=== PATIENT | male | born 1970 | race Caucasian/White ===

== ENCOUNTER 2022-08-05 09:52 | Emergency (ER) | payer OTHER, SELFPAY ==
[2022-08-05 09:58] VITALS: PULSE 104; RESP 18; TEMP 36.8; O2SAT 98; BMI 33.5
[2022-08-05 10:19] VITALS: BP 173/123; BMI 33.5
--- NOTE | 2022-08-05 10:20 | PC.NURSE ---
pt bp was 178/123 pt states he takes something for bp and he didnt this morning and states he is having 10/10 pain
--- NOTE | 2022-08-05 10:24 | PC.NURSE ---
Blood pressure rechecked and is 180/110 manually. Pt states he did not take his meds yet today
--- NOTE | 2022-08-05 10:24 | ED.UPPEXIN1 ---
HPI - Extremity Injury (Upper) General Stated Complaint: UPPER EXTRMITY INJURY Time Seen by Provider: 08/05/22 10:19 Source: patient Mode of arrival: walk-in Limitations: no limitations History of Present Illness HPI narrative: this patient's here complaining of pain in his left bicep area. He was lifting some heavy equipment a couple days ago and felt a pop and tear. He is right-hand dominant. He's never had any injuries to his upper extremity. He does have insurance. He does not have a loss of feeling. Now is Some ecchymosis in the dependent portion of his left bicep. Did not have any pain in the shoulder. He did not fall. Related Data Home Medications Medication Instructions Recorded Confirmed albuterol sulfate 90 mcg/actuation 2 inh inhalation Q6H PRN shortness 08/05/22 08/05/22 aerosol inhaler (ProAir HFA) of breath or wheezing atorvastatin 20 mg tablet 20 mg PO QPM 08/05/22 08/05/22 chlorthalidone 25 mg tablet 25 mg PO DAILY 08/05/22 08/05/22 glipizide 10 mg tablet 10 mg PO DAILY 08/05/22 08/05/22 hydroxyzine pamoate 25 mg capsule 25 mg PO .qhs PRN anxiety 08/05/22 08/05/22 insulin detemir U-100 100 unit/mL 25 unit subcut QPM 08/05/22 08/05/22 subcutaneous solution (Levemir U-100 Insulin) lisinopril 20 mg tablet 20 mg PO DAILY 08/05/22 08/05/22 omeprazole 20 mg capsule,delayed 20 mg PO DAILY 08/05/22 08/05/22 release potassium chloride 10 mEq 10 meq PO DAILY 08/05/22 08/05/22 tablet,extended release (K-Tab) sildenafil 50 mg tablet 50 mg PO DAILY PRN sexual activity 08/05/22 08/05/22 venlafaxine 37.5 mg tablet 37.5 mg PO DAILY 08/05/22 08/05/22 Allergies Allergy/AdvReac Type Severity Reaction Status Date / Time metformin AdvReac Intermediate Uncoded 08/05/22 09:57 [facility] Medical History (Updated 08/05/22 @ 10:27 by Demetrius Abarca MD) Exam Narrative Exam Narrative: very pleasant gentleman vital signs show mild elevation of his blood pressure. We will recheck that. Overall examination awake alert oriented ?3 in no real discomfort. Problem focused examination Extremities shows ecchymosis over the dependent portion of the left biceps. He has exquisite tenderness to palpation with palpable defect in the left shoulder area at the area of the biceps tendon insertion. I cannot discriminate if it is short of the long head. His neurovascular examination is normal. We will try to contact orthopedic coverage today for follow-up and further evaluation and treatment Constitutional Vital Signs - 24 hr 08/05/22 09:58 08/05/22 10:19 Temperature 98.3 F Pulse Rate [Monitor] 104 H Respiratory Rate 18 Blood Pressure [Left Arm] 173/123 H Pulse Oximetry 98 Oxygen Delivery Method Room Air Course Vital Signs Vital signs: Vital Signs Temperature 98.3 F 08/05/22 09:58 Pulse Rate 104 H 08/05/22 09:58 Respiratory Rate 18 08/05/22 09:58 Pulse Oximetry 98 08/05/22 09:58 Oxygen Delivery Method Room Air 08/05/22 09:58 Temperature 98.3 F 08/05/22 09:58 Pulse Rate 104 H 08/05/22 09:58 Respiratory Rate 18 08/05/22 09:58 Blood Pressure 173/123 H 08/05/22 10:19 Pulse Oximetry 98 08/05/22 09:58 Oxygen Delivery Method Room Air 08/05/22 09:58 MDM - Extremity Injury (Upper) MDM Narrative Medical decision making narrative: patient was a semi-acute left biceps muscle tendon tear. We'll arrange follow-up. Must not use this arm until this is further evaluated. Discharge Plan Discharge Clinical Impression: Injury of tendon of biceps Patient Disposition: Home, Self-Care Time of Disposition Decision: 10:27 Prescriptions / Home Meds: No Action hydroxyzine pamoate 25 mg capsule 25 mg PO .qhs PRN (Reason: anxiety) potassium chloride [K-Tab] 10 mEq tablet extended release 10 meq PO DAILY atorvastatin 20 mg tablet 20 mg PO QPM lisinopril 20 mg tablet 20 mg PO DAILY glipizide 10 mg tablet 10 mg PO DAILY venlafaxine 37.5 mg tablet 37.5 mg PO DAILY chlorthalidone 25 mg tablet 25 mg PO DAILY omeprazole 20 mg capsule,delayed release(DR/EC) 20 mg PO DAILY sildenafil 50 mg tablet 50 mg PO DAILY PRN (Reason: sexual activity) Rx Instructions: administer 30 minutes to 4 hours before activity Levemir U-100 Insulin 100 unit/mL solution 25 unit subcut QPM albuterol sulfate [ProAir HFA] 90 mcg/actuation HFA aerosol inhaler 2 inh inhalation Q6H PRN (Reason: shortness of breath or wheezing) Additional Instructions: follow-up with orthopedics/no lifting left arm Stand Alone Forms: Portal Instructions Referrals: Physician,Non-Staff, MD [Primary Care Provider] - 1 week
--- NOTE | 2022-08-05 10:43 | ED_ITS ---
HPI - Extremity Injury (Upper) General Stated Complaint: UPPER EXTRMITY INJURY Time Seen by Provider: 08/05/22 10:19 Source: patient Mode of arrival: walk-in Limitations: no limitations History of Present Illness HPI narrative: patient's here complaining of pain in his left upper shoulder area. 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 He is right-handed dominant. He does not have a loss of feeling. Now he developed a little bit of ecchymosis as well in the distal biceps area. The rest of forearm wrist hand are normal. Related Data Home Medications Medication Instructions Recorded Confirmed albuterol sulfate 90 mcg/actuation 2 inh inhalation Q6H PRN shortness 08/05/22 08/05/22 aerosol inhaler (ProAir HFA) of breath or wheezing atorvastatin 20 mg tablet 20 mg PO QPM 08/05/22 08/05/22 chlorthalidone 25 mg tablet 25 mg PO DAILY 08/05/22 08/05/22 glipizide 10 mg tablet 10 mg PO DAILY 08/05/22 08/05/22 hydroxyzine pamoate 25 mg capsule 25 mg PO .qhs PRN anxiety 08/05/22 08/05/22 insulin detemir U-100 100 unit/mL 25 unit subcut QPM 08/05/22 08/05/22 subcutaneous solution (Levemir U-100 Insulin) lisinopril 20 mg tablet 20 mg PO DAILY 08/05/22 08/05/22 omeprazole 20 mg capsule,delayed 20 mg PO DAILY 08/05/22 08/05/22 release potassium chloride 10 mEq 10 meq PO DAILY 08/05/22 08/05/22 tablet,extended release (K-Tab) sildenafil 50 mg tablet 50 mg PO DAILY PRN sexual activity 08/05/22 08/05/22 venlafaxine 37.5 mg tablet 37.5 mg PO DAILY 08/05/22 08/05/22 Allergies Allergy/AdvReac Type Severity Reaction Status Date / Time metformin AdvReac Intermediate Uncoded 08/05/22 09:57 [facility] Medical History (Updated 08/05/22 @ 10:27 by Demetrius Abarca MD) Exam Narrative Exam Narrative: awake alert pleasant. His mild discomfort. Problem focused examination shows ecchymosis over the distal area of the left biceps. He has point tenderness at the area the biceps insertion into the shoulder. There is no pain in the shoulder and clavicle or the before meals joint. His elbow forearm and hand are otherwise normal. Constitutional Vital Signs - 24 hr 08/05/22 09:58 08/05/22 10:19 Temperature 98.3 F Pulse Rate [Monitor] 104 H Respiratory Rate 18 Blood Pressure [Left Arm] 173/123 H Pulse Oximetry 98 Oxygen Delivery Method Room Air Course Vital Signs Vital signs: Vital Signs Temperature 98.3 F 08/05/22 09:58 Pulse Rate 104 H 08/05/22 09:58 Respiratory Rate 18 08/05/22 09:58 Pulse Oximetry 98 08/05/22 09:58 Oxygen Delivery Method Room Air 08/05/22 09:58 Temperature 98.3 F 08/05/22 09:58 Pulse Rate 104 H 08/05/22 09:58 Respiratory Rate 18 08/05/22 09:58 Blood Pressure 173/123 H 08/05/22 10:19 Pulse Oximetry 98 08/05/22 09:58 Oxygen Delivery Method Room Air 08/05/22 09:58 MDM - Extremity Injury (Upper) MDM Narrative Medical decision making narrative: history of physical are consistent with a biceps tendon tear. I contacted on- call orthopedics and they'll see him this week. They placed him in a sling. Discharge Plan Discharge Clinical Impression: Injury of tendon of biceps Patient Disposition: Home, Self-Care Time of Disposition Decision: 10:27 Prescriptions / Home Meds: No Action hydroxyzine pamoate 25 mg capsule 25 mg PO .qhs PRN (Reason: anxiety) potassium chloride [K-Tab] 10 mEq tablet extended release 10 meq PO DAILY atorvastatin 20 mg tablet 20 mg PO QPM lisinopril 20 mg tablet 20 mg PO DAILY glipizide 10 mg tablet 10 mg PO DAILY venlafaxine 37.5 mg tablet 37.5 mg PO DAILY chlorthalidone 25 mg tablet 25 mg PO DAILY omeprazole 20 mg capsule,delayed release(DR/EC) 20 mg PO DAILY sildenafil 50 mg tablet 50 mg PO DAILY PRN (Reason: sexual activity) Rx Instructions: administer 30 minutes to 4 hours before activity Levemir U-100 Insulin 100 unit/mL solution 25 unit subcut QPM albuterol sulfate [ProAir HFA] 90 mcg/actuation HFA aerosol inhaler 2 inh inhalation Q6H PRN (Reason: shortness of breath or wheezing) Additional Instructions: follow-up with orthopedics/no lifting left arm Stand Alone Forms: Portal Instructions Referrals: Physician,Non-Staff, MD [Primary Care Provider] - 1 week
== END 2022-08-05 11:05 | disposition home or self-care (01) ==
PROVIDERS: Emergency Provider Emergency Medicine Emergency Medical Services
DX: S46.212A Strain of muscle, fascia and tendon of other parts of biceps, left arm, initial encounter (principal); X50.0XXA Overexertion from strenuous movement or load, initial encounter; Z79.899 Other long term (current) drug therapy; Z79.4 Long term (current) use of insulin
CPT/HCPCS: 99282

== ENCOUNTER 2023-03-22 10:15 | Outpatient (OUT) | payer OTHER, SELFPAY ==
[2023-03-22 10:58] LABS: Basophils Absolute Auto 0.1 10^3/uL (0.0-0.1); Eosinophils Absolute Auto 0.1 10^3/uL (0.0-0.7); Eosinophils Percent Auto 1.1 % (0.9-7.0); Hematocrit 44.2 % (42.0-54.0); Hemoglobin 15.7 g/dL (14.0-18.0); Immature Granulocytes Abs Auto 0.03 10^3/uL (0.00-0.03); Immature Granulocytes Pct Auto 0.3 % (0.0-0.5); Lymphocytes Absolute Auto 2.1 10^3/uL (1.2-3.8); Lymphocytes Percent Auto 23.5 % (20.5-60.0); Mean Corpuscular HGB Conc 35.5 g/dL (29.9-35.2); Mean Corpuscular Hemoglobin 30.4 pg (25.9-34.0); Mean Corpuscular Volume 85.7 fL (80.0-94.0); Mean Platelet Volume 10.6 fL (9.5-13.5); Monocytes Absolute Auto 0.8 10^3/uL (0.3-0.8); Neutrophils Absolute Auto 5.8 10^3/uL (1.4-6.5); Neutrophils Percent Auto 65.1 % (43.0-75.0); Platelet Count 268 10^3/uL (150-450); Red Blood Count 5.16 10^6/uL (4.70-6.10); Red Cell Distribution Width 12.7 % (11.0-15.0); White Blood Count 8.9 10^3/uL (4.0-11.0)
[2023-03-22 11:30] LABS: Alanine Aminotransferase 31 U/L (16-63); Albumin Globulin Ratio 0.9; Albumin Level 3.5 g/dL (3.4-5.0); Alkaline Phosphatase 68 U/L (46-116); Anion Gap 9.9; Aspartate Amino Transferase 15 U/L (15-37); BUN Creatinine Ratio 17.8; Bilirubin Total 0.8 mg/dL (0.2-1.0); Carbon Dioxide 32.6 mmol/L (21.0-32.0); Chloride 101 mmol/L (98-107); Chol HDL Ratio 3.4; Cholesterol 147 mg/dL (<=200); Estimated GFR (African America >60 (>=60); Estimated GFR (Non-African Ame >60 (>=60); Glucose 228 mg/dL (74-106); HDL Cholesterol 43 mg/dL (40-60); Potassium 3.5 mmol/L (3.5-5.1); Sodium 140 mmol/L (136-145); Total Protein 7.5 g/dL (6.4-8.2); Triglycerides 152 mg/dL (<=150); VLDL CHOLESTEROL 30.4 mg/dL
[2023-03-22 11:41] LABS: Prostate Specific Antigen Scrn 0.81 ng/mL (<=4.00)
[2023-04-01 12:13] LABS: Free Testosterone(Direct) 5.8 pg/mL (7.2-24.0); Testosterone 198 ng/dL (264-916)
== END 2023-03-22 10:16 | disposition home or self-care (01) ==
LOC: LAB 10:18
PROVIDERS: PCP Nurse Practitioner Family; Visit Provider Nurse Practitioner Family
DX: N52.9 Male erectile dysfunction, unspecified (principal); E11.9 Type 2 diabetes mellitus without complications; I10 Essential (primary) hypertension; Z12.5 Encounter for screening for malignant neoplasm of prostate
CPT/HCPCS: 36415; 80053; 80061; 84402; 84403; 85025; G0103

== ENCOUNTER 2025-01-05 09:24 | Outpatient (OUT) | payer OTHER, SELFPAY ==
--- OUTSIDE RECORDS SUMMARY | 2025-01-05 09:27 | XMS_ITS | Patient Health Record ---
Author Organization [facility] Address [address] [place] [address] Care Team Providers Care Group Sales Coordinator Name Role Phone Mitch SHAVER, Cj Primary Care Provider Unavailab Sloan Roldan Unavailable [phone] Reason For Referral No Information Medications Medication SIG (Take, Route, Frequency, Duration) Notes Start Date End Date Status lisinopril 10 mg take 1 tablet by ora l route every day ORAL LISINOPRIL Active Trileptal 300 mg take 1 tablet by ora l route 2 times every day ORAL TRILEPTAL Active indomethacin 50 mg take 1 capsule by or al route 3 times every day with food ORAL INDOMETHACIN Active Ultram 50 mg take 1 - 2 by Oral r oute every 6 - 8 hours Max of 3 per day. ORAL ULTRAM Active Plan Of Treatment No Information
--- OUTSIDE RECORDS SUMMARY | 2025-01-05 09:27 | XMS_ITS | Clinical Summary ---
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 Primary Care Provider Allergies Active AllergyReactionsCriticalityNoted DateCommentsMetforminDiarrhea,GI jjgpmzlefmv00/28/2023 Medications MedicationSigDispense QuantityRefillsLast FilledStart DateEnd DateStatus hydrOXYzine HCl (Atarax) 25 MG tablet 03/04/2022ctive atorvastatin (Lipitor) 20 MG tablet 03/04/2022ctive lisinopril 20 MG tablet 09/12/2021ctive glipiZIDE (Glucotrol) 10 MG tablet 02/26/2022ctive venlafaxine (Effexor) 37.5 MG tablet 03/04/2022ctive chlorthalidone (Hygroton) 25 MG tablet 03/04/2022ctive omeprazole (PriLOSEC) [address] capsule 03/04/2022ctive Levemir FlexTouch 100 UNIT/ML pen 03/11/2022ctive ProAir HFA 108 (90 Base) MCG/ACT inhaler 09/12/2021ctive potassium chloride ER (Micro-K) 10 MEQ ER capsule Take 10 mEq by mouth in the morning and 10 mEq before bedtime. Do not crush or chew. .Active sildenafil (Viagra) 50 MG tablet Take 50 mg by mouth Daily as needed for erectile dysfunction.Active Active Problems ProblemNoted DateDiagnosed DateAcute postoperative pain of left shoulder 12/15/2023S/P arthroscopy of left ggujyayu61/04/2024cute pain of left shoulder 09/29/2023Traumatic complete tear of left rotator cuff09/29/2023 Family History Medical HistoryRelationNameCommentsSkin cancerFatherStrokeMotherRelationName StatusCommentsFatherAliveMotherAlive Social History Tobacco UseTypesPacks/DayYears UsedDateSmoking Tobacco: NeverSmokeless Tobacco: CurrentChew Tobacco Cessation:Ready to Q uit: Not Asked; Counseling Given: Not Answered Alcohol UseStandard Drinks/WeekCommentsYes0 (1 standard drink = 0.6 oz pure alcohol)Sex and Gender InformationValueDate RecordedSex Assigned at BirthNot on fileLegal AjtHqpo7708/05/2022 11:20 AM EDTGender IdentityNot on fileSexual OrientationNot on file Last Filed Vital Signs Vital SignReadingTime TakenCommentsBlood Pressure--Pulse--Temperature-- Respiratory Rate--Oxygen Saturation--Inhaled Oxygen Concentration--Kehjho938 kg (283 lb)10/23/2023 8:31 AM ZFWZfqynf856.9 cm (6')10/23/2023 8:31 AM EDTBody Mass Index38.3809 8:31 AM EDT Plan of Treatment Not on file Insurance [address] [place] [address] Care Teams Team MemberRelationshipSpecialtyStart DateEnd Date Korina Crews NP [address] [place] [address] [place] [address] [facility]03/24/23
--- NOTE | 2025-01-05 09:28 | US_ITS ---
The [address] [address] Patient Name: RICHARD DUMONT MRN: [id number] date: 1970 Sex: M Assigned Patient Location: US Current Patient Location: US Accession/Order Number: [id number] Exam Date: 01/05/2025 09:30 Report Date: 01/05/2025 10:18 At the request of: OLU ENCARNACION Procedure: US abdomen limited LIMITED ULTRASOUND - left lower quadrant wall: CLINICAL HISTORY: Painful left lower quadrant lump/swelling for the past 2 weeks COMPARISON: None Real-time ultrasound evaluation of the area of patient's lump was performed. The right side was also scanned for comparison. The subcutaneous soft tissues appear edematous. There is also an irregular complex appearing fluid collection at the site of concern measuring at least 5.8 x 2.2 x 5.5 cm in size. There is some reverberation artifact which could indicate the presence of air. Soft tissue abscess is the leading differential consideration. Correlation and follow-up will be needed. US/US abdomen limited IMPRESSION: EDEMA WITH COMPLEX SUBCUTANEOUS FLUID COLLECTION AT THE LEFT LOWER QUADRANT. ABSCESS IS POSSIBLE IN THE CORRECT CLINICAL SETTING. CLINICAL CORRELATION IS RECOMMENDED. CT FOLLOW-UP COULD BE CONSIDERED IF ADDITIONAL IMAGING EVALUATION IS WARRANTED. Impression dictated by: Susy Greene M.D. 01/05/2025 10:18 AM Dictation Location: [place] [address] Electronically authenticated by: [id number] Y Date: 01/05/2025 10:18
--- OUTSIDE RECORDS SUMMARY | 2025-01-05 09:29 | XMS_ITS | CCD ---
Author Organization [facility] Care Team Providers Care Manual Arts Therapist Name Role Phone PHYLLIS CRUZ Attending Unavailable FANI KLEIN Primary Care Unavailable FANI KLEIN Consulting Unavailable Fani Klein Primary Care Provider [phone] Pete Jc Primary Care Provider Pete Jc DDS Primary Care Provider Darren ARTEAGA - Noreen DAILEY Primary Care Provider NOREEN CHAMPION Primary Care Unavailable NOREEN CHAMPION Referring Unavailable FANI KLEIN Primary Care Unavailable Noreen Champion CNP Primary Care Provider NO, PHYSICIAN Primary Care Unavailable QASIM DICKEY Attending Unavailab Korina Mcneil Unavailable Korina Crews NP Primary Care Provider Umesh Fitzgerald Unavailable JENNI Crews Primary Care Provider MD Umesh Fitzgerald Attending Provider YO CORRALES Attending Unavailable YO CORRALES Attending Unavailable YO CORRALES Referring Unavailable JR. GONG GEORGE C Attending Unavaila ALAN Owens Attending Unavailable JR. URSULA, KILLIAN Orr Attending Unavaila YO Holloway Attending Unavailable YO CORRALES Attending Unavailable BRITTNEY, ALINA Attending Unavailable YO CORRALES Referring Unavailable BRITTNEY, ALINA Attending Unavailable YO CORRALES Referring Unavailable BRITTNEY, ALINA Attending Unavailable YO CORRALES Referring Unavailable KARINE CARTER Attending Unavailable YO CORRALES Referring Unavailable YO CORRALES Attending Unavailable KARINE CARTER Attending Unavailable CORRALES, YO J Referring Unavailable MORRIS REDDING Attending Unavailable CORRALES, YO J Referring Unavailable BRITTNEY, ALINA Attending Unavailable CORRALES, YO J Referring Unavailable BRITTNEY, ALINA Attending Unavailable CORRALES, YO J Referring Unavailable CORRALES, YO J Attending Unavailable BRITTNEY, ALINA Attending Unavailable CORRALES, YO J Referring Unavailable WEREBEKA GRANGER Attending Unavailable SANDRA SCHREIBER Attending Unavailable CORRALES, YO García Referring Unavailable MARQUIS JIMENEZ Attending Unavailable CORRALES, YO J Referring Unavailable CORRALES, YO J Attending Unavailable SANDRA SCHREIBER Attending Unavailable Korina Crews Primary Care Unavailable Asaad, Imad Attending Unavailable Asaad, Imad Admitting Unavailable KORINA CREWS Primary Care Physician SALVADOR COREA Attending Unavailab SALVADOR Herr Admitting Unavailab KORINA Herr E Attending Unavailable KORINA COREA E Attending Unavailable KORINA HERNANDEZ E Attending Unavailable KORINA HERNANDEZ E Admitting Unavailable KORINA HERNANDEZ E Attending Unavailable Odessa Em Referring Unavailable KORINA Attending Unavailable KORINA HERNANDEZ E Attending Unavailable KORINA HERNANDEZ E Admitting Unavailable KORINA E Attending Unavailable Trinity Estes Attending Unavailable Allergies Allergy ClassificationReported Allergen(s)Allergy TypeDate of OnsetReaction(s) Facility (1 source)No Known Medication Allergies; Translations: [No Known Medication Allergies]Propensity to adverse reactions to drug (disorder)[facility] (11 sources)-No Environmental AllergiesAllergy to substanceHealth [facility] Work Phone: (20 sources)metFORMIN; Translations: [metformin]Drug Badqwed89-64-9118Ffvxydhk, GI intolerance, Stomach ache (finding)[facility] (1 source)metFORMINDrug Ongolwt80-50[facility]9060[facility] Medications Current Medications MedicationDrug Class(es)DatesSig (Normalized)Sig (Original)acetaminophen 325 mg / HYDROcodone bitartrate 5 mg oral tablet (14 sources)Opioid AgonistStart: 07-68-2664whrm 1 tablet by mouth every six hoursHYDROcodone-acetaminophen ([place]) 5-325 MG tablet Take 1 tablet by mouth every 6 (six) hours. 0 08/05/2022 ActiveStart: 03-23-2015 End: 78-64-8158EHHKXgqfweq-Acetaminophen 10-325 MG OR TABS 03/23/2015 - 01/10/2020 Provider:acetaminophen 325 mg / oxyCODONE hydrochloride 5 mg oral tablet (9 sources)Opioid AgonistStart: 12-29-2023 End: 61-73-7672xxnd 1 tablet by mouth every eight hours for painoxyCODONE- acetaminophen (Percocet) 5-325 MG tablet Indications: S/P arthroscopy of left shoulder Take 1 tablet by mouth every 8 (eight) hours if needed for severe pain for up to 5 days 15 tablet 12/29/2023 01/03/2024 ActiveStart: 12-09-2023 End: 90-25-4014zrfu 1 tablet by mouth every six hours for painoxyCODONE- acetaminophen (Percocet) 5-325 MG tablet Indications: Post-op pain Take 1 tablet by mouthevery 6 (six) hours if needed for moderate pain for up to 5 days 20 tablet 12/09/2023 12/14/2023 ActiveStart: 11-21-2023 End: 27-93-9604ejoj 1 tablet by mouth every six hours for painoxyCODONE- acetaminophen (Percocet) 5-325 MG tablet Indications: Post-op pain Take 1 tablet by mouthevery 6 (six) hours if needed for moderate pain for up to 5 days 20 tablet 11/21/2023 11/26/2023 [id number] 200 actuat albuterol 0.09 mg/actuat metered dose inhaler (20 sources)beta2-Adrenergic AgonistStart: 81-32-3830ewgu 1 puff(s) by inhalation every four hoursAlbuterol Sulfate Active 2 PUFF INHALATION Every 4 hours April 21, 2023 12:00amStart: 49-24-2073PitQfu HFA 108 (90 Base) MCG/ACT inhaler 09/12/2021 ActiveStart: 32-07-5527LdtFhi HFA 108 (90 Base) MCG/ACT Inhalation Aerosol Solution 05/22/2020 Provider: Noreen Champion CNPStart: 76-85-5459BmfBti HFA 108 (90 Base) MCG/ACT Inhalation Aerosol Solution 05/22/2020 Provider: Noreen Champion CNPtake 2 puff(s) by inhalation every four hours as neededAlbuterol Sulfate HFA 108 (90 Base) MCG/ACT 2 puffs as needed Inhalation every 4 hrs Activetake 2 puff(s) by inhalation every six hours as needed for wheezingalbuterol sulfate HFA 108 (90 BASE) MCG/ACT inhaler Inhale 2 puffs into the lungs every 6 hours as needed for Wheezing 0 Activetake 2 puff(s) by inhalation every six hours as needed for wheezingalbuterol sulfate HFA 108 (90 BASE) MCG/ACT inhaler Inhale 2 puffs into the lungs every 6 hours as needed for Wheezing 0 ActiveAlcohol Prep 70% Pad (2 sources)Start: 63-66-2718Fprigrg Prep 70% Pad 05/22/2020 Provider: Noreen Champion CNPAlcohol Prep 70% Pad (9 sources)Start: 86-29-1776Mbwzsmt Prep 70% Pad 05/22/2020 Provider: Noreen Champion CNPatorvastatin 20 mg oral tablet (20 sources)HMG-CoA Reductase InhibitorStart: 31-81-7846xdqkxcdsvsmp (Lipitor) 20 MG tablet 03/04/2022 ActiveStart: 05-22-2020 End: 22-78-1709Vhlfhgcoruhi Calcium 20 MG Oral Tablet 12/20/2020 Provider: Noreen Champion CNPchlorthalidone 15 mg oral tablet (20 sources)Thiazide-like DiureticStart: 35-46-6879lsvw 15 mg by mouth once dailychlorthalidone 15 mg, Oral, Daily, Refills(s) 0 Start Date: 04/12/24 Status: Ordered Repeat number: 1Start: 42-45-2822gcjcqcbkqnpppi (Hygroton) 25 MG tablet 03/04/2022 ActiveStart: 07-20-2020 End: 69-69-1795Ipxdwxyieiybev 25 MG Oral Tablet 11/08/2020 - 12/20/2020 Provider: Noreen Champion CNPStart: 08-26-2016 End: 86-85-7029Aqsewfpdzvbbxz 25 MG OR TABS 04/25/2017 - 01/10/2020 Provider:0.5 ML dulaglutide 6 MG/ML Auto-Injector [Trulicity] (20 sources)GLP-1 Receptor AgonistStart: 87-60-0893Qlvcvbult Pen 3 mg/0.5 mL subcutaneous solution 3 mg, Refills(s) 0 Start Date: 04/12/24 Status: Ordered Repeat number: 1Start: 14-81-1631Ndfyizcqa Pen 3 mg/0.5 mL subcutaneous solution 3 mg, Refills(s) 0 Start Date: 04/12/24 Status: OrderedStart: 08-25-2020 End: 95-74-6115Rykvoqeoz 0.75 MG/0.5ML Subcutaneous Solution Pen-injector 08/25/2020 - 08/25/2020 Provider: Tavia FELTONStart: 05-22-2020 End: 59-79-5381Ywutwnudp 0.75 MG/0.5ML Subcutaneous Solution Pen-injector 05/22/2020 - 07/20/2020 Provider: Tavia FELTONglipiZIDE 10 mg oral tablet (20 sources)SulfonylureaStart: 33-41-8271vmxloPGFE 10 mg, Oral, Refills(s) 0 Start Date: 04/12/24 Status: Ordered Repeat number: 1Start: 50-19-0475iesz 5 mg by mouth once dailyGlipizide Active 5 MG PO Daily April 21, 2023 12:00amStart: 33-59-8555zjpjlFSLJ (Glucotrol) 10 MG tablet 02/26/2022 Activetake 1 tablet by mouth every twenty-four hoursglipiZIDE XL 10 MG 1 tablet with food Orally Once a day for 90 days ActiveglipiZIDE XL 5 MG Oral Tablet Extended Release 24 Hour (7 sources)Start: 83-93-9205yvft 1 tablet by mouth every twenty-four hours glipiZIDE XL 5 MG Oral Tablet Extended Release 24 Hour 12/20/2020 Provider: Noreen Champion CNPStart: 08-25-2020 End: 41-67-1862mena 1 tablet by mouth every twenty-four hoursglipiZIDE XL 5 MG Oral Tablet Extended Release 24 Hour 08/25/2020 - 12/20/2020 Provider: Noreen Champion CNPStart: 07-40-2741kpyv 1 tablet by mouth every twenty-four hours glipiZIDE XL 5 MG Oral Tablet Extended Release 24 Hour 08/25/2020 Provider: Noreen Champion CNPhydrOXYzine hydrochloride 25 mg oral tablet (20 sources)AntihistamineStart: 26-65-6213fotgADIhsaj HCl (Atarax) 25 MG tablet 03/04/2022 ActiveStart: 05-22-2020 End: 64-27-3529rsmpACAyvti HCl 25 MG Oral Tablet 12/06/2020 - 02/04/2021 Provider: Noreen Champion CNPinsulin detemir (20 sources)Insulin AnalogStart: 48-00-6968ievmyj 10 [IU] by subcutaneous injection once daily at bedtimeInsulin Detemir U-100 Active 10 UNIT SUBCUT Daily at bedtime April 21, 2023 12:00amStart: 50-96-9197Nwtfxqc FlexTouch 100 UNIT/ML pen 03/11/2022 ActiveStart: 08-25-2020 End: 55-27-7665Sjojxnv 100 UNIT/ML Subcutaneous Solution 12/20/2020 Provider: Noreen Champion CNPStart: 07-21-2020 End: 99-27-3196Uboggzq 100 UNIT/ML Subcutaneous Solution 08/01/2020 - 08/01/2020 Provider: Tiffanie Lopez CNPinject 10 [IU] by subcutaneous injection at bedtimeLevemir FlexPen 100 UNIT/ML 10 units Subcutaneous at bedtime for 30 days ActiveLevemir FlexPen 100 UNIT/ML 25 units Subcutaneous at bedtime Active lisinopril 30 mg oral tablet (20 sources)Angiotensin Converting Enzyme InhibitorStart: 68-47-1129udljgnhxgk 30 mg Tab 30 mg = 1 tab(s), Refills(s) 0 Start Date: 04/12/24 Status: Ordered Repeat number: 1Start: 28-08-7898rgxvtlzglj 20 MG tablet 09/12/2021 ActiveStart: 12-05-2020 End: 98-85-4525Wbpppmltos 20 MG Oral Tablet 12/20/2020 Provider: Noreen Champion CNPStart: 05-22-2020 End: 18-99-0279Sdojjtvfml 10 MG Oral Tablet 07/20/2020 - 12/05/2020 Provider: Noreen Champion CNPStart: 03-07-2018 End: 11-72-7283LBZVFJOAHA MISC 03/07/2018 - 01/10/2020 Provider:Start: 03-07-2018 End: 39-53-5913DUVHQEJIYA MISC 03/07/2018 - 03/07/2018 Provider:Start: 04-17-2016 End: 39-53-5559Ndmafcycjz 40 MG OR TABS 04/25/2017 - 01/10/2020 Provider:Start: 12-25-2015 End: 44-16-1773Uhjemdihmb 30 MG OR TABS 12/25/2015 - 01/10/2020 Provider: loratadine 10 mg oral tablet (5 sources)Start: 19-37-4381Axfyugotzt 10 MG Oral Tablet 11/13/2020 Provider: Tiffanie Lopez CNPomeprazole 20 mg delayed release oral capsule (20 sources)Proton Pump InhibitorStart: 77-51-4636eipkbuwryj (PriLOSEC) [address] capsule 03/04/2022 ActiveStart: 07-20-2020 End: 61-15-0125Viohlkrngk 20 MG Oral Capsule Delayed Release 11/08/2020 - 12/08/2020 Provider: Noreen Champion CNPtake 1 tablet by mouth before mealtime omeprazole OTC (PriLOSEC OTC) 20 MG EC tablet Take 20 mg by mouth in the morning. Take before meals. Do not crush, chew, or split.. 0 Activepotassium chloride 10 meq extended release oral tablet (20 sources)Start: 52-96-0685exlp 10 mEq by mouth twice dailyPotassium Chloride Active 10 MEQ PO Twice daily April 21, 2023 12:00amStart: 07-20-2020 End: 69-44-2000Tgmhjmioc Chloride ER 10 MEQ Oral Tablet Extended Release 11/08/2020 - 12/08/2020 Provider: Noreen Champion CNPtake 1 capsule by mouth in the morningpotassium chloride ER (Micro-K) 10 MEQ ER capsule Take 10 mEq by mouth in the morning and 10 mEq before bedtime. Do not crush or chew. . Active sildenafil 50 mg oral tablet (20 sources)Phosphodiesterase 5 InhibitorStart: 83-58-3146wwsoafakzr 50 mg Tab 50 mg = 1 tab(s), Refills(s) 0 Start Date: 04/12/24 Status: Ordered Repeat number: 1Start: 87-74-6693lrxq 50 mg by mouth once dailySildenafil Active 50 MG PO Daily April 21, 2023 12:00amStart: 07-20-2020 End: 19-78-2653Ugzfox 25 MG Oral Tablet 10/20/2020 - 12/05/2020 Provider: Brandyn Handley MD60 actuat testosterone 20.25 mg/actuat topical gel (3 sources)AndrogenStart: 06-22-2024 End: 11-55-6427MjwrzOzq Pump 20.25 mg/1.25 g (1.62%) transdermal gel 60.75 mg = 3 pump, Topical, qAM, apply to clean, dry, intact skin. to shoulders and/or upper arms. wash hands thoroughly after application., X 30day(s), # 150 gm, Refills(s) 2, Pharmacy: [id number], 180, cm, 05/31/24 8:41:00 EDT, Height/Length Dosing, 121, kg, 05/31/24 8:41:00 EDT, Weight Dosing Start Date: 06/22/24 Stop Date: 09/20/24 Status: Ordered Quantity: 150.0 Unit: g Repeat number: 3True Metrix Meter Device (2 sources)Start: 25-29-9902Rvyk Metrix Meter Device 05/22/2020 Provider: Noreen Champion CNPTrue Metrix Meter Device (9 sources)Start: 87-70-3260Egnx Metrix Meter Device 05/22/2020 Provider: Noreen Champion CNPvenlafaxine 37.5 mg oral tablet (20 sources)Serotonin and Norepinephrine Reuptake InhibitorStart: 03-04-2022 venlafaxine (Effexor) 37.5 MG tablet 03/04/2022 ActiveStart: 12-05-2020 End: 10-44-8056bibb 1 tablet by mouth every twenty-four hoursVenlafaxine HCl ER 37.5 MG Oral Tablet Extended Release 24 Hour 12/20/2020 Provider: Noreen Champion CNP Completed/Discontinued Medications MedicationDrug Class(es)DatesSig (Normalized)Sig (Original)ALCOHOL PREP PADS MISC (4 sources)Start: 02-20-2016 End: 56-93-1013DLGMTHE PREP PADS MISC 02/20/2016 - 02/20/2016 Provider:ALCOHOL PREP PADS MISC (18 sources)Start: 02-20-2016 End: 38-84-5870TCQQHGR PREP PADS MISC 02/20/2016 - 01/10/2020 Provider:Start: 02-20-2016 End: 28-52-1424MKANKPH PREP PADS MISC 02/20/2016 - 02/20/2016 Provider: ALPRAZolam 1 mg oral tablet (11 sources)BenzodiazepineStart: 07-12-2016 End: 20-23-9699URMGKOqmxy 1 MG OR TABS 07/12/2016 - 01/10/2020 Provider: amLODIPine (20 sources)Dihydropyridine Calcium Channel BlockerStart: 04-25-2017 End: 03-74-9412AOOUIBCALB 10 mg MISC 04/25/2017 - 01/10/2020 Provider:Start: 04-25-2017 End: 17-82-6334YVWSROWGDE 10 mg MISC 04/25/2017 - 04/25/2017 Provider:Start: 04-17-2016 End: 95-04-7134IGWZGIYDHN 10 mg MISC 04/17/2016 - 01/10/2020 Provider:Start: 04-17-2016 End: 72-52-6279ZOPMWPNVTE 10 mg MISC 04/17/2016 - 04/17/2016 Provider:Start: 05-29-2015 End: 70-54-4948HZASLYFZOB 10 mg MISC 05/29/2015 - 01/10/2020 Provider:Start: 05-29-2015 End: 83-64-0005WDFUKPKCKN 10 mg MISC 05/29/2015 - 05/29/2015 Provider:Start: 02-27-2015 End: 44-54-2880BCFMBDRHKM 5 MG MISC 02/27/2015 - 01/10/2020 Provider:Start: 02-27-2015 End: 80-22-2704CLJUDCFJQI 5 MG MISC 02/27/2015 - 02/27/2015 Provider:Start: 11-28-2014 End: 05-33-4907SMXPBBGLAR 5 MG MISC 11/28/2014 - 01/10/2020 Provider:Start: 11-28-2014 End: 37-51-7310EQXCQDZKTZ 5 MG MISC 11/28/2014 - 11/28/2014 Provider:amoxicillin 500 mg oral tablet (11 sources)Penicillin-class AntibacterialStart: 02-29-2020 End: 21-92-8021Dlxwmqxjqze 500 MG Oral Tablet 02/29/2020 - 03/07/2020 Provider: Pete Jc DDSamoxicillin 500 mg / clavulanate 125 mg oral tablet (20 sources)Penicillin-class AntibacterialStart: 01-10-2017 End: 69-05-9806Iswyxhngk 500-125 MG OR TABS 04/25/2017 - 01/10/2020 Provider: Start: 11-28-2014 End: 34-88-8172Flekteuxtjn-Pot Clavulanate 875-125 MG OR TABS 04/29/2016 - 01/10/2020 Provider:azithromycin 250 mg oral tablet (12 sources)Macrolide AntimicrobialStart: 04-21-2023 End: 70-68-5780Qpdqhztmlwbv Discontinued 250 MG PO daily 6 5 April 21, 2023 12:00am April 30, 2023 6:56am Take2 today and then 1 for the next 4 daysStart: 05-22-2020 End: 15-99-4610Rjxxguoeugof 250 MG Oral Tablet 05/22/2020 - 07/20/2020 Provider: Noreen Champion CNP5 ml bupivacaine hydrochloride 5 mg/ml injection (8 sources)Amide Local AnestheticStart: 03-25-2023 End: 43-17-1154fqtjqyrtsnn PF (Marcaine) 0.5 % injection 0.5 mLStart: 03-25-2023 End: 52-25-8217tpwqtottjpe PF (Marcaine) 0.5 % injection 1 mLbusPIRone (20 sources)Start: 04-25-2017 End: 84-02-4493MUQKFSRDN 15 MG MISC 04/25/2017 - 01/10/2020 Provider:Start: 04-25-2017 End: 78-94-1857XTYKGREFH 15 MG MISC 04/25/2017 - 04/25/2017 Provider:Start: 09-25-2016 End: 62-55-0323KMGPFOBSF 15 MG MISC 09/25/2016 - 01/10/2020 Provider:Start: 09-25-2016 End: 02-97-1819KTGPHJVJI 15 MG MISC 09/25/2016 - 09/25/2016 Provider:Start: 04-17-2016 End: 82-14-6984GBCXLYVTB 15 MG MISC 04/17/2016 - 01/10/2020 Provider:Start: 04-17-2016 End: 82-69-1341JGFQHZKCV 15 MG MISC 04/17/2016 - 04/17/2016 Provider:Start: 02-16-2016 End: 45-97-6664JOYGRMKLQ 15 MG MIS 02/16/2016 - 01/10/2020 Provider:Start: 02-16-2016 End: 99-29-8453GKMQYDPUW 15 MG MISC 02/16/2016 - 02/16/2016 Provider:Start: 10-17-2015 End: 06-14-1531UFJRYTDII 10 MG [facility] 10/17/2015 - 01/10/2020 Provider:Start: 10-17-2015 End: 51-86-1858RGBSRNWZP 10 MG MIS 10/17/2015 - 10/17/2015 Provider: ciprofloxacin 750 mg oral tablet (11 sources)Quinolone AntimicrobialStart: 03-23-2015 End: 15-47-7740Hscaedckrufom HCl 750 MG OR TABS 03/23/2015 - 01/10/2020 Provider:Codeine / guaiFENesin (11 sources)Opioid AgonistStart: 01-10-2017 End: 23-20-5220TKWFBBVHQCN AC 10-100 MG/5 ML MISC 01/10/2017 - 01/10/2020 Provider:Start: 01-10-2017 End: 34-76-4405BYEWTYUWAGZ AC 10-100 MG/5 ML [facility] 01/10/2017 - 01/10/2017 Provider:dexamethasone 4 mg oral tablet (20 sources)CorticosteroidStart: 11-28-2014 End: 45-13-9938Mvelhmyiuxvuu 4 MG OR TABS 08/23/2015 - 01/10/2020 Provider: etodolac 500 mg oral tablet (13 sources)Nonsteroidal Anti-inflammatory DrugStart: 03-08-2015 End: 97-44-3349Vmzpprzt 500 MG OR TABS 03/08/2015 - 01/10/2020 Provider: FLUoxetine (20 sources)Serotonin Reuptake InhibitorStart: 04-25-2017 End: 29-85-8259RYMLIJOIHW 60 MG MISC 04/25/2017 - 01/10/2020 Provider:Start: 04-25-2017 End: 75-17-8234ABXAFIEUIJ 60 MG MISC 04/25/2017 - 04/25/2017 Provider:Start: 07-22-2016 End: 32-23-7784IVVYPHMADD 60 MG MISC 07/22/2016 - 01/10/2020 Provider:Start: 07-22-2016 End: 06-48-5174LUPCYKFPCI 60 MG MISC 07/22/2016 - 07/22/2016 Provider:Start: 04-17-2016 End: 60-58-9123MTGFJQZMID 40 MG MISC 04/17/2016 - 01/10/2020 Provider:Start: 04-17-2016 End: 45-08-4932UJLIBUUOLT 40 MG MISC 04/17/2016 - 04/17/2016 Provider:Start: 11-23-2015 End: 94-22-0856KKIWOZYADG 40 MG MISC 11/23/2015 - 01/10/2020 Provider:Start: 11-23-2015 End: 83-83-3032KHTUSFMDMC 40 MG MISC 11/23/2015 - 11/23/2015 Provider:Start: 10-17-2015 End: 04-28-3161ZCQJSQWDVD 20 MG MISC 10/17/2015 - 01/10/2020 Provider:Start: 10-17-2015 End: 38-41-4001EYNXIZQZGS 20 MG MISC 10/17/2015 - 10/17/2015 Provider: hydroCHLOROthiazide 12.5 mg / lisinopril 20 mg oral tablet (20 sources)Thiazide Diuretic, Angiotensin Converting Enzyme InhibitorStart: 11-28-2014 End: 12-35-5805Oibilhpwum-hydroCHLOROthiazide 20-12.5 MG TABS 02/27/2015 - 01/10/2020 Provider:HYDROCODONE-HOMATROPINE 5-1.5 MG/5 ML MISC (2 sources)Start: 04-29-2016 End: 03-32-7058JKZWNTFQRIN-HOMATROPINE 5-1.5 MG/5 ML MISC 04/29/2016 - 04/29/2016 Provider:HYDROCODONE-HOMATROPINE 5-1.5 MG/5 ML MISC (9 sources)Start: 04-29-2016 End: 31-88-7477YRPQOMNXQIZ-HOMATROPINE 5-1.5 MG/5 ML [facility] 04/29/2016 - 01/10/2020 Provider:Start: 04-29-2016 End: 40-23-0231VQIUXCQSNWN-HOMATROPINE 5-1.5 MG/5 ML [facility] 04/29/2016 - 04/29/2016 Provider:Hydrocortisone (11 sources)CorticosteroidStart: 11-08-2016 End: 05-04-2550PHTDRWPDPE-HC 2.5% [facility] 11/08/2016 - 01/10/2020 Provider:Start: 11-08-2016 End: 72-55-1729GLBUYAMJME-HC 2.5% [facility] [place] 11/08/2016 - 11/08/2016 Provider:insulin glargine 100 unt/ml injectable solution (8 sources)Insulin AnalogStart: 07-20-2020 End: 67-97-5558Riqtax 100 UNIT/ML Subcutaneous Solution 07/20/2020 - 08/01/2020 Provider: Noreen Champion CNPLEVEMIR FLEXTOUCH 100 unit/mL (3 ML) [facility] (4 sources)Start: 11-08-2016 End: 20-09-7102FJSYNFC FLEXTOUCH 100 unit/mL (3 ML) [facility] [place] [place] 11/08/2016 - 11/08/2016 Provider:Start: 12-25-2015 End: 32-85-3724TASNFWN FLEXTOUCH 100 unit/mL (3 ML) [facility] [place] [place] 12/25/2015 - 12/25/2015 Provider:LEVEMIR FLEXTOUCH 100 unit/mL (3 ML) [facility] (18 sources)Start: 11-08-2016 End: 80-53-3024OLAGMHG FLEXTOUCH 100 unit/mL (3 ML) [facility] [place] [place] 11/08/2016 - 01/10/2020 Provider:Start: 11-08-2016 End: 35-19-5812AVEDSNE FLEXTOUCH 100 unit/mL (3 ML) [facility] [place] [place] 11/08/2016 - 11/08/2016 Provider:Start: 12-25-2015 End: 60-69-4711QJDYDCN FLEXTOUCH 100 unit/mL (3 ML) [facility] 12/25/2015 - 01/10/2020 Provider:Start: 12-25-2015 End: 49-10-8778AUCPDUR FLEXTOUCH 100 unit/mL (3 ML) MISC 12/25/2015 - 12/25/2015 Provider:LEVEMIR FLEXTOUCH U-100 INSUL 100 unit/mL (3 ML) MISC (2 sources)Start: 04-25-2017 End: 80-02-2437GJCCVIH FLEXTOUCH U-100 INSUL 100 unit/mL (3 ML) MISC 04/25/2017 - 04/25/2017 Provider:LEVEMIR FLEXTOUCH U-100 INSUL 100 unit/mL (3 ML) MISC (9 sources)Start: 04-25-2017 End: 98-88-9346UFXGJKN FLEXTOUCH U-100 INSUL 100 unit/mL (3 ML) MISC 04/25/2017 - 01/10/2020 Provider:Start: 04-25-2017 End: 01-10-9386UJZPPOI FLEXTOUCH U-100 INSUL 100 unit/mL (3 ML) MISC 04/25/2017 - 04/25/2017 Provider:meloxicam 15 mg oral tablet (20 sources)Nonsteroidal Anti-inflammatory DrugStart: 02-27-2015 End: 92-08-5055Hkppo 15 MG OR TABS 02/27/2015 - 01/10/2020 Provider:metFORMIN (20 sources)BiguanideStart: 04-17-2016 End: 13-24-9609WLNXBACLI 1,000 MG MISC 04/17/2016 - 01/10/2020 Provider:Start: 04-17-2016 End: 82-07-8497AKDZRCSLP 1,000 MG MISC 04/17/2016 - 04/17/2016 Provider:Start: 06-28-2015 End: 63-19-2318RDRICKKXK 1,000 MG MISC 06/28/2015 - 01/10/2020 Provider:Start: 06-28-2015 End: 58-47-5828WENUMQLBU 1,000 MG MISC 06/28/2015 - 06/28/2015 Provider:Start: 02-27-2015 End: 41-91-2667TRGMAAYJS 1,000 MG MISC 02/27/2015 - 01/10/2020 Provider:Start: 02-27-2015 End: 18-32-2618JUBNFNDKQ 1,000 MG MISC 02/27/2015 - 02/27/2015 Provider:Start: 11-28-2014 End: 64-82-9828QYZJRSBYN 1,000 MG MISC 11/28/2014 - 01/10/2020 Provider:Start: 11-28-2014 End: 74-22-2813JXAQWNQZF 1,000 MG MISC 11/28/2014 - 11/28/2014 Provider: metFORMIN (GLUCOPHAGE) 1000 MG tablet Take 500 mg by mouth 2 times daily (with meals) 0 Activemethocarbamol 500 mg oral tablet (20 sources)Muscle RelaxantStart: 03-21-2015 End: 82-33-2339Gjurlpo 500 MG OR TABS 05/29/2015 - 01/10/2020 Provider:1 ml methylPREDNISolone acetate 40 mg/ml injection (13 sources)CorticosteroidStart: 03-25-2023 End: 30-67-0097rzdvxjYARVTYVyufny acetate (DEPO-Medrol) injection 40 mgStart: 11-13-2020 End: 48-90-2806Eqkyej 4 MG Oral Tablet Therapy Pack 11/13/2020 - 12/05/2020 Provider: Tiffanie Lopez CNPDWDMENWYMPQ-HBSMPUALHK-NKEY-HC 3.5-400-10,000 MG-UNIT/G- MISC (2 sources)Start: 11-28-2014 End: 26-64-4588CGMPISQM-CBZXJNBMYP-BDEC-KS 3.5-400-10,000 MG-UNIT/G- MISC 11/28/2014 - 11/28/2014 Provider:LLMLKGJF-NQAFPZAYIA-HQCA-HC 3.5-400-10,000 MG-UNIT/G- MISC (9 sources)Start: 11-28-2014 End: 10-11-4761EVXOKAOC-CRFCNZKHXQ-CEQX-YW 3.5-400-10,000 MG-UNIT/G- MISC 11/28/2014 - 01/10/2020 Provider:Start: 11-28-2014 End: 10-09-0664JDNVOHQE-FWORNKEAXJ-ZWRE-AS 3.5-400-10,000 MG-UNIT/G- MISC 11/28/2014 - 11/28/2014 Provider:ONETOUCH ULTRA TEST MISC (4 sources)Start: 03-07-2017 End: 50-74-6747ZTSHLGUI ULTRA TEST MISC 03/07/2017 - 03/07/2017 Provider: ONETOUCH ULTRA TEST MISC (18 sources)Start: 03-07-2017 End: 95-61-5559ESCFUNPD ULTRA TEST MISC 03/07/2017 - 01/10/2020 Provider:Start: 03-07-2017 End: 71-13-0117TESGQAGJ ULTRA TEST MISC 03/07/2017 - 03/07/2017 Provider: OXcarbazepine 300 mg oral tablet (20 sources)Anti-epileptic AgentStart: 01-09-2015 End: 63-65-3512Vzwgduatc 300 MG OR TABS 02/27/2015 - 01/10/2020 Provider: oxyCODONE (20 sources)Opioid AgonistStart: 03-27-2015 End: 09-31-9240POWSCMAZN 10 MG MISC 03/27/2015 - 01/10/2020 Provider:Start: 03-27-2015 End: 62-03-6685MYVZWMTNO 10 MG MISC 03/27/2015 - 03/27/2015 Provider:Start: 03-23-2015 End: 10-98-5142SCXBHRYYN 10 MG MISC 03/23/2015 - 01/10/2020 Provider:Start: 03-23-2015 End: 97-65-8791XWFLYTPVU 10 MG MISC 03/23/2015 - 03/23/2015 Provider:PROAIR HFA 90 MCG/ACTUAT MISC (2 sources)Start: 11-28-2014 End: 22-84-0233GSIQIG HFA 90 MCG/ACTUAT MISC 11/28/2014 - 11/28/2014 Provider: PROAIR HFA 90 MCG/ACTUAT MISC (9 sources)Start: 11-28-2014 End: 89-17-4229JNEICR HFA 90 MCG/ACTUAT MISC 11/28/2014 - 01/10/2020 Provider: Start: 11-28-2014 End: 24-27-5110GSEDGV HFA 90 MCG/ACTUAT MISC 11/28/2014 - 11/28/2014 Provider: Propranolol (20 sources)beta-Adrenergic BlockerStart: 07-04-2016 End: 95-71-2801ELTYPVYNSGR 40 MG MISC 07/04/2016 - 01/10/2020 Provider:Start: 07-04-2016 End: 04-20-2810RWAGCQBSFCS 40 MG MISC 07/04/2016 - 07/04/2016 Provider:Start: 11-23-2015 End: 75-39-9727KFNIBHTWXHL 40 MG MISC 11/23/2015 - 01/10/2020 Provider:Start: 11-23-2015 End: 11-65-2203DKDVYLBQAYX 40 MG MISC 11/23/2015 - 11/23/2015 Provider: QUEtiapine (11 sources)Atypical AntipsychoticStart: 07-22-2016 End: 18-82-7487ABWAZFHXQW 50 MG MISC 07/22/2016 - 01/10/2020 Provider:Start: 07-22-2016 End: 38-74-0391GZATVMECZM 50 MG MISC 07/22/2016 - 07/22/2016 Provider: simvastatin 10 mg oral tablet (20 sources)HMG-CoA Reductase InhibitorStart: 02-27-2015 End: 44-98-5007Kznvq 10 MG OR TABS 06/28/2015 - 01/10/2020 Provider:SITagliptin 100 mg oral tablet (14 sources)Dipeptidyl Peptidase 4 InhibitorStart: 05-26-2020 End: 55-09-3160Uvqrpcf 100 MG Oral Tablet 11/08/2020 - 12/08/2020 Provider: Noreen Champion CNPtriamcinolone acetonide 1 mg/ml topical cream (11 sources)CorticosteroidStart: 04-25-2017 End: 83-42-6157Mnjzjzyxsmdfy Acetonide 0.1% EX CREA 04/25/2017 - 01/10/2020 Provider:TRUE METRIX GLUCOSE METER MISC (8 sources)Start: 04-25-2017 End: 76-18-9088UBIA METRIX GLUCOSE METER MISC 04/25/2017 - 04/25/2017 Provider: Start: 02-20-2016 End: 38-02-6316NWDU METRIX GLUCOSE METER MISC 02/20/2016 - 02/20/2016 Provider: TRUE METRIX GLUCOSE METER MISC (20 sources)Start: 04-25-2017 End: 20-48-7468YIXE METRIX GLUCOSE METER MISC 04/25/2017 - 01/10/2020 Provider: Start: 04-25-2017 End: 56-83-4349KZVI METRIX GLUCOSE METER MISC 04/25/2017 - 04/25/2017 Provider: Start: 02-20-2016 End: 47-57-4870CNQN METRIX GLUCOSE METER MISC 02/20/2016 - 01/10/2020 Provider: Start: 02-20-2016 End: 62-07-8289QPHK METRIX GLUCOSE METER MISC 02/20/2016 - 02/20/2016 Provider: TRUE METRIX GLUCOSE TEST STRI MISC (8 sources)Start: 04-25-2017 End: 07-89-8142DIGU METRIX GLUCOSE TEST STRI MISC 04/25/2017 - 04/25/2017 Provider:Start: 02-20-2016 End: 54-01-4660VOKZ METRIX GLUCOSE TEST STRI MISC 02/20/2016 - 02/20/2016 Provider:TRUE METRIX GLUCOSE TEST STRI MISC (20 sources)Start: 04-25-2017 End: 88-21-0379XTXO METRIX GLUCOSE TEST STRI MISC 04/25/2017 - 01/10/2020 Provider:Start: 04-25-2017 End: 62-13-4271XKBW METRIX GLUCOSE TEST STRI MISC 04/25/2017 - 04/25/2017 Provider:Start: 02-20-2016 End: 71-13-8132DTTK METRIX GLUCOSE TEST STRI MISC 02/20/2016 - 01/10/2020 Provider:Start: 02-20-2016 End: 63-79-5571UAFK METRIX GLUCOSE TEST STRI MISC 02/20/2016 - 02/20/2016 Provider:VENTOLIN HFA 90 MCG/ACTUAT MISC (8 sources)Start: 04-25-2017 End: 13-33-4442PSHRZSWD HFA 90 MCG/ACTUAT MISC 04/25/2017 - 04/25/2017 Provider: Start: 02-20-2016 End: 12-29-3557LPBHIJFH HFA 90 MCG/ACTUAT MISC 02/20/2016 - 02/20/2016 Provider: Start: 06-28-2015 End: 55-23-9949GSGAJUJA HFA 90 MCG/ACTUAT MISC 06/28/2015 - 06/28/2015 Provider: Start: 12-22-2014 End: 33-19-9475AUNQSKQA HFA 90 MCG/ACTUAT MISC 12/22/2014 - 12/22/2014 Provider: VENTOLIN HFA 90 MCG/ACTUAT MISC (20 sources)Start: 04-25-2017 End: 24-34-4516LVNVWCOZ HFA 90 MCG/ACTUAT MISC 04/25/2017 - 01/10/2020 Provider: Start: 04-25-2017 End: 93-18-5418FQZCQLKR HFA 90 MCG/ACTUAT MISC 04/25/2017 - 04/25/2017 Provider: Start: 02-20-2016 End: 48-42-8930FWORUDFU HFA 90 MCG/ACTUAT MISC 02/20/2016 - 01/10/2020 Provider: Start: 02-20-2016 End: 88-61-2652VMZCASDV HFA 90 MCG/ACTUAT MISC 02/20/2016 - 02/20/2016 Provider: Start: 06-28-2015 End: 71-10-1854QDZFQYHB HFA 90 MCG/ACTUAT MISC 06/28/2015 - 01/10/2020 Provider: Start: 06-28-2015 End: 52-24-8073GSXUYRME HFA 90 MCG/ACTUAT MISC 06/28/2015 - 06/28/2015 Provider: Start: 12-22-2014 End: 83-54-0753XSCBTPXV HFA 90 MCG/ACTUAT MISC 12/22/2014 - 01/10/2020 Provider: Start: 12-22-2014 End: 11-89-9200JNOHGMNC HFA 90 MCG/ACTUAT MISC 12/22/2014 - 12/22/2014 Provider: Problems Active Problems Problem ClassificationProblemDateDocumented DateEpisodic/ChronicAdjustment disorders (19 sources)Adjustment disorder with mixed anxiety and depressed mood; Translations: [Adjustment disorder with mixed anxiety and depressed mood]Onset: 27-95-2686FjopmniQeblamo-related disorders (5 sources)Alcohol abuse; Translations: [Alcohol abuse, unspecified]Onset: 80-93-6391SujwyzrVsemwwb disorders (11 sources)Anxiety disorder; Translations: [Anxiety state, unspecified]Onset: 26-95-6950MxftxopAsbzky (6 sources)Asthma; Translations: [Disease condition determination, well controlled]Onset: 04-45-9996AejcsyvDzfrbzx obstructive pulmonary disease and bronchiectasis (2 sources)Bronchitis; Translations: [Bronchitis, not specified as acute or chronic]12-70-0218WagybzoeOqnldemvclapo and procreative management (1 source)Encounter for other general counseling and advice on contraception EpisodicDiabetes mellitus with complications (20 sources)Type 2 diabetes mellitus without complication; Translations: [Diabetes mellitus without mention of complication, type II or unspecified type, uncontrolled]Onset: 57-36-6759GaoinxsJlxxptys mellitus without complication (2 sources)Type 2 diabetes mellitus without complicationsChronicDisorders of lipid metabolism (1 source)Hyperlipidemia; Translations: [Hyperlipidemia, unspecified]04-21-2023 ChronicEsophageal disorders (5 sources)Gastro-esophageal reflux disease with esophagitis; Translations: [Gastroesophageal reflux disease with esophagitis without hemorrhage]04-21-2023 ChronicEssential hypertension (20 sources)Essential hypertension; Translations: [Unspecified essential hypertension]Onset: 94-33-8111KokeirkGtdpnleffft of prostate (8 sources)Benign prostatic hypertrophy without outflow obstruction; Translations: [Benign prostatic hyperplasia without lower urinary tract symptoms]Onset: 700139-44-5080QuycurmSqhg disorders (13 sources)Bipolar disorder; Translations: [Bipolar disorder, unspecified] Onset: 28-11-8577TyxwxtvDzqbhbvdflmjyk (8 sources)Bilateral arthritis of knees; Translations: [Bilateral primary osteoarthritis of knee]ChronicOther aftercare (5 sources)Long-term current use of insulin; Translations: [residential (current) use of insulin]20-73-3688PjwvtdvhIptvx aftercare (1 source)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) use of insulinEpisodicOther connective tissue disease (2 sources)Impingement syndrome of left shoulder region; Translations: [Impingement syndrome of left shoulder]00-95-0918HehlkmqnOwfng male genital disorders (20 sources)Male erectile dysfunction, unspecified; Translations: [Erectile dysfunction (disorder)]Onset: 21-78-2314TbudoivKwmmr nervous system disorders (3 sources)Chronic pain; Translations: [Other chronic pain]ChronicOther nervous system disorders (1 source)Other chronic painChronicOther nervous system disorders (2 sources)Postoperative pain ; Translations: [Other acute postprocedural pain] 28-68-4096SqtnmnybLcwyf nervous system disorders (20 sources)Shoulder pain; Translations: [Other acute postprocedural pain]Onset: 665047-21-0092VivglrmbTwuqi non-traumatic joint disorders (3 sources)Derangement of left shoulder joint; Translations: [Other specific joint derangements of left shoulder, not elsewhere classified]79-89-3983Usimwnv Other nutritional; endocrine; and metabolic disorders (17 sources)Simple obesity ; Translations: [Obesity, unspecified]Onset: 07-77-1688LdavfflOaubr nutritional; endocrine; and metabolic disorders (17 sources)Finding of body mass index; Translations: [Body mass index (observable entity)]Onset: 39-34-2175FhokrvyOizjv screening for suspected conditions (not mental disorders or infectious disease) (20 sources)Encounter for screening for diabetes mellitus; Translations: [Diabetes Risk Test Score]Onset: 04-93-5409OhmyhlfoLjoqg upper respiratory disease (5 sources)Allergic rhinitis; Translations: [Allergic rhinitis, cause unspecified]Onset: 55-96-3879XpkvfqmIbrrkbed codes; unclassified (6 sources)Sleep apnea; Translations: [Sleep apnea, unspecified]Onset: 07-32-3497WgrzcfbQvtiwhdf codes; unclassified (20 sources)History of arthroscopic procedure on shoulder; Translations: [Other specified postprocedural states]Onset: 933141-65-9703LuoqkiskSrbzlwwn codes; unclassified (6 sources)Tobacco user; Translations: [Tobacco use]Onset: 41-45-4194Bgzmhpit Screening and history of mental health and substance abuse codes (4 sources)Tobacco use and exposure - oyibouu71-94-1709UcwmutdRvuqmogqrjov (1 source)Contusion of left hand; Translations: [Contusion of left hand, initial encounter]Unclassified (6 sources)Prescription of drug; Translations: [Substance with 6-ubzkjgo-1-methylglutaryl-coenzyme A reductaseinhibitor mechanism of action (substance)]Onset: 08-01-2020 Past or Other Problems Problem ClassificationProblemDateDocumented DateEpisodic/ChronicEsophageal disorders (1 source)Esophageal disordersOther gastrointestinal disorders (2 sources)H/O: hematemesis; Translations: [Personal history of other diseases of the digestive system]Onset: 020586-12-0998HwnatnbuOsdoq non-traumatic joint disorders (20 sources)Pain in left shoulder; Translations: [Pain in joint, shoulder region]Onset: 77-33-0608TklmhekbMubbavpc codes; unclassified (6 sources)Tobacco dependence syndrome; Translations: [Tobacco use]Onset: 87-67-7240DcwstfhdZkbfcoj and strains (20 sources)Rupture of tendon of biceps; Translations: [Strain of muscle, fascia and tendon of other parts of biceps, left arm, subsequent encounter]Onset: 218499-03-3071VccqjvjhWvyfoijihfmu (5 sources)Finding of body mass index; Translations: [Body mass index (observable entity)]Onset: 87-42-4850Wgrvmilixvgo (5 sources)Exposure to Severe acute respiratory syndrome coronavirus 2 (event); Translations: [Exposure To Covid-19]Onset: 11-13-2020 Results Test NameValueInterpretationReference RangeFacilityProvider Letteron 08-26-2024 Provider LetterProvider Letter August 26, 2024 RICHARD DUMONT [address] [facility] [address] [place] [id number] : 1970 Dear Richard, We have been trying to reach you with no success. You have an appointment with Korina Corea on 09/13/24 which will need to be rescheduled since she will be out of the office that day. Please contact the office at the number listed below to get this appointment rescheduled at your earliest convenience. Thank you for your prompt attention to this matter. Sincerely, [facility] [facility] [place] [address] VafwjnUbslkyMiami Valley HospitalProvider Letteron 08-24-2024 Provider LetterProvider Letter August 24, [address] [place] [address] : 1970 Dear Mr. Dumont, We have been trying to reach you with no success. You have an appointment with [facility], FELICITY Barnett, on September 13 which will need to be rescheduled since she will be out of the office. Please contact the office at the number listed below to get this appointment rescheduled at yourearliest convenience. We will be making your next appointment now with Dr Gomez. Thank you for your prompt attention to this matter. Please call [phone]. Sincerely, [facility] HospitalAmbulatory Visit Summaryon 66-54-8684Mlaplgbimk Visit SummaryAmbulatory Visit Summary RICHARD DUMONT :1970 Visit Date:08/02/2024 Ambulatory Visit Instructions Your Diagnosis Low testosterone Erectile dysfunction BPH without urinary obstruction Tobacco use Your Care Team Attending Physician - KORINA COREA PA-C Primary Care Physician - KORINA CREWS CNP This Is Your Medications List chlorthalidone dulaglutide (Trulicity Pen 3 mg/0.5 mL subcutaneous solution) glipiZIDE lisinopril (lisinopril 30 mg Tab) sildenafil (sildenafil 50 mg Tab) testosterone (AndroGel Pump 20.25 mg/1.25 g (1.62%) transdermal gel) Procedures Performed Cholecystectomy, History of repair of rotator cuff. Discharge Vitals Heart Rate (Peripheral) 96 Respiratory Rate 18 Blood Pressure 138/88 Height 180 cm Height 71 in Weight 126 kg Weight 277.782 lb BMI 38.89 What to do next Scheduled Follow-Up Appointments Friday 8:40 AM EDT With: KORINA COREA PA-C Where: [facility] [address] [place] [id number]- You Need to Complete the Following Testosterone Level Total, Blood, Routine collect, *Est. 09/13/24 +/- 7 day(s), Order for future visit, Lab Collect, Low testosterone, Print Label By Order Location Medications What How Much When Instructions Unchanged chlorthalidone 15 Milligram By Mouth Every day Unchanged dulaglutide (Trulicity Pen 3 mg/ 0.5 mL subcutaneous solution) 3 Milligram Unchanged glipiZIDE 10 Milligram By Mouth Unchanged lisinopril (lisinopril 30 mg Tab) 1 Tablets Unchanged sildenafil (sildenafil 50 mg Tab) 1 Tablets Unchanged testosterone (AndroGel Pump 20.25 mg/ 1.25 g (1.62%) transdermal gel) 3 Pump Topical Oncea day (in the morning) Duration: 30 Days apply to clean, dry, intact skin. to shoulders and/ or upper arms. wash hands thoroughly after application. Allergies metFORMIN (Stomach pain) Problems Ongoing - Any problem that you are currently receiving treatment for. BPH without urinary obstruction Erectile dysfunction Low testosterone Patient Survey You may receive a survey via text or e-mail asking about your office visit. Please share your experience with us by completing your survey. We appreciate your feedback and thank you for choosing us for your care. Education [employer] Health Risks of Smoking Smoking tobacco is very bad for your health. Tobacco smoke contains many toxic chemicals that can damage every part of your body. Secondhand smoke can be harmful to those around you. Tobacco or nicotine use can cause many long-term (chronic) diseases. Smoking is difficult to quit because a chemical in tobacco, called nicotine, causes addiction or dependence. When you smoke and inhale, nicotine is absorbed quickly into your bloodstream through yourlungs. Both inhaled and non-inhaled nicotine may be addictive. How can quitting affect me? There are health benefits of quitting smoking. Some benefits happen right away and others take time. Benefits may include: ??? Blood flow, blood pressure, heart rate, and lung capacity may begin to improve. However, any lung damage that has already occurred cannot be repaired. ??? Respiratory symptoms from smoking, such as nasal congestion and cough, may improve over time. ??? Your risk of heart disease, stroke, and cancer is reduced. ??? The overall quality of your health may improve. ??? You may save money, as you will not spend money on tobacco products and may spend less money on smoking-related health issues. What can increase my risk? Smoking harms nearly every organ in the body. People who smoke tobacco have a shorter life expectancy and an increased risk of many serious medical problems. These include: ??? More respiratory infections, such as colds and pneumonia. ??? Cancer. ??? Heart disease. ??? Stroke. ??? Chronic respiratory diseases. ??? Delayed wound healing and increased risk of complications during surgery. ??? Problems with reproduction, , and childbirth, such as infertility, early (premature) births, stillbirths, and defects. Secondhand smoke exposure to children increases the risk of: ??? Sudden infant syndrome (SIDS). ??? Infections in the nose, throat, or airways (respiratory infections). ??? Chronic respiratory symptoms. What actions can I take to quit? Smoking is an addiction that affects both your body and your mind, and long-time habits can be hardto change. Your health care provider can recommend: ??? Nicotine replacement products, such as patches, gum, and nasal sprays. Use these products only as directed. Do not replace cigarette smoking with electronic cigarettes, which are commonly called e-cigarettes. The safety of e-cigarettes is not known, and some may contain harmful chemicals. ??? Programs and community res (more content not included)...[facility] Hospital[facility] Office/Clinic Noteon [phone] Office/Clinic Note Urology Office/Clinic Note Chief Complaint pt here for follow up with labs HPI Staff Pt is here for a 2 month follow up for TRT Magdaleno gel 3 pump daily testosterone level: 04-12-24 197 previous DX: Low testosterone, BPH, erectile dysfunction pt denies pain/burning denies visible blood denies flank pain reports fatigue SHIMS: 14 IPSS: 7 Pt declines giving urine sample today Review of Systems PHQ Score Initial Depression Screen Score: 0 SCORE No fever, chills, malaise, myalgia. No abdominal pain, flank pain, gross hematuria. Physical Exam Vitals & Measurements HR: 96(Peripheral) RR: 18 BP: 138/88 HT: 71 in HT: 180 cm WT: 277.782 lb WT: 126 kg BMI: 38.89 General: nontoxic, NAD Mouth: moist mucosa Lungs: normal respiratory effort Cardio: regular rate, good distal perfusion Abdomen: nondistended Neurologic: Grossly normal Skin: No rashes or suspicious lesions Assessment/Plan 1. Low testosterone (R79.89: Other specified abnormal findings of blood chemistry) 04/12/24: Hx IDDM2 (A1c 12.2 in Nov. on Trulicity. Now A1c 7.3), HLD (recently resumed atorvastatin), HTN (lisinopril & chlorthalidone), GERD (omeprazole), ED, Anxiety (venlafaxine) Recently joined [employer] Pt has the following symptoms of low Testosterone: Energy severe decrease Strength mild decrease Stamina/Endurance mild decrease Libido severe decrease Mood mild changes Weight/Fat storage - used to be 475# has lost 200# Baseline labs: 03/22/23 Nl renal function Cholesterol nl, Trigs barely elevated 152 (<150nl) PSA 0.81 Hgb 15.7 Hct 44.2 Total T 198, Free T 5.8 Updated labs: 04/12/24 Testosterone total 197 PSA 0.81 LFTs, H&H - nl Lipids - Trigs worse than last year - 213 and VLDL high. Already on Pt has appt w PCP in a few weeks. Will mention this to her. We also discussed diet changes. LH, FSH, Prolactin - nl 05/31/24: Started Androgel 2 pumps daily on 04/19/24. Pt has been using consistently and hasn't noticed any improvement. No side effects. No difficulty w application. Will increase to 3 pumps daily and check back in (via call) in 1 mo. If still not noticing improvement, can increases to 4 pumps daily. TODAY: Tried calling several times to check on dose effect of 3 pumps daily. Unable to make contact w pt. Repeat Testosterone 07/30/24 - 289 which is improved but still low. Energy no noticeable changes Strength no noticeable changes Stamina/Endurance no noticeable changes Libido mild increase Mood mild worsening Weight/Fat storage no noticeable changes Will increase to 4 pumps daily. Return in 6 wks w repeat T level prior to appt. If still not at goal, will need to consider T injections. Ordered: Body Mass Index (BMI) documented 3008F Current tobacco non-user 1036F Depression Screening Negative 3352F E&M of Est. Patient Moderate 30-39 Min 39349 Influenza immunization status assessed 1030F Medication list documented in medical record 1159F Most recent diastolic blood pressure 80-89 mm Hg 3079F Review of all meds by a prescribing practitioner or clinical pharmacist documented in EHR 1160F Systolic BP 130-139 mm Hg (Most Recent) 3075F Testosterone Level Total 2. Erectile dysfunction (N52.9: Male erectile dysfunction, unspecified) 04/12/24: HERBERT 1. Failed Sildenafil 100mg. Worked at lower dose initially. Then stopped working even at higher doses and then max dose. We will table this for now and address #1 then revisit ED tx options. TODAY: HERBERT 14. Improvement noted but reports libido is still lacking (see #1). Ordered: Body Mass Index (BMI) documented 3008F Current tobacco non-user 1036F Depression Screening Negative 3352F E&M of Est. Patient Moderate 30-39 Min 36601 Influenza immunization status assessed 1030F Medication list documented in medical record 1159F Most recent diastolic blood pressure 80-89 mm Hg 3079F Review of all meds by a prescribing practitioner or clinical pharmacist documented in EHR 1160F Systolic BP 130-139 mm Hg (Most Recent) 3075F 3. BPH without urinary obstruction (N40.0: Benign prostatic hyperplasia without lower urinary tractsymptoms) 04/12/24: IPSS 5 QOL 1. UA completed in office today shows no microhematuria or signs of infection. No indication for tx at this time. TODAY: No changes. No urine provided today so no PVR done. Denies UTI sx. Ordered: Body Mass Index (BMI) documented 3008F Current tobacco non-user 1036F Depression Screening Negative 3352F E&M of Est. Patient Moderate 30-39 Min 15137 Influenza immunization status assessed 1030F Medication list documented in medical record 1159F Most recent diastolic blood pressure 80-89 mm Hg 3079F Review of all meds by a prescribing practitioner or clinical pharmacist documented in EHR 1160F Systolic BP 130-139 mm Hg (Most Recent) 3075F 4. Tobacco use (Z72.0: Tobacco use) Chew x 8yrs. Cessation encouraged. Ordered: Body Mass Index (BMI) documented 3008F (more content not included)...NormalHighland District HospitalComment on above: Result Comment: Electronically Signed By: KORINA COREA PA-C\.didi\Date and Time Signed: 08/02/2508:09 EDTTestost Totalon 51-99-3676Cotiyvear Oky655 ng/dL Invalid Interpretation [id number] District HospitalComment on above: Result Comment: Adult male reference interval is based on a population of healthy nonobese males (BMI <30) between 19 and 39 years old. javi Samuel.al. JCEM 2017,102;1901-5172. PMID: [id number]. Performed at: [facility] [id number] PhD Fe HerediaPerformed By: #### [id number] #### [facility] [address] [place], [place] [address]Alauqmsoxx Visit Summaryon 16-46-2998Cwqitqjzyv Visit Summary Ambulatory Visit Summary RICHARD DUMONT :1970 Visit Date:07/30/2024 Ambulatory Visit Instructions Your Diagnosis Low testosterone Your Care Team Attending Physician - KORINA COREA PA-C Primary Care Physician - KORINA CREWS CNP This Is Your Medications List chlorthalidone dulaglutide (Trulicity Pen 3 mg/0.5 mL subcutaneous solution) glipiZIDE lisinopril (lisinopril 30 mg Tab) sildenafil (sildenafil 50 mg Tab) testosterone (AndroGel Pump 20.25 mg/1.25 g (1.62%) transdermal gel) Procedures Performed Cholecystectomy, History of repair of rotator cuff. What to do next Scheduled Follow-Up Appointments Friday 8:20 AM EDT With: KORINA COREA PA-C Where: [facility] [place] [id number]- Medications What How Much When Instructions Unchanged chlorthalidone 15 Milligram By Mouth Every day Unchanged dulaglutide (Trulicity Pen 3 mg/ 0.5 mL subcutaneous solution) 3 Milligram Unchanged glipiZIDE 10 Milligram By Mouth Unchanged lisinopril (lisinopril 30 mg Tab) 1 Tablets Unchanged sildenafil (sildenafil 50 mg Tab) 1 Tablets Unchanged testosterone (AndroGel Pump 20.25 mg/ 1.25 g (1.62%) transdermal gel) 3 Pump Topical Oncea day (in the morning) Duration: 30 Days apply to clean, dry, intact skin. to shoulders and/ or upper arms. wash hands thoroughly after application. Allergies metFORMIN (Stomach pain) Problems Ongoing - Any problem that you are currently receiving treatment for. BPH without urinary obstruction Erectile dysfunction Low testosterone Tobacco use Patient Survey You may receive a survey via text or e-mail asking about your office visit. Please share your experience with us by completing your survey. We appreciate your feedback and thank you for choosing us for your care. [facility] HospitalAmbulatory Visit Summaryon 02-23-7592Ezvhtabufc Visit SummaryAmbulatory Visit Summary RICHARD DUMONT :1970 Visit Date:05/31/2024 Ambulatory Visit Instructions Your Diagnosis BPH without urinary obstruction Erectile dysfunction Your Care Team Attending Physician - KORINA COREA PA-C Primary Care Physician - KORINA CREWS CNP This Is Your Medications List chlorthalidone dulaglutide (Trulicity Pen 3 mg/0.5 mL subcutaneous solution) glipiZIDE lisinopril (lisinopril 30 mg Tab) sildenafil (sildenafil 50 mg Tab) testosterone (AndroGel Pump 20.25 mg/1.25 g (1.62%) transdermal gel) Procedures Performed Cholecystectomy, History of repair of rotator cuff. Discharge Vitals Temperature (Oral) 37 ???C Heart Rate (Peripheral) 98 Respiratory Rate 16 Blood Pressure 152/86 Height 71 in Height 180 cm Weight 266.759 lb Weight 121 kg BMI 37.35 Medications What How Much When Instructions Unchanged chlorthalidone 15 Milligram By Mouth Every day Unchanged dulaglutide (Trulicity Pen 3 mg/ 0.5 mL subcutaneous solution) 3 Milligram Unchanged glipiZIDE 10 Milligram By Mouth Unchanged lisinopril (lisinopril 30 mg Tab) 1 Tablets Unchanged sildenafil (sildenafil 50 mg Tab) 1 Tablets Unchanged testosterone (AndroGel Pump 20.25 mg/ 1.25 g (1.62%) transdermal gel) 2 Pump Topical Oncea day (in the morning) Duration: 30 Days apply to clean, dry, intact skin. to shoulders and/ or upper arms. wash hands thoroughly after application. Allergies metFORMIN (Stomach pain) Problems Ongoing - Any problem that you are currently receiving treatment for. BPH without urinary obstruction Erectile dysfunction Tobacco use Patient Survey You may receive a survey via text or e-mail asking about your office visit. Please share your experience with us by completing your survey. We appreciate your feedback and thank you for choosing us for your care. [facility] HospitalProvider Letteron 05-31-2024 Provider LetterProvider Letter May 31, 2024 RICHARD DUMONT [address] [facility] [address] [place] [id number] : 1970 To Whom It May Concern, Please excuse above patient from work. Date of Illness:05/31/2024 May Return to Work On:05/31/2024 Restrictions: None Comments: Please call the number below if you have any questions Sincerely, [facility] [address] [place] [phone] ext.[phone] [facility] HospitalUrology Office/Clinic Noteon 11-68-8250Ymhvthk Office/Clinic NoteUrology Office/Clinic Note Chief Complaint 6-7 wk f/u HPI Staff 6-7 week f/u with testosterone level for TRT. No current labs found on Clinisync. Testosterone done 04/12/24 - pt states he is still not keeping his erections and he has no energy Review of Systems PHQ Score Initial Depression Screen Score: 0 SCORE no fever, chills, malaise, myalgia. no rash/lesions. no chest pain, palpitations, or SOB. no abdominal pain, nausea, vomiting. Physical Exam Vitals & Measurements T: 37 ???C(Oral) HR: 98(Peripheral) RR: 16 BP: 152/86 HT: 180 cm HT: 71 in WT: 266.759 lb WT: 121 kg BMI: 37.35 General: nontoxic, NAD Assessment/Plan 1. 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 Now A1c 7.3), HLD (recently resumed atorvastatin), HTN (lisinopril & chlorthalidone), GERD (omeprazole), ED, Anxiety (venlafaxine) Recently joined [employer] Pt has the following symptoms of low Testosterone: Energy severe decrease Strength mild decrease Stamina/Endurance mild decrease Libido severe decrease Mood mild changes Weight/Fat storage - used to be 475# has lost 200# Baseline labs: 03/22/23 Nl renal function Cholesterol nl, Trigs barely elevated 152 (<150nl) PSA 0.81 Hgb 15.7 Hct 44.2 Total T 198, Free T 5.8 Updated labs: 04/12/24 Testosterone total 197 PSA 0.81 LFTs, H&H - nl Lipids - Trigs worse than last year - 213 and VLDL high. Already on Pt has appt w PCP in a few weeks. Will mention this to her. We also discussed diet changes. LH, FSH, Prolactin - nl Started Androgel 2 pumps daily on 04/19/24. Pt has been using consistently and hasn't noticed any improvement. No side effects. No difficulty w application. Will increase to 3 pumps daily (Risks/benefits/side effects discussed.) and check back in (via call) in 1 mo. If still not noticing improvement, can increases to 4 pumps daily. 2. Erectile dysfunction (N52.9: Male erectile dysfunction, unspecified) HERBERT 1. Failed Sildenafil 100mg. Worked at lower dose initially. Then stopped working even at higher doses and then max dose. We will table this for now and address #1 then revisit ED tx options. [1] Ordered: Body Mass Index (BMI) documented 3008F Current tobacco non-user 1036F Depression Screening Negative 3352F E&M of Est. Patient Moderate 30-39 Min 85243 Influenza immunization status assessed 1030F Medication list documented in medical record 1159F Most recent diastolic blood pressure >=90 mm Hg 3080F Most recent systolic blood pressure >= 140 mm Hg 3077F Patient screen for fall risk: no falls in last year or 1 fall with no injury in last year 1101F Review of all meds by a prescribing practitioner or clinical pharmacist documented in EHR 1160F Screened for tobacco use AND received tobacco cessation intervention 4004F Urnls Dip Stick Auto w/o Microscopy POC 00807 3. BPH without urinary obstruction (N40.0: Benign prostatic hyperplasia without lower urinary tractsymptoms) IPSS 5 QOL 1 [2] UA completed in office today shows no microhematuria or signs of infection. No indication for tx at this time. Ordered: Body Mass Index (BMI) documented 3008F Current tobacco non-user 1036F Depression Screening Negative 3352F E&M of Est. Patient Moderate 30-39 Min 73289 Influenza immunization status assessed 1030F Medication list documented in medical record 1159F Most recent diastolic blood pressure >=90 mm Hg 3080F Most recent systolic blood pressure >= 140 mm Hg 3077F Patient screen for fall risk: no falls in last year or 1 fall with no injury in last year 1101F Review of all meds by a prescribing practitioner or clinical pharmacist documented in EHR 1160F Screened for tobacco use AND received tobacco cessation intervention 4004F Urnls Dip Stick Auto w/o Microscopy POC 19644 4. Tobacco use (Z72.0: Tobacco use) Chew x 8yrs. Cessation encouraged. [3] Orders: testosterone, 60.75 mg = 3 pump, Topical, qAM, apply to clean, dry, intact skin. to shoulders and/or upper arms. wash hands thoroughly after application., X 30 day(s), # 88 gm, Refills(s) 5, Pharmacy: [facility]29, 180, cm, 05/31/24 8:41:00 EDT, Height... Follow-up With When Contact Information KORINA COREA PA-C, URL In 2 months [address] [facility] [place] [address] Additional Instructions: Patient Education Erectile Dysfunction Problem List/Past Medical History Ongoing BPH without urinary obstruction Erectile dysfunction Low testosterone Tobacco use Historical No qualifying data Procedure/Surgical History Cholecystectomy, History of repair of rotator cuff. Medications AndroGel Pump 20.25 mg/1.25 g (1.62%) transdermal gel, 60.75 mg= 3 pump, Topical, qAM, 5 refills chlorthalidone, 15 mg, Oral, Daily glipiZIDE, 10 mg, Oral lisinopril 30 mg Tab, 30 mg= 1 tab(s) sildenafil 50 mg Tab, 50 mg= 1 tab(s) Trulicity Pen 3 mg/0.5 mL (more content not included)...[facility] HospitalComment on above:Result Comment: Electronically Signed By: KORINA COREA PA-C\.br\Date and Time Signed: 05/31/2508:20 EDTProvider Letteron [phone] LetterProvider Letter May 12, 2024 [address] [place] [phone] : 1970 Dear Richard, We have been trying to reach you with no success. It is important that you return our call regarding a message from your provider upon receiving this letter. Also, at the time of your call, please provide us with your current information. Thank you for your prompt attention to this matter. Sincerely, [facility] [address] [place] [address] LmthevDmhvfnCherrington HospitalFSHon 23-48-9137Ivrpxqgpqgb Qn2.8 m[IU]/mLInvalid Interpretation Code1.5-12.4FMetroHealth Parma Medical Center Comment on above:Result Comment: Performed at: [address] [id number] PhD Fe Hurtadoformed By: #### [id number] #### [facility] [address] [place], [place] [address]ZClx 34-98-5295Lznocgsu Qn4.7 m[IU]/mLInvalid Interpretation Code1.7-8.6FMetroHealth Parma Medical CenterComment on above:Result Comment: Performed at: [address] [id number] PhD Fe Hurtadoformed By: #### [id number] #### [facility] [address], [place] [address]Iwockhw Totalon 13-46-9616Drtlevddamoz [Mass/Vol]197 ng/dLLow 264-916[facility] District HospitalComment on above:Result Comment: Adult male reference interval is based on a population of healthy nonobese males (BMI <30) between 19 and 39 years old. javi Samuel.al. JCEM 2017,102;9675-4397. PMID: 31747398. Performed at: [address] [id number] PhD Fe Hurtadoformed By: #### [id number] #### [facility] [address], [place] [address]Eidylaabzq Visit Summaryon 52-14-6726Fseetneawt Visit Summary Ambulatory Visit Summary RICHARD DUMONT :1970 Visit Date:03/20/2023 Ambulatory Visit Instructions Your Care Team Primary Care Physician - KORINA CREWS CNP This Is Your Medications List chlorthalidone dulaglutide (Trulicity Pen 3 mg/0.5 mL subcutaneous solution) glipiZIDE lisinopril (lisinopril 30 mg Tab) sildenafil (sildenafil 50 mg Tab) Procedures Performed Cholecystectomy, History of repair of rotator cuff. What to do next Scheduled Follow-Up Appointments Friday 8:20 AM EDT With: KORINA COREA PA-C Where: [facility] [address] [place] [address] [place] [address]- Medications What How Much When Instructions Unchanged chlorthalidone 15 Milligram By Mouth Every day Unchanged dulaglutide (Trulicity Pen 3 mg/ 0.5 mL subcutaneous solution) 3 Milligram Unchanged glipiZIDE 10 Milligram By Mouth Unchanged lisinopril (lisinopril 30 mg Tab) 1 Tablets Unchanged sildenafil (sildenafil 50 mg Tab) 1 Tablets Allergies metFORMIN (Stomach pain) Problems Ongoing - Any problem that you are currently receiving treatment for. BPH without urinary obstruction Erectile dysfunction Tobacco use Patient Survey You may receive a survey via text or e-mail asking about your office visit. Please share your experience with us by completing your survey. We appreciate your feedback and thank you for choosing us for your care. [facility]rington HospitalCHEMISTRYOrdered By: SYSTEM SYSTEM on 45-44-9350Yqnkksd [Mass/Vol]4.1 g/dLNormal3.3 - 5.0 gm/dLRemisol Chem Albumin/Globulin [Mass ratio]1.4 {ratio}Normal1.1 - 2.2Remisol ChemALP [Catalytic activity/Vol]55 [iU]/mWysjgg86 - 98 Int._Unit/LRemisol ChemALT No additional P-5'-P [Catalytic activity/Vol]22 [iU]/dNormal6 - 46 Int._Unit/L Remisol ChemAST [Catalytic activity/Vol]15 [iU]/dNormal5 - 43 Int._Unit/LRemisol ChemBilirubin [Mass/Vol]0.6 mg/dLNormal0.0 - 1.1 mg/dLRemisol Chem Bilirubin.direct [Mass/Vol]0.1 mg/dLNormal0.0 - 0.4 mg/dLRemisol Chem Bilirubin.indirect [Mass or moles/Vol]0.5 mg/dLNormal0.1 - 0.9 mg/dLRemisol Chem Cholesterol [Mass/Vol]122 mg/cDFdqmos249 - 200 mg/dLRemisol ChemCholesterol in HDL [Mass/Vol]37 mg/dLInvalid Interpretation CodeRemisol ChemComment on above: Result Comment: '>= 60 LOW RISK' '<= 40 HIGH RISK'Cholesterol in LDL [Mass/Vol]63 mg/dLNormal<=129mg/dLRemisol ChemCholesterol in VLDL [Mass/Vol]43 mg/dLHigh7 - 40 mg/dLRemisol ChemGlobulin (S) [Mass/Vol]2.9 g/dLNormal1.4 - 4.0 gm/dLRemisol UqmkYueentnwn48.88 ng/mL Normal2.64 - 13.13 ng/mLRemisol ChemProstate specific Ag [Mass/Vol]0.9 ng/mL Normal0.1 - 3.5 ng/mLRemisol ChemComment on above:Interpretive Data: The concentration of PSA determined by different manufacturers can vary due to di fferences in assay methods and reagent specificity. Values obtained from different assay methods cannot be used interchangeably. The methodology used for this result was chemiluminescence using [employer]'s Access Hybritech PSA reagent.Protein [Mass/Vol]7.0 g/dLNormal6.0 - 7.8 gm/dLRemisol ChemTriglyceride [Mass/Vol]213 mg/dLHigh<=149mg/dLRemisol ChemHEMATOLOGYOrdered By: Vinny Klein on 60-11-7687Zguwzkpprm (Bld) [Volume fraction]45.1 %Nnyhhi50.7 - 49.0 %Remisol HemeHemoglobin (Bld) [Mass/Vol]15.5 g/pTLnoaba66.5 - 17.5 gm/dLRemisol HemeHct & Hgbon 63-76-8436Xvajprpcro (Bld) [Volume fraction]45.1 %Tcvxrd62.7-49.0Fisher Chad Medical CenterComment on above:Performed By: #### [id number] #### [facility] [address] [place], [place] [address]Wbmhyecrkx (Bld) [Mass/Vol]15.5 g/vGKxdjlv03.5-17.5FMetroHealth Parma Medical CenterComment on above:Performed By: #### [id number] #### [facility] [address], [place] [address]Oiv Func Panelon 19-46-4538Nknpyxj [Mass/Vol]4.1 g/dLNormal 3.3-5.0[facility] District HospitalComment on above:Performed By: #### [id number] #### [facility] [address] [place] [address]Fyinovl/Globulin (S) [Mass conc ratio]1.8Hvmxns7.1-2.2FMetroHealth Parma Medical CenterComment on above:Performed By: #### [id number] #### [facility] [address] [place] [address]UCO [Catalytic activity/Vol]55 Int._Unit/XUbedkv50-52UlgmngHighland District HospitalComment on above:Performed By: #### [id number] #### [facility] [address] [place] [address]OAE No additional P-5'-P [Catalytic activity/Vol]22 Int._Unit/L Normal6-46[facility] HospitalComment on above:Performed By: #### [id number] #### [facility] [address] [place], [place] [address]SSG [Catalytic activity/Vol]15 Int._Unit/LNormal5-43[facility] HospitalComment on above:Performed By: #### [id number] #### [facility] [address] [place], [place] [address]Qtrxoboip [Mass/Vol]0.6 mg/dLNormal0.0-1.1FMetroHealth Parma Medical CenterComment on above:Performed By: #### [id number] #### [facility] [address] [place], [place] [address]Wopupbwie.direct [Mass/Vol]0.1 mg/dLNormal0.0-0.4FMetroHealth Parma Medical CenterComment on above:Performed By: #### [id number] #### [facility] [address] [place], [place] [address]Szwkoxijb.indirect [Mass or moles/Vol]0.5 mg/dLNormal0.1-0.9 [facility] HospitalComment on above:Performed By: #### [id number] #### [facility] [address] [place], [place] [address]Pckjqobd (S) [Mass/Vol]2.9 g/dLNormal1.4-4.0[facility] HospitalComment on above:Performed By: #### [id number] #### [facility] [address] [place] [address]Ahukkio [Mass/Vol]7.0 g/dLNormal6.0-7.8[facility] HospitalComment on above:Performed By: #### [id number] #### [facility] [address] [place] [address]Opkgn Panelon 61-59-3317Psjluogbapv [Mass/Vol]122 mg/dLNormal 120-200High[facility] HospitalComment on above:Performed By: #### [id number] #### [facility] [address], [place] [address]Uelobctjmcs in HDL [Mass/Vol]37 mg/dLInvalid Interpretation CodeHighland District HospitalComment on above:Result Comment: '>= 60 LOW RISK' '<= 40 HIGH RISK'Performed By: #### [id number] #### [facility] [address] [place] [address]Eofzpxjgkvz in LDL [Mass/Vol]63 mg/dLNormal<=129High[facility] District HospitalComment on above:Performed By: #### [id number] #### [facility] [address] [place], [place] [address]Pskwkzppznh in VLDL [Mass/Vol]43 mg/dLHigh7-40[facility] HospitalComment on above:Performed By: #### [id number] #### [facility] [address] [place], [place] [address]Tjlgcpwkygul [Mass/Vol]213 mg/dLHigh<=149[facility] District HospitalComment on above:Performed By: #### [id number] #### [facility] [address] [place], [place] [address]JBF Screen, Totalon 48-38-0817Plzumkxh specific Ag [Mass/Vol] 0.9 ng/mLNormal0.1-3.5FMetroHealth Parma Medical CenterComment on above:Result Comment: The concentration of PSA determined by different manufacturers can vary due to differences in assay methods and reagent specificity. Values obtained from different assay methods cannot be used interchangeably. The methodology used for this result was chemiluminescence using [employer]'s Access Hybritech PSA reagent.Performed By: #### [id number] #### [facility] [address] [place], [place] [address]Iqeyojqlrks 28-88-8246Smuwkcgyy67.88 ng/mLNormal2.64-13.13 [facility] HospitalComment on above:Performed By: #### [id number] #### [facility] [address] [place], [place] [address]Rlenibfg Letteron 48-57-3192Gctfixju LetterProvider Letter April 12, 2024 RICHARD DUMONT [address] [facility] [address] [place] [address] : 1970 To Whom It May Concern, Please excuse above patient from work. Date of Appointment: From: 04/12/2024 To: _ May Return to Work On:04/12/2024 Restrictions: none Comments: _ Sincerely, [facility] [address] [facility] [place] [address] [place] [address] IctrgaYwxmhtHighland District HospitalCapillary blood glucose measurement by glucometer (mass/volume)Ordered By: Imsiddhartha Asaad on 04-30-2023 Glucose [Mass/Vol]218 mg/dLRegional Medical CenterComment on above:Random Glucose Reference Range is dependent on time and content of last meal. Glucose of more than 200 mg/dL in a nonstressed, ambulatory subject supports the diagnosis of Diabetes Mellitus.Result Comment: Random Glucose Reference Range is dependent on time and content of last meal. Glucose of more than 200 mg/dL in a nonstressed, ambulatory subject supports the diagnosis of Diabetes Mellitus.Performed By: #### GLULS #### Point of Care testing ,Glucose Poct Glucometerson 32-27-7853Fbjlled3Mdq9: Cleaned [facility] County Physician GroupComment on above:Result Comment: PERFORMED BY: [facility] [address] [place] [address] PATHOLOGIST ARTIST AND REPERTOIRE MANAGER TEJAS BRANNON M.D.Performed By: #### GLULS #### Point of Care testing ,[place] 04-33-8568DEognfztc: [id number] Received: 04/30/23 Status: SOUT Req Num: [id number] Spec Type: Surgical Subm Dr: Umesh Fitzgerald MD Tissues: A Colon Biopsy (RECTAL POLYP) Procedures: HE/2, Gross/Micro L4 Age/ Patient Sex Location Account Attending Physician CongnoamRichard Johnson 52/M [id number] Umesh Fitzgerald MD SPEC NUM: [id number] RECD: 04/30/23 STATUS: SOUT RE NUM: [id number] IGNACIO: 04/30/[address]: Umesh Fitzgerald MD ENTERED: 04/30/[address] [facility] [address]: SPEC TYPE: Surgical DEPT: S ORDERED: HE/2, Gross/Micro L4 ORDERED: HE/2, Gross/Micro L4 Pathological Diagnosis Rectal polyp, biopsy: - Hyperplastic polyp. Clinical Information Screening Gross Description Received in formalin labeled with the patient's name, date of and rectal polyp is one patricia tissue measuring 0.4 x 0.3 x 0.1 cm. Entirely submitted in one cassette labeled A1. CPT Codes 25604 Specimen: [id number] Received: 04/30/23 Status: JAJA Barbsoaujliane Num: [id number] Spec Type: Surgical Subm Dr: Umesh Fitzgerald MD Tissues: A Colon Biopsy (RECTAL POLYP) Procedures: Tomas ROSA/Benjie L4 Patient: Richard Dumont [id number] (Continued) Signed (signature on file) Qasim Graham MD 05/01/23 1041 [facility] Panel InformationOrdered By: Umesh Fitzgerald on 57-61-3379Iuyhgys Glucose CommentGlu2: cleaned [facility] Medical CenterMR SHOULDER LEFT WO IV CONTRASTon 52-65-3981YJ SHOULDER LEFT WO IV CONTRASTEXAMINATION: MR SHOULDER LEFT WO IV CONTRAST HISTORY: Left shoulder pain with decreased range of motion. TECHNIQUE: Routine non-contrast MRI of the shoulder, left side COMPARISON: Radiographs 08/07/2022. RESULT: Some limitations from motion. Rotator Cuff Tendons: Full-thickness tearing involving essentially entire distal supraspinatus withmedial retraction of the torn fibers to near the acromion, with underlying tendinosis. Mild to moderate tendinosis involving infraspinatus and subscapularis, without evidence for tear within limits of motion. Teres minor appears intact. Long Head Biceps Tendon: Intra-articular portion not well visualized, could be artifactual secondary to motion versus tear. Muscle: Mild volume loss of supraspinatus. Labrum: Diffuse fraying/tearing. Bones and Marrow: No evidence of fracture or bone marrow replacing process. Glenohumeral Joint: Osteophytes without distinct measurable chondral defect within limits of motion. Small joint effusion. Acromioclavicular Joint: Mild to moderate degenerative changes. Undersurface osteophytes. Other: Fluid extending into the subacromial subdeltoid bursa. IMPRESSION: Full-thickness tearing involving essentially entire distal supraspinatus, with mild associated volume loss. ELECTRONICALLY SIGNED BY: Kenton VasquesSt. Mary'S Medical Center, Ironton CampusNo Panel Informationon 91-39-6992NayviloFELICITY Steve 03/25/2023 1:41 PM L Inj/Asp: L subacromial bursa on 03/25/2023 1:40 PM Indications: pain Details: 21 G needle, posterior approach Medications: 40 mg methylPREDNISolone acetate 40 MG/ML; 1 mL bupivacaine PF 0.5 % Outcome: tolerated well, no immediate complications Utilizing aseptic technique with universal precautions . Pt given injection Left Shoulder SA space ( code 61133 LT) Pt noted improved pain post injection Procedure, treatment alternatives, risks and benefits explained, specific risks discussed. Consent was given by the patient. Patient was prepped and draped in the usual sterile fashion. [facility] Hospital - GreensboroFELICITY Steve 03/25/2023 1:41 PM M Inj/Asp: L acromioclavicular on 03/25/2023 1:40 PM Indications: pain Details: 21 G needle, anterolateral approach Medications: 0.5 mL bupivacaine PF 0.5 %; 40 mg methylPREDNISolone acetate 40 MG/ML Outcome: tolerated well, no immediate complications Given with 0.5ml of 0.5% bupivicaine Procedure, treatment alternatives, risks and benefits explained, specific risks discussed. Consent was given by the patient. Patient was prepped and draped in the usual sterile fashion. [facility] testosterone measurement by LC-MS/MSon 65-41-4726Dnilhhxteiqg Free [Mass/Vol]5.8 pg/mL7.2-24.0Newark HospitalComment on above:Performed at: [facility] Lab[address] [id number] Director: Yan Miramontes PhD, Phone: [phone] at: [facility] Lab[address] [id number] Director: Alberto Rock MD, Phone: [phone] Panel Information on 18-93-2162Shzbgbghsuwt Tgbgj340 ng/nS138-810VvgcfzcfbNewark Hospital Comment on above:Adult male reference interval is based on a population ofhealthy nonobese males (BMI <30) between 19 and 39 yearsold. Jimmie et.al. JCEM 2017,102;0116-4386. PMID:12004963.A1C HEMOGLOBINon 61-49-9792MgW2x (Bld) [Mass fraction]10.4 %[employer] Other HbA1c (Bld) [Mass fraction]on 58-72-4284K4C HEMOGLOBIN [employer] [facility] [employer] Other Laboratory - Microbiology and Antimicrobial susceptibilityOrdered By: Tiffanie Lopez on 38-54-0773DBUX-CoV-2 (COVID-19) RNA BEBETO+probe Ql (Resp)Not detected(Not Detected )[facility] Work Phone: Comment on above:Note: This nucleic acid amplification test was developed and itsperformance characteristics determined by [facility]. Nucleic acid amplification tests include RT-PCR and TMA. This test has not been FDA cleared orapproved. This test has been authorized by FDA under anEmergency Use Authorization (EUA). This test is onlyauthorized for the duration of time the declaration thatcircumstances exist justifying the authorization of theemergency use of in vitro diagnostic tests for detection wzLQDB-DyA-7 virus and/or diagnosis of COVID-19 infectionunder section 564(b)(1) of the Act, 21 U.S.C. 360bbb-3(b)(1), unless the authorization is terminated or revokedsooner.When diagnostic testing is negative, the possibility of afalse negative result should be considered in the contextof a patient'srecent exposures and the presence ofclinical signs and symptoms consistent with COVID- 19. Anindividual without symptoms of COVID-19 and who is notshedding SARS-CoV-2 virus would expect to have a negative(not detected) result in this assay. SARS-CoV-2 (COVID-19) RNA BEBETO+probe Ql (Unsp spec)PerformedHealth [facility] Work Phone: Lipid Profileon 91-15-4629Krxdrgxqkpj [Mass/Vol]167 mg/dLNormal<200C[facility] Va Medical CenterComment on above:Result Comment: Cholesterol Guidelines: <200 Desirable 200-240 Borderline >240 UndesirablePerformed By: #### LIPR #### [address] [place] [address] Tourist Camp Attendant: Farzad Alvarez MD #### CP, CDP, TSHX #### [facility] [address] [place] [address] Tourist Camp Attendant: GUILLERMINA Murrayholesterol in HDL [Mass/Vol]45 mg/dLNormal>40 [facility] Va Medical CenterComcorewell health reed city hospital on above:Result Comment: HDL Guidelines: <40 Undesirable 40-59 Borderline >59 DesirablePerformed By: #### LIPR #### [address] [place], [place] [id number] Tourist Camp Attendant: Farzad Alvarez MD #### CP, CDP, TSHX #### [facility] [address] [place] [address] Dr. [place], [place] [phone] Tourist Camp Attendant: GUILLERMINA Murrayholesterol in LDL [Mass/Vol]96 mg/dLNormal0-130 [facility] CenterComcorewell health [facility] on above:Result Comment: LDL Guidelines: <100 Desirable 100-129 Near to/above Desirable 130-159 Borderline >159 Undesirable Direct (measured) LDL and calculated LDL are not interchangeable tests.Performed By: #### LIPR #### [facility] [employer] [address] [place] [address] Tourist Camp Attendant: Farzad Alvarez MD #### SUE, CDP, TSHX #### [address] [place] [phone] Tourist Camp Attendant: Roro Murray.total/Cholesterol in HDL [Mass ratio] 3.7 {ratio}Normal<5[facility] CenterComment on above:Performed By: #### LIPR #### [address] [address] Tourist Camp Attendant: Farzad Alvarez MD #### SUE, JES, TSHX #### [address] [place], [place] [phone] Tourist Camp Attendant: Qasim Weiner MDTriglyceride [Mass/Vol]130 mg/dLNormal<150C[facility] CenterComment on above:Result Comment: Triglyceride Guidelines: <150 Desirable 150-199 Borderline 200-499 High >499 Very high Based on AHA Guidelines for fasting triglyceride, November 2011.Performed By: #### LIPR #### [facility] [employer] [facility] [place] [address] Tourist Camp Attendant: Farzad Alvarez MD #### CP, CDP, TSHX #### [address] [place], [place] [phone] Tourist Camp Attendant: GUILLERMINA MurrayBC Auto DifferentialOrdered By: Noreen Champion on [id number] Eos #0.11[facility] HospitalS[facility] Biosc[facility] Phone: absolute Immature Granulocyte<0.03[facility] Phone: absolute Lymph #1.55[facility] Phone: absolute Milam #0.74[facility] [email or web address] Phone: basophils (Bld) [#/Vol]0.05 10*3/uLDelaware County HospitalSARcode Bioscience Phone: basophils/100 WBC (Bld)1 %0 - 2 %[employer] Phone: differential TypeNOT REPORTEDDelaware County HospitalSARcode Bioscience Phone: eosinophils/100 WBC (Bld)1 %1 - 4 %[employer] Phone: Hematocrit (Bld) [Volume fraction]45.1 %40.7 - 50.3 % [employer] Phone: Hemoglobin.gastrointestinal spec 1 Ql (Stl)15.8 g/dL 13.0 - 17.0 g/dLDelaware County HospitalSARcode Bioscience Phone: Immature granulocytes/100 WBC (Bld)0 %0[facility] Phone: Interpretation and review of laboratory results AbnormalDelaware County HospitalSARcode Bioscience Phone: lymphocytes/100 WBC (Bld)20 %Low24 - 43 %[employer] Phone: MCH (RBC) [Entitic mass]30.6 pg25.2 - 33.5 pgDelaware County HospitalSARcode Bioscience Phone: MCHC (RBC) [Mass/Vol]35.0 g/oNRahh98.4 - 34.8 g/dL [employer] Phone: MCV (RBC) [Entitic vol]87.4 fL82.6 - 102.9 fLDiino Systems Phone: [phone]/100 WBC (Bld)10 %3 - 12 %[employer] Phone: NRBC Automated0.00.0 per 100 WBCDelaware County HospitalSARcode Bioscience Phone: Platelet distribution width (Bld) [Ratio]12.9 %11.8 - 14.4 %[employer] Phone: [phone] EstimateNOT REPORTEDDelaware County HospitalSARcode Bioscience Phone: [phone] mean volume (Bld) [Entitic vol]10.1 fL8.1 - 13.5 DCDiino Systems Phone: [phone] (Bld) [#/Vol]226 10*3/edo Phone: [phone] (Bld) [#/Vol]5.16 10*6/uL4.21 - 5.77 m/Carticept MedicalDelaware County HospitalSARcode Bioscience Phone: [phone] (Bld) [#/Vol]NOT REPORTEDDelaware County HospitalSARcode Bioscience Phone: Segmented neutrophils/100 WBC (Bld)68 %High36 - 65 % [employer] Phone: Segs Absolute5.17[facility] HospitalS[facility] Phone: [phone] (Bld) [#/Vol]7.6 10*3/TahomaSARcode Biosc[employer] Phone: [phone] (Bld) [#/Vol]NOT REPORTEDDelaware County HospitalSARcode Bioscience Phone: [facility] HospitalCareers360 Work Phone: CBC with Diffon [id number]. Basophil0.05 k/uLNormal 0.00-0.20[facility] CenterComment on above:Performed By: #### LIPR #### [facility] [address] [place] [address] Tourist Camp Attendant: Farzad Alvarez MD #### CP, CDP, TSHX #### [address] [place] [phone] Tourist Camp Attendant: Grisel Murray.Imm.Granulocyte<0.67Pkssbl9.00-0.30[facility] Medical CenterComment on above:Performed By: #### LIPR #### [address] [address] Tourist Camp Attendant: Farzad Alvarez MD #### CP, CDP, TSHX #### [address] [place] 2026983 Tourist Camp Attendant: Grisel Murray.Neutrophil (Seg)5.17 k/uLNormal1.50-8.10[facility] Medical CenterComment on above:Performed By: #### LIPR #### [address] [address] Tourist Camp Attendant: Farzad Alvarez MD #### CP, CDP, TSHX #### [address] [place] 2026983 Tourist Camp Attendant: Qasim Weiner MDBasophils/100 WBC (Bld)1 %Normal0-2Mer[facility] Greenwich HospitalComment on above:Performed By: #### LIPR #### [address] [address] Tourist Camp Attendant: Farzad Alvarez MD #### CP, CDP, TSHX #### [address] [place] 2026983 Tourist Camp Attendant: Qasim Weiner MDEosinophils (Bld) [#/Vol]0.11 10*3/uLNormal 0.00-0.44[facility] CenterComment on above:Performed By: #### LIPR #### [address] [id number] Tourist Camp Attendant: Farzad Alvarez MD #### CP, CDP, TSHX #### [address] [place] 2026983 Tourist Camp Attendant: Qasim Weiner MDEosinophils/100 WBC (Bld)1 %Normal1-4[facility] CenterComment on above:Performed By: #### LIPR #### [address] [address] Tourist Camp Attendant: Farzad Alvarez MD #### CP, CDP, TSHX #### [address] [place] 2026983 Tourist Camp Attendant: Qasim Weiner MDErythrocyte distribution width (RBC) [Ratio]12.9 % Virues69.8-14.4[facility] CenterComment on above:Performed By: #### LIPR #### [address] [address] Tourist Camp Attendant: Farzad Alvarez MD #### CP, CDP, TSHX #### [address] [place] 2026983 Tourist Camp Attendant: Qasim Weiner MDHematocrit (Bld) [Volume fraction]45.1 %Normal 40.7-50.3Mmercy health kings mills hospitaly Greenwich HospitalComment on above:Performed By: #### LIPR #### [address] [address] Tourist Camp Attendant: Farzad Alvarez MD #### CP, CDP, TSHX #### [address] [place] [address] Tourist Camp Attendant: Qasim Weiner MDHemoglobin (Bld) [Mass/Vol]15.8 g/dLNormal 13.0-17.0[facility] CenterComment on above:Performed By: #### LIPR #### [address] [address] Tourist Camp Attendant: Farzad Alvarez MD #### CP, CDP, TSHX #### [address] [place] 2026983 Tourist Camp Attendant: Qasim Weiner MDImmature granulocytes/100 WBC (Bld)0 %Shtlun9IreqaCincinnati Va Medical CenterComment on above:Performed By: #### LIPR #### [address] [address] Tourist Camp Attendant: Farzda Alvarez MD #### CP, CDP, TSHX #### [address] [place] [address] Tourist Camp Attendant: Qasim Weiner MDLymphocytes (Bld) [#/Vol]1.55 10*3/uLNormal 1.10-3.70[facility] CenterComment on above:Performed By: #### LIPR #### [address] [address] Tourist Camp Attendant: Farzad Alvarez MD #### CP, CDP, TSHX #### [address] [place] [address] Tourist Camp Attendant: Qasim Weiner MDLymphocytes/100 WBC (Bld)20 %Sng52-77LplyeCincinnati Va Medical CenterComment on above:Performed By: #### LIPR #### [address] [address] Tourist Camp Attendant: Farzad Alvarez MD #### CP, CDP, TSHX #### [address] [place] 2026916 ( Tourist Camp Attendant: MONSERRAT MurrayCH (RBC) [Entitic mass]30.6 vsJxtnwf74.2-33.5 [facility] CenterComment on above:Performed By: #### LIPR #### [address] [place] [address] Tourist Camp Attendant: Farzad Alvarez MD #### CP, CDP, TSHX #### [address] [place], [place] 7943883 Tourist Camp Attendant: MONSERRAT MurrayCHC (RBC) [Mass/Vol]35.0 g/wGEwfv32.4-34.8[facility] CenterComment on above:Performed By: #### LIPR #### [address] [address] Tourist Camp Attendant: Farzad Alvarez MD #### SUE, CDP, TSHX #### [address] [place], [place] 0558883 Tourist Camp Attendant: MONSERRAT MurrayCV (RBC) [Entitic vol]87.4 hPBzrbps92.6-102.9 [facility] CenterComment on above:Performed By: #### LIPR #### [address] [address] Tourist Camp Attendant: Farzad Alvarez MD #### JES ROGERS, TSHX #### [address] [place] [phone] Tourist Camp Attendant: Qasim Weiner MDMonocytes (Bld) [#/Vol]0.74 10*3/uLNormal0.10-1.20 [facility] CenterComment on above:Performed By: #### LIPR #### [address] [address] Tourist Camp Attendant: Farzad Alvarez MD #### SUE, CDP, TSHX #### [address] [place] [address] Tourist Camp Attendant: Qasim Weiner MDMonocytes/100 WBC (Bld)10 %Normal3-12[facility] Medical CenterComment on above:Performed By: #### LIPR #### [address] [place] [address] Tourist Camp Attendant: Farzad Alvarez MD #### CP, CDP, TSHX #### [address] [place], [place] [phone] Tourist Camp Attendant: Qasim Weiner MDNeutrophil (Seg)68 %Aggg60-02BxekpCincinnati Va Medical Center Comment on above:Performed By: #### LIPR #### [address] [address] Tourist Camp Attendant: Farzad Alvarez MD #### CP, CDP, TSHX #### [address] [place], [place] 1876483 Tourist Camp Attendant: Qasim Weiner MDNRBC Automated0.0 per 100 WBCNormal0.0[facility] CenterComment on above:Performed By: #### LIPR #### [address] [address] Tourist Camp Attendant: Farzad Alvarez MD #### CP, CDP, TSHX #### [address] [place], [place] 8773583 Tourist Camp Attendant: Aida Murray mean volume (Bld) [Entitic vol]10.1 fL Normal8.1-13.5C[facility] Medical CenterComment on above:Performed By: #### LIPR #### [address] [address] Tourist Camp Attendant: Farzad Alvarez MD #### CP, CDP, TSHX #### [address] [place], [place] 1172283 Tourist Camp Attendant: Carlo Murray (Bld) [#/Vol]226 10*3/cJZttpmk631-970 [facility] CenterComment on above:Performed By: #### LIPR #### [address] [place] [address] Tourist Camp Attendant: Farzad Alvarez MD #### CP, CDP, TSHX #### [address] [place] [address] Tourist Camp Attendant: LUIS Murray ([facility]) [#/Vol]5.16 10*6/uLNormal4.21-5.77Mercy Rehrersburg HospitalComment on above:Performed By: #### LIPR #### [address] [address] Tourist Camp Attendant: Farzad Alvarez MD #### CP, CDP, TSHX #### [address] [place] [address] Tourist Camp Attendant: Qasim Weiner MDBATH [facility] ([facility]) [#/Vol]7.6 10*3/uLNormal3.5-11.3Mer[facility] Rehrersburg HospitalComment on above:Performed By: #### LIPR #### [address] [address] Tourist Camp Attendant: Farzad Alvarez MD #### CP, CDP, TSHX #### [address] Patel, [place] 053[address]83 Tourist Camp Attendant: Yuniel Murray PerformedNOT REPORTEDNormalMercy Rehrersburg HospitalComment on above:Performed By: #### LIPR #### [address] [address] Tourist Camp Attendant: Farzad Alvarez MD #### CP, CDP, TSHX #### [address] [place], [place] 1283483 Tourist Camp Attendant: Aida Murray EstimateNOT REPORTEDNormalDelaware County Hospitalcy Rehrersburg HospitalComment on above:Performed By: #### LIPR #### [address] [address] Tourist Camp Attendant: Farzad Alvarez MD #### CP, CDP, TSHX #### [address] [place] [address] Tourist Camp Attendant: LUIS Murray morphology finding Nom (Bld)NOT REPORTEDNormal [facility] Medical CenterComment on above:Performed By: #### LIPR #### [address] [place] [address] Tourist Camp Attendant: Farzad Alvarez MD #### CP, CDP, TSHX #### [address] [place], [place] 0199783 Tourist Camp Attendant: Qasim Weiner MDDAGO MorphologyNOT REPORTEDNormalPromedica Bay Park Hospital HospitalComment on above:Performed By: #### LIPR #### [address] [address] Tourist Camp Attendant: Farzad Alvarez MD #### CP, CDP, TSHX #### [address] [place] [address] Tourist Camp Attendant: GUILLERMINA Murraymountainstar healthcare Metabolic Profon 11-15-0982URR [Catalytic activity/Vol]17 U/LNormal<40[facility] Medical CenterComment on above:Performed By: #### LIPR #### [address] [address] Tourist Camp Attendant: Farzad Alvarez MD #### CP, CDP, TSHX #### [address] [place] [address] Tourist Camp Attendant: Qasim Weiner MD(cont.)[facility] Rita's Medical CenterComment on above:Result Comment: Average GFR for 40-49 years old: 99 mL/min/1.73sq m Chronic Kidney Disease: <60 mL/min/1.73sq m Kidney failure: <15 mL/min/1.73sq m eGFR calculated using average adult body mass. Additional eGFR calculator available at: http://www.[employer].com/multiple_crcl_2012.htmPerformed By: #### LIPR #### [address] [address] Tourist Camp Attendant: Farzad Alvarez MD #### CP, CDP, TSHX #### [address] [place] [phone] Tourist Camp Attendant: Qasim Weiner MDAlbumin [Mass/Vol]3.9 g/dLNormal3.5-5.2MercThe Hospital of Central ConnecticutComment on above:Performed By: #### LIPR #### [address] [address] Tourist Camp Attendant: Farzad Alvarez MD #### CP, CDP, TSHX #### [address] [place] [address] Tourist Camp Attendant: Qasim Weiner MDAlbumin/Glob Ratio1.9Fayykt0.0-2.5[facility] Medical CenterComment on above:Performed By: #### LIPR #### [address] [address] Tourist Camp Attendant: Farzad Alvarez MD #### CP, CDP, TSHX #### [address] [place] 2026983 Tourist Camp Attendant: Gelacio Murrayline Phos65 U/JBcrydo24-928OgjrlCincinnati Va Medical CenterComment on above:Performed By: #### LIPR #### [address] [address] Tourist Camp Attendant: Farzad Alvarez MD #### CP, CDP, TSHX #### [address] [place] 2026983 Tourist Camp Attendant: Qasim Weiner MDALT [Catalytic activity/Vol]19 U/LNormal5-41[facility] Medical CenterComment on above:Performed By: #### LIPR #### [facility] [address] [place] [address] Tourist Camp Attendant: Farzad Alvarez MD #### CP, CDP, TSHX #### [facility] [address] [place], [place] 5156383 Tourist Camp Attendant: Qasim Weiner MDAnidenise gap [Moles/Vol]10 mmol/LNormal9-17[facility] Medical CenterComment on above:Performed By: #### LIPR #### [facility] [address] [place] [address] Tourist Camp Attendant: Farzad Alvarez MD #### CP, CDP, TSHX #### [facility] [address] [place] [address] [place] [address] Tourist Camp Attendant: Qasim Weiner MDBilirubin [Mass/Vol]1.00 mg/dLNormal0.3-1.2MSelect Medical Cleveland Clinic Rehabilitation Hospital, Edwin ShawComment on above:Performed By: #### LIPR #### [facility] [address] [place] [address] Tourist Camp Attendant: Farzad Alvarez MD #### CP, CDP, TSHX #### [address] [place], [place] 5130583 Tourist Camp Attendant: Qasim Weiner MDBUN/CRE Qhvqm90Ohka4-76SnfznCincinnati Va Medical Center Comment on above:Performed By: #### LIPR #### [facility] [address] [place] [address] Tourist Camp Attendant: Farzad Alvarez MD #### CP, CDP, TSHX #### [address] [place] [address] Tourist Camp Attendant: GUILLERMINA Murrayalcium [Mass/Vol]9.3 mg/dLNormal8.6-10.4[facility] HospitalComment on above:Performed By: #### LIPR #### [address] [address] Tourist Camp Attendant: Farzad Alvarez MD #### CP, CDP, TSHX #### [address] [place], [place] 7243083 Tourist Camp Attendant: GUILLERMINA Murrayhloride [Moles/Vol]101 mmol/CVefdlf28-192RqwewCincinnati Va Medical CenterComment on above:Performed By: #### LIPR #### [address] [address] Tourist Camp Attendant: Farzad Alvarez MD #### SUE, CDP, TSHX #### [address] [place], [place] 3214783 Tourist Camp Attendant: GUILLERMINA MurrayO2 [Moles/Vol]29 mmol/RHfpoav57-16XqwmjCincinnati Va Medical CenterComment on above:Performed By: #### LIPR #### [address] [address] Tourist Camp Attendant: Farzad Alvarez MD #### SUE, CDP, TSHX #### [address] [place], [place] 1002183 Tourist Camp Attendant: GUILLERMINA Murrayreatinine [Mass/Vol]0.47 mg/dLLow0.70-1.20[facility] CenterComment on above:Performed By: #### LIPR #### [address] [address] Tourist Camp Attendant: Farzad Alvarez MD #### SUE, CDP, TSHX #### [address] [place], [place] 0314583 Tourist Camp Attendant: Qasim Weiner MDGFR, Amer>60Normal>60[facility] Comment on above:Performed By: #### LIPR #### [address] [place] [address] Tourist Camp Attendant: Farzad Alvarez MD #### CP, CDP, TSHX #### [address] [place] [address] Tourist Camp Attendant: Qasim Weiner MDGFR,non Amer>60Normal>60Mer[facility] Rehrersburg HospitalComment on above:Performed By: #### LIPR #### [address] [address] Tourist Camp Attendant: Farzad Alvarez MD #### CP, CDP, TSHX #### [address] [place] 2026983 Tourist Camp Attendant: Qasim Weiner MDGlucose [Mass/Vol]268 mg/yOIiou03-24Bdots Rehrersburg HospitalComment on above:Performed By: #### LIPR #### [address] [address] Tourist Camp Attendant: Farzad Alvarez MD #### CP, CDP, TSHX #### [address] [place] 2026983 Tourist Camp Attendant: Qasim Weiner MDPotassium [Moles/Vol]3.8 mmol/LNormal3.7-5.3Mer[facility]hrersburg HospitalComment on above:Performed By: #### LIPR #### [address] [address] Tourist Camp Attendant: Farzad Alvarez MD #### CP, CDP, TSHX #### [address] [place] [address] Tourist Camp Attendant: Qasim Weiner MDProtein [Mass/Vol]6.8 g/dLNormal6.4-8.3Mer[facility] Rehrersburg HospitalComment on above:Performed By: #### LIPR #### [address] 7366708 Tourist Camp Attendant: Farzad Alvarez MD #### CP, CDP, TSHX #### [address] [place], [place] 7483983 Tourist Camp Attendant: ANNETTE Murrayodium [Moles/Vol]140 mmol/XTrzooz380-524DidbiCincinnati Va Medical CenterComment on above:Performed By: #### LIPR #### [address] [address] Tourist Camp Attendant: Farzad Alvarez MD #### CP, CDP, TSHX #### [address] [place], [place] 7303983 Tourist Camp Attendant: ANNETTE Murraytaging:NormalCincinnati Va Medical CenterComment on above:Result Comment: Stage 1: Some kidney damage normal GFR Stage 2: Mild kidney damage GFR 60-89 Stage 3: Moderate kidney damage GFR 30-59 Stage 4: Severe kidney damage GFR 15-29 Stage 5: Severe kidney damage GFR <15 ESRD - chronic treatment by dialysis or transplantPerformed By: #### LIPR #### [address] [address] Tourist Camp Attendant: Farzad Alvarez MD #### CP, CDP, TSHX #### [address] [place], [place] 5175583 Tourist Camp Attendant: Qasim Weiner MDUrea nitrogen [Mass/Vol]10 mg/dLNormal6-20[facility] CenterComment on above:Performed By: #### LIPR #### [facility] [address] [place] [address] Tourist Camp Attendant: Farzad Alvarez MD #### CP, CDP, TSHX #### [address] [place] [address] Tourist Camp Attendant: GUILLERMINA Murrayomprehensive Metabolic PanelOrdered By: Noreen Champion on 43-56-7085Fdjoduc [Mass/Vol]3.9 g/dL3.5 - 5.2 g/dLDelaware County HospitalSARcode Bioscience Phone: albumin/Globulin [Mass ratio]1.3 {ratio}[employer] Phone: aLP (Bld) [Catalytic activity/Vol]65 U/L40 - 129 U/L [facility] CenterKIHEITAI Phone: HLT [Catalytic activity/Vol]19 U/L5 - 41 U/LMmercy health kings mills hospitalKIHEITAI Phone: anion gap [Moles/Vol]10 mmol/L9 - 17 mmol/LMmercy health kings mills hospitaly [email or web address] Phone: aST [Catalytic activity/Vol]17 U/L<40[facility] HospitalSAR[facility] Bioscience Phone: bilirubin [Mass/Vol]1.00 mg/dL0.3 - 1.2 mg/dLDelaware County HospitalSARcode Bioscience Phone: calcium [Mass/Vol]9.3 mg/dL8.6 - 10.4 mg/dLDelaware County HospitalSARcode Bioscience Phone: chloride [Moles/Vol]101 mmol/L98 - 107 mmol/LMholzer hospital [email or web address] Phone: cO2 [Moles/Vol]29 mmol/L20 - 31 mmol/LMholzer hospital [email or web address] Phone: creatinine [Mass/Vol]0.47 mg/dLLow0.70 - 1.20 mg/dL [facility] CenterKIHEITAI Phone: Free PSA/Total PSA [Mass fraction]6.8 g/dL6.4 - 8.3 g/dLDelaware County HospitalSARcode Bioscience Phone: GFR >60>60 mL/minDelaware County HospitalSARcode Bioscience Phone: GFR Non->60>60 mL/minDelaware County HospitalSARcode Bioscience Phone: Glucose [Mass/Vol]268 mg/eRFdzz78 - 99 mg/dLDelaware County HospitalSARcode Bioscience Phone: Interpretation and review of laboratory results AbnormalOhiohealth [facility] [email or web address] Phone: potassium [Moles/Vol]3.8 mmol/L3.7 - 5.3 mmol/LMholzer hospital [email or web address] Phone: sodium [Moles/Vol]140 mmol/L135 - 144 mmol/LMmercy health kings mills hospitaly [email or web address] Phone: Urea nitrogen (BldV) [Mass/Vol]10 mg/dL6 - 20 mg/dL [facility] [email or web address] Phone: Urea nitrogen/Creatinine (Bld) [Mass ratio]21HighDelaware County HospitalSARcode Bioscience Phone: [facility] HospitalSAR[facility] Biosc[facility] Phone: laboratory - Chemistry and Chemistry - challenge Ordered By: Noreen Champion on 81-59-5032DXZ/1.73 sq M.predicted MDRD (S/P/Bld) [Vol rate/Area][facility] [email or web address] Phone: comment on above:Average GFR for 40-49 years old: 99 mL/min/1.73sq m Chronic Kidney Disease: <60 mL/min/1.73sq m Kidney failure: <15 mL/min/1.73sq m eGFR calculated using average adult body mass. Additional eGFR calculator available at: http://www.[employer].TELiBrahma/multiple_crcl_2012.htm Stage 1: Some kidney damage normal GFR Stage 2: Mild kidney damage GFR 60-89 Stage 3: Moderate kidney damage GFR 30-59 Stage 4: Severe kidney damage GFR 15-29 Stage 5: Severe kidney damage GFR <15 ESRD - chronic treatment by dialysis or transplant Albumin [Mass/Vol]3.9 g/dL(3.5-5.2 )[facility] [employer] [facility] Work Phone: Comment on above:Note: Responsible Observer: CET TWO AUTOFILE (9666)ALT [Catalytic activity/Vol]19 U/L(5-41 )[place] [employer] [facility] Work Phone: Comment on above:Note: Responsible Observer: CET TWO AUTOFILE (3006)Anion gap [Moles/Vol]10 mmol/L(9-17 )[facility] Work Phone: Comment on above:Note: Responsible Observer: CET TWO AUTOFILE (3006)AST [Catalytic activity/Vol]17 U/L(<40 )[facility] Work Phone: Comfmic on above:Note: Responsible Observer: CET TWO AUTOFILE (3006)Bilirubin [Mass/Vol]1.00 mg/dL(0.3-1.2 )[facility] Work Phone: Comment on above:Note: Responsible Observer: CET TWO AUTOFILE (3006)Calcium [Mass/Vol]9.3 mg/dL(8.6-10.4 )[facility] Work Phone: Comment on above:Note: Responsible Observer: CET TWO AUTOFILE (3006)Chloride [Moles/Vol]101 mmol/L(98-107 )[facility] Work Phone: Comment on above:Note: Responsible Observer: CET TWO AUTOFILE (3006)Cholesterol [Mass/Vol]167 mg/dL(<200 )[facility] Work Phone: Comment on above:Note: Cholesterol Guidelines:<200 Pkhzegzqo371-375 Borderline>240 UndesirableResponsible Observer: CCEV AUTOFILE (3002)Cholesterol.total/Cholesterol in HDL [Mass ratio]3.7 {ratio}(<5 )[facility] Work Phone: Comment on above:Note: Responsible Observer: CCEV AUTOFILE (3002)CO2 [Moles/Vol]29 mmol/L(20-31 )[facility] Work Phone: Comment on above:Note: Responsible Observer: CET TWO AUTOFILE (3006)Creatinine [Mass/Vol]0.47 mg/dLLow(0.70-1.20 )[facility] Work Phone: Comment on above:Note: Responsible Observer: CET TWO AUTOFILE (3006)Glucose [Mass/Vol]268 mg/dLHigh(70-99 )[facility] Work Phone: Comment on above:Note: Responsible Observer: CET TWO AUTOFILE (3006)Magnesium [Mass/Vol]45 mg/dL(>40 )[facility] Work Phone: Comment on above:Note: HDL Guidelines:<40 Mkcbymxdifw32-69 Borderline>59 DesirableResponsible Observer: CCEV AUTOFILE (3002)Magnesium [Mass/Vol]96 mg/dL(0-130 )[facility] Work Phone: Comment on above:Note: LDL Guidelines:<100 Uehwozevo668-267 Near to/above Eylzxawto311-750 Borderline>159 UndesirableDirect (measured) LDL and calculated LDL are not interchangeable tests.Responsible Observer: CCEV AUTOFILE (3002)Potassium [Moles/Vol]3.8 mmol/L(3.7-5.3 )[facility] Work Phone: Comment on above:Note: Responsible Observer: CET TWO AUTOFILE (3006)Protein [Mass/Vol]6.8 g/dL(6.4-8.3 )[facility] Work Phone: Comment on above:Note: Responsible Observer: CET TWO AUTOFILE (3006)Sodium [Moles/Vol]140 mmol/L(135-144 )[facility] Work Phone: Comment on above:Note: Responsible Observer: CET TWO AUTOFILE (3006)Triglyceride [Mass/Vol]130 mg/dL(<150 )[facility] Work Phone: Comment on above:Note: Triglyceride Guidelines:<150 Likekqfvb827-647 Nutdopirip812-904 High>499 Very highBasedon AHA Guidelines for fasting triglyceride, November 2011.Responsible Observer: CCEV AUTOFILE (3002) Urea nitrogen [Mass/Vol]10 mg/dL(6-20 )[facility] Work Phone: Comment on above:Note: Responsible Observer: CET TWO AUTOFILE (3006)Laboratory - Hematology and Cell countsOrdered By: Noreen Champion on [id number]/100 WBC (Bld)1 %(0-2 )[facility] Work Phone: Comcbnm on above:Note: Responsible Observer: XNT AUTOFILE (3019)Eosinophils (Bld) [#/Vol]0.11 10*3/uL(0.00-0.44 )[facility] Work Phone: Comment on above:Note: Responsible Observer: XNT AUTOFILE (3019)Eosinophils/100 WBC (Bld)1 %(1-4 )[facility] Work Phone: Comment on above:Note: Responsible Observer: XNT AUTOFILE (3019)Erythrocyte distribution width (RBC) [Ratio]12.9 %(11.8-14.4 ) [facility] Work Phone: Comment on above:Note: Responsible Observer: XNT AUTOFILE (3019)Hematocrit (Bld) [Volume fraction]45.1 %(40.7-50.3 )[facility] Work Phone: Comment on above:Note: Responsible Observer: XNT AUTOFILE (3019)Hemoglobin (Bld) [Mass/Vol]15.8 g/dL(13.0-17.0 )[facility] Work Phone: Comment on above:Note: Responsible Observer: XNT AUTOFILE (3019)Immature granulocytes/100 WBC (Bld)0 %(0 )[facility] Work Phone: Comment on above:Note: Responsible Observer: XNT AUTOFILE (3019)Lymphocytes (Bld) [#/Vol]1.55 10*3/uL(1.10-3.70 )[facility] Work Phone: Comment on above:Note: Responsible Observer: XNT AUTOFILE (3018)Lymphocytes/100 WBC (Bld)20 %Low(24-43 )[facility] Work Phone: Comment on above:Note: Responsible Observer: XNT AUTOFILE (3018)MCH (RBC) [Entitic mass]30.6 pg(25.2-33.5 )[facility] Work Phone: Comment on above:Note: Responsible Observer: XNT AUTOFILE (3018)MCHC (RBC) [Mass/Vol]35.0 g/dLHigh(28.4-34.8 )[facility] Work Phone: Comment on above:Note: Responsible Observer: XNT AUTOFILE (3018)MCV (RBC) [Entitic vol]87.4 fL(82.6-102.9 )[facility] Work Phone: Comment on above:Note: Responsible Observer: XNT AUTOFILE (3018)Monocytes (Bld) [#/Vol]0.74 10*3/uL(0.10-1.20 )[facility] Work Phone: Comment on above:Note: Responsible Observer: XNT AUTOFILE (3018)Monocytes/100 WBC (Bld)10 %(3-12 )[facility] Work Phone: Comment on above:Note: Responsible Observer: XNT AUTOFILE (3018)Platelet mean volume (Bld) [Entitic vol]10.1 fL(8.1-13.5 )[facility] Work Phone: Comment on above:Note: Responsible Observer: XNT AUTOFILE (3018)Platelets (Bld) [#/Vol]226 10*3/uL(138-453 )[facility] Work Phone: Comment on above:Note: Responsible Observer: XNT AUTOFILE (3018)RBC (Bld) [#/Vol]5.16 10*6/uL(4.21-5.77 )[facility] Work Phone: Comment on above:Note: Responsible Observer: XNT AUTOFILE (8634)RBC morphology finding Nom (Bld)NOT REPORTEDFair[facility] Work Phone: Segmented neutrophils/100 WBC (Bld)68 %High(36-65 ) [facility] Work Phone: Comment on above:Note: Responsible Observer: XNT AUTOFILE (2001)WBC (Bld) [#/Vol]7.6 10*3/uL(3.5-11.3 )[facility] Work Phone: Comment on above:Note: Responsible Observer: XNT AUTOFILE (6093)Lipid PanelOrdered By: Noreen Champion on 20-78-6860Poutzgnbvzm [Mass/Vol]167 mg/dL<200[email or web address] Phone: comment on above: Cholesterol Guidelines: <200 Desirable 200-240 Borderline >240 Undesirable Cholesterol in HDL [Mass/Vol]45 mg/dL>40[email or web address] Phone: comment on above: HDL Guidelines: <40 Undesirable 40-59 Borderline >59 Desirable Cholesterol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 round, and reactive to light. Sclera: no appreciated abnormality ENT: Exam is negative for injury or acute deformity Neck: External neck: no acute changes, Trachea: is midline with no obvious abnormalities, ROM/movement: no acute changes, Meningeal signs: are not present. Cardiovascular: Rate: sinus tachycardia, Rhythm: regular, Pulses: no pulse deficits are appreciated, Heart sounds: normal, Edema: is not appreciated, JVD: is not appreciated. Respiratory: Exam negative for respiratory distress, Respirations: normal, Breath sounds: are normal, no acute changes, throughout. Abdomen / GI Exam: negative for guarding, pulsatile mass, rebound tenderness, tenderness, Inspection: abdomen appears normal, Bowel sounds: normal, active, Palpitation: abdomen is soft and non-tender, Indicators: George?s sign is negative, McBurney?s point is not-tender. Back: Exam negative for acute changes, CVA tenderness. Musculoskeletal/extremity: Extremities: all appear grossly normal, with no appreciated pain with palpation, Perfusion: the patient is warm, the extremity is warm. Sensation intact. DVT exam: no swelling no tenderness, Calves: are non-tender. Skin: Exam negative for cyanosis, any evidence of obvious injury, Appearance: appears normal. Neuro: Orientation: is normal, appropriate for stated age, no acute changes, Mentation: able to follow commands, cerebellar function: is grossly normal, no acute changes, Motor: strength is normal, strength is 5/5 in all extremities, Sensation: no obvious gross deficits. Psych: Depressed, suicidal ideations without plan Vitals & Measurements T: 37.1 ?C (Oral) RR: 18 BP: 172/103 SpO2: 91% Additional Vitals Peripheral Pulse Rate: 125 bpm High Procedure No qualifying data available. ASA Documentation Medical Decision Making Genaro Browning scribing for and in the presence of Dr. Cruz. Reexamination/Reevaluation Scribe Attestation: The information in this document, created by the medical dir for me, accurately reflects the services I personally performed and the decisions made by me. This report has been created using voice recognition software. It may contain minor errors which are inherent in voice recognition technology. Assessment/Plan This is a 48-year-old male who presented to the emergency department by police department for evaluation of suicidal ideations, on arrival to the emergency department patient was noted to be hemodynamically stable, was noted to be tachycardic, states that he took 4 melatonin's she usually takes at nighttime, poison control was contacted, laboratory studies were reassuring except for hyperglycemia, patient's takes oral hypoglycemics at home did not take it for today, patient has been depressed over the last couple weeks, he is in a new relationship, he had argument with an infection other and that is when he made the comment of harming himself however he does not have any plans, he does not h ave any thoughts of harming himself currently, prescreener came and evaluated the patient patient was safety contracted and will follow up outpatient, repeat glucose was in the 300s, patient does nothave evidence of diabetic ketoacidosis, patient was discharged in no acute distress The results of pertinent diagnostic studies and exam findings were discussed. The patient?s provisional diagnosis and plan of care were discussed with the patient and present family. The patient and/or present family expressed understanding of the diagnosis and plan. The nurse was instructed to provide written instructions and appropriate follow-up information. The patient understands their need and responsibility to obtain additional follow-up as instructed. The risks of medications administered and prescribed were discussed with the patient and family present. Patient was discharged in no acute distress and hemodynamically stable. 1. Depression Orders: Consult to Psychiatric Prescreener Discharge Patient EKG Problem List/Past Medical History Ongoing No qualifying data Historical No qualifying data Medications Home No active home medications Inpatient No active inpatient medications Prescriptions No active Prescriptions Allergies No Known Medication Allergies Social History Alcohol Current, Beer, 1-2 times per month Substance Abuse Denies All Tobacco Never (less than 100 in lifetime) Use:. Lab Results Automated Hematology LATEST RESULTS WBC 02/04/19 00:44 7.7 RBC 02/04/19 00:44 5.11 Hgb 02/04/19 00:44 16.0 Hct 02/04/19 00:44 45.7 MCV 02/04/19 00:44 89.5 MCH 02/04/19 00:44 31.3 MCHC 02/04/19 00:44 34.9 RDW 02/04/19 00:44 13.4 Platelet 02/04/19 00:44 190 Mean Platelet Volume 02/04/19 00:44 8.6 Neutro Auto 02/04/19 00:44 73.2 High Lymph Auto 02/04/19 00:44 16.4 Low Milam Auto 02/04/19 00:44 9.1 Eos Auto 02/04/19 00:44 0.6 Basophil Auto 02/04/19 00:44 0.7 Neutro Absolute 02/04/19 00:44 5.7 Lymph Absolute 02/04/19 00:44 1.3 Milam Absolute 02/04/19 00:44 0.7 Eos Absolute 02/04/19 00:44 0.0 Baso Absolute 02/04/19 00:44 0.1 UA Macroscopic LATEST RESULTS UA Source 02/04/19 00:44 Clean Catch UA Color 02/04/19 00:44 Straw UA Clarity 02/04/19 00:44 Clear UA Spec Grav 02/04/19 00:44 1.032 UA pH 02/04/19 00:44 5.0 UA Protein 02/04/19 00:44 Negative UA Glucose 02/04/19 00:44 >=500 Abnormal UA Bili 02/04/19 00:44 Negative UA Urobilinogen 02/04/19 00:44 0.2 UA Leukocyte Esterase 02/04/19 00:44 Negative UA Nitrite 02/04/19 00:44 Negative UA Ketones 02/04/19 00:44 Trace Abnormal UA Blood 02/04/19 00:44 Negative UA Microscopic LATEST RESULTS UA RBC Quant 02/04/19 00:44 0 UA WBC Quant 02/04/19 00:44 1 Diagnostic Results XRay No qualifying data available (XRay) Computerized Tomagraphy No qualifying data available (CT) Ultrasound No qualifying data available (Ultrasound) Magnetic Resonance Imaging No qualifying data available (MRI) Genaro Browning Electronically signed by Phyllis Cruz MD 02/04/2019 02:20 ESTNormalWayne Healthcare Main Campus Ethanolon 47-28-0697Uywggmh [Mass/Vol]mg/dLNormal<=9BAkron Children's HospitalComment on above:Result Comment: To convert mg/dL to g/dL, divide result by 1,000. Legal limit of intoxication is 80mg/dL (0.08 g/dL).Performed By: #### ALC #### [address] [address]ULY Glucose Randomon 14-19-4374Vosiimx [Mass/Vol]362 mg/dLHigh 78-110[facility] Healthcare [facility] CampusComment on above:Performed By: #### .Automated Diff #### [address] [address]Crbmuxkkouzh 00-44-7084Hhalrkqbmg Levl<4.0Low0.0-30.0[facility] Healthcare Main CampusComment on above:Performed By: #### KATH #### [address], [place] [address]KJ w Culture if Indon 59-55-8225Sgrid (U)StrawNormalWayne Healthcare Main CampusComment on above:Performed By: #### UCI #### [address], [place] [address]Zfdonjo (U) [Mass/Vol]mg/dLAbnormalNegNorwalk Memorial HospitalComment on above:Performed By: #### UCI #### [address], [place] [address]Rajcikr Ql (U)TraceAbnormalNegNorwalk Memorial HospitalComment on above:Performed By: #### UCI #### [address], [place] [address]CQ BloodNegativeNormalNegNorwalk Memorial Hospital Comment on above:Performed By: #### UCI #### [address], [place] [address]GJ ClarityClearNormFulton County Health CenterComment on above:Performed By: #### UCI #### [address], [place] [address]DP Leukocyte EsteraseNegativeNormalNegNorwalk Memorial HospitalComment on above:Performed By: #### UCI #### [address], [place] [address]JV NitriteNegativeNormalNegativeWayne Healthcare Main Campus Comment on above:Performed By: #### UCI #### [address], [place] [address]RG pH5.7Yfaeqj9.5 - 7.8BlanMercy Health St. Vincent Medical CenterComment on above:Performed By: #### UCI #### [address], [place] [address]OU ProteinNegativeNormalNegativeWayne Healthcare Main Campus Comment on above:Performed By: #### UCI #### [address] [address]MT SourceClean CatchNormalGenesis Hospital SystemComment on above:Performed By: #### UCI #### [address] [address]IS Spec Grav1.508Ovgmej6.003-1.035Genesis Hospital SystemComment on above:Performed By: #### UCI #### [address] [address]BX Urobilinogen0.2 mg/dLNormal0.2 - 1.0[facility] CampusComment on above:Performed By: #### UCI #### [address] [address]Evegctbkuluz Qn (U)NegativeNormalNegativeWayne Healthcare Main CampusComment on above:Performed By: #### UCI #### [address] [address]TKA Compon 11-38-7718Fswupjmpbg [Mass/Vol]37.6 mg/dLNormal [facility] CampusComment on above:Performed By: #### CD:[id number] #### [address] [address]Wr Amph ScrnNegativeNormalNEG = <1000Genesis Hospital SystemComment on above:Performed By: #### CD:[id number] #### [address] [address]Zt Yazmin ScrnNegativeNormalNEG = <200[facility] Hospital SystemComment on above:Performed By: #### CD:[id number] #### [address] [address]Jj Benzodia ScrnNegativeNormalNEG = <200[facility] Hospital SystemComment on above:Performed By: #### CD:[id number] #### [address] [address]Lf Cannab ScrnNegativeNormalNEG = <50[facility] Health SystemComment on above:Performed By: #### CD:[id number] #### [facility] [address] [facility] [facility], [place] [address]Fs Cocaine ScrnNegativeNormalNEG = <300[facility] CampusComment on above:Performed By: #### CD:[id number] #### [facility] [address] [facility], [place] [address]Ld Methadone ScnNegativeNormalNEG = <300[facility] CampusComment on above:Performed By: #### CD:[id number] #### [facility] [address] [facility], [place] [address]Uw Opiate ScrnNegativeNormalNEG = <300[facility] CampusComment on above:Performed By: #### CD:[id number] #### [address], [place] [address]Jn Oxy ScreenNegativeNormalNEG = <100[facility] CampusComment on above:Performed By: #### CD:[id number] #### [address], [place] [address]Jo Oxy Scrn Qnt4 ng/mLNormal<=99[facility] Comment on above:Performed By: #### CD:[id number] #### [address], [place] [address]Ea PCP ScrnNegativeNormalNEG = <25[facility] CampusComment on above:Performed By: #### CD:[id number] #### [address], [place] [address]GX pH5.7Lzeigw1.5 - 7.8BAkron Children's HospitalComment on above:Performed By: #### CD:[id number] #### [address], [place] [address]QV Spec Grav1.371Fywhmv2.003-1.035[facility] CampusComment on above:Performed By: #### CD:[id number] #### [address] [address] [place] [address] Vital Signs Date TimeVital SignValuePerforming CtqpokvisFjgqtgos38-79-0463 09:36-0500 Diastolic blood izbtiotv19 mm[Hg]KORINA [facility]03-03-2025 09:36-0500Mean blood zixyctyu529 mm[Hg]KORINA [facility]03-03-2025 09:36-0500Systolic blood smacntoj948 mm[Hg]KORINA [facility]03-03-2025 09:27-0500Blood Pressure LocationJENNIFER [facility]03-03-2025 09:27-0500Diastolic blood jgdlygwf195 mm[Hg]KORINA [facility]03-03-2025 09:27-0500Heart rate93 /minJENNIFER [facility]03-03-2025 09:27-0500Respiratory rate18 /minJENNIFER [facility]03-03-2025 09:27-0500Systolic blood awzpcobn631 mm[Hg]KORINA [facility]09-12-2024 08:31-0400Body hciojm727.9 cmMattkyle BLEVINS Work Phone: [facility] HospitalLwtotisjjf66-89-4265 08:31-0400Body mass index (BMI) [Ratio]38.38 kg/c0Jmndnxyjosiah BLEVINS Work Phone: [facility] HospitalEzstniynuf13-79-0356 08:31-0400Body bovzal415.37 kgMajosiah BLEVINS Work Phone: [facility] HospitalVvmjfwitbx10-40-1634 09:29-0400Diastolic blood mm[Hg]JENNI Galvanacher Work Phone: [phone]62[facility]03-20-2024 09:29-0400 Heart rate84 /minAPRReyes Galvanacher Work Phone: [phone]03-20-2024 09:29-0400 Respiratory rate18 /minAPRReyes Valdiviar Work Phone: [phone] [place], [place] [address]103-20-2024 09:29-0400 SaO2% (BldA) [Mass fraction]96 %JENNI Valdiviar Work Phone: [phone]03-20-2024 09:29-0400 Systolic blood fxlnzjua460 mm[Hg]JENNI Galvanacher Work Phone: [phone] [place], [place] 4574103-20-2024 08:59-0400 Inhaled oxygen flow rate5 L/minJENNI Galvanacher Work Phone: [phone] [place], [place] 4574103-20-2024 07:03-0400 Body uzmagz445.34 cmAPRReyes Galvanacher Work Phone: [phone]03-20-2024 07:03-0400 Body ketuowdjywl16.5 [degF]JENNI Valdiviar Work Phone: [phone])[address]03-20-2024 07:03-0400 Body yunczo077.83 kgAPRReyes Galvanacher Work Phone: [phone]02-12-2024 14:14-0500 Body anwhjp188.9 cmYo BLEVINS Work Phone: noAZ Ypovsskcti90-83-9746 14:14-0500Body mass index (BMI) [Ratio]38.38 kg/e6Waorwttjosiah Corrales PA Work Phone: noAZ Ejghzqcybc56-16-6736 14:14-0500Body .37 kgMattkyle Corrales PA Work Phone: noSaint [facility] HospitalLhljfpuytn65-73-7263 16:00-0500Body feajoo631.34 cmKorina Crews Other [employer] Other 02-05-2024 16:00-0500Body mass index (BMI) [Ratio] 39.47 kg/p0JbghxbbpKorina Crews Other [employer] Other 02-05-2024 16:00-0500Body aqlpqg298.37 kgKorina Crews Other [employer] Other [id number] 16:00-0500Diastolic blood decpkoaa07 mm[Hg] Korina Crews Other [employer] Other 02-05-2024 16:00-4481MbK7% (BldA) [Mass fraction]98 % Korina Crews Other [employer] Other 02-05-2024 16:00-0500Systolic blood rerjylbs605 mm[Hg] Korina Crews Other [employer] Other 11-10-2021 16:03-0500Diastolic blood oaiobhzi67 mm[Hg] Noreen Champion [facility] Work Phone: [facility] Work Phone: 1(578) 602-447911-10-2021 16:03-0500Systolic blood odcyaplp581 mm[Hg] Noreen Champion CNP Work Phone: [facility] Work Phone: 1(270) 747-859911-10-2021 15:48-0500Body okeiir206.8 Gabriel Champion CNP Work Phone: [facility] Work Phone: 1(138) 506-665411-10-2021 15:48-0500Body mass index (BMI) [Ratio]41.5 kg/u6Jqhpcjkelly Champion CNP Work Phone: [facility] Work Phone: 1(479) 690-598111-10-2021 15:48-0500Body surface area Derived from formula2.44 z7Wkqdbkkelly Champion CNP Work Phone: [facility] Work Phone: 1(408) 494-378811-10-2021 15:48-0500Body .4 [degF]Noreen Champion CNP Work Phone: [facility] Work Phone: 1([phone]) 475-114311-10-2021 15:48-0500Body onfwbx618.18 kgCakelly Champion CNP Work Phone: [facility] Work Phone: 1([phone]) 179-648411-10-2021 15:48-0500Diastolic blood itcwdadk59 mm[Hg] Noreen Champion CNP Work Phone: [facility] Work Phone: 1(482) 222-669111-10-2021 15:48-0500Heart rate90 /minCakelly Champion CNP Work Phone: [facility] Work Phone: 1(640) 780-801411-10-2021 15:48-9956AlL2% (BldA) [Mass fraction]97 % Noreen Champion CNP Work Phone: [facility] Work Phone: 1(281) 179-744811-10-2021 15:48-0500Systolic blood ieymyzgb967 mm[Hg] Noreen Champion CNP Work Phone: [facility] Work Phone: 1(484) 275-137710-26-2021 16:49-0400Diastolic blood evsjkcsk49 mm[Hg] Noreen Champion CNP Work Phone: [facility] Work Phone: 1(435) 339-842210-26-2021 16:49-0400Systolic blood udwitzhf818 mm[Hg] Noreen Champion CNP Work Phone: [facility] Work Phone: 1(153) 228-708310-26-2021 16:17-0400Body nhybsb101.8 Gabriel Champion CNP Work Phone: [facility] Work Phone: 1(751) 573-965010-26-2021 16:17-0400Body mass index (BMI) [Ratio]41.6 kg/m5Vzjryskelly Champion CNP Work Phone: [facility] Work Phone: 1(347) 144-473110-26-2021 16:17-0400Body surface area Derived from formula2.44 e2Pitfpakelly Champion CNP Work Phone: [facility] Work Phone: 1(638) 500-878310-26-2021 16:17-0400Body wekyhjyaijy21 [degF]Noreen Champion CNP Work Phone: [facility] Work Phone: 1(642) 585-106210-26-2021 16:17-0400Body hawomu363.54 kgCakelly Champion CNP Work Phone: [facility] Work Phone: 1(232) 760-605110-26-2021 16:17-0400Diastolic blood sjrignap438 mm[Hg]Noreen Champion CNP Work Phone: [facility] Work Phone: 1([phone]) 566-912210-26-2021 16:17-0400Heart rfcf338 /Cali Champion [employer] PAINTING MACHINE OPERATOR Work Phone: [facility] Work Phone: 1(398) 754-579510-26-2021 16:17-0400Respiratory rate18 /minCakelly Champion LINE PAINTING MACHINE OPERATOR Work Phone: [facility] Work Phone: 1(584) 734-917210-26-2021 16:17-4062HcL8% (BldA) [Mass fraction]98 % Noreen Champion LINE PAINTING MACHINE OPERATOR Work Phone: [facility] Work Phone: 1(676) 695-726010-26-2021 16:17-0400Systolic blood vhzfnqam936 mm[Hg] Noreen Champion CNP Work Phone: [facility] Work Phone: 1(666) 185-649706-22-2021 15:36-0400Diastolic blood ucplmzif40 mm[Hg] Pete Shanaelinda DDS Work Phone: [facility] Work Phone: 1(380) 556-430406-22-2021 15:36-0400Systolic blood jfnmlazb646 mm[Hg] Pete Jc DDS Work Phone: [facility] Work Phone: 1(709) 712-683806-22-2021 15:35-0400Body .8 cmJuabby Shanaeo DDS Work Phone: [facility] Work Phone: 1(403) 106-336106-22-2021 15:35-0400Body mass index (BMI) [Ratio]38.7 kg/z5Xmjxvx Shanaeo DDS Work Phone: [facility] Work Phone: 1(836) 823-275206-22-2021 15:35-0400Body surface area Derived from formula2.37 d4Eaalwq Kioko DDS Work Phone: [facility] Work Phone: 1(816) 630-259306-22-2021 15:35-0400Body kdimgr793.25 kgJuabby Costaoko DDS Work Phone: [facility] Work Phone: 1(815) 265-435906-22-2021 15:35-0400Diastolic blood mm[Hg] Pete Kioko DDS Work Phone: [facility] Work Phone: 1([phone]) 182-521806-22-2021 15:35-0400Heart rate91 /minPete Costaoko DDS Work Phone: [facility] Work Phone: 1(590) 838-379306-22-2021 15:35-9882FzL1% (BldA) [Mass fraction]99 % Pete Kioko DDS Work Phone: [facility] Work Phone: 1(388) 719-145306-22-2021 15:35-0400Systolic blood gxdapjrj155 mm[Hg] Pete Kioko DDS Work Phone: [facility] Work Phone: 1(899) 469-791006-10-2021 16:44-0400Diastolic blood mm[Hg]Pete Kioko DDS Work Phone: [facility] Work Phone: 1([phone]) 132-171506-10-2021 16:44-0400Systolic blood dooqypji938 mm[Hg] Pete Kioko DDS Work Phone: [facility] Work Phone: 1(780) 104-947606-10-2021 15:48-0400Body .8 cmJulucious Shanaeo DDS Work Phone: [facility] Work Phone: 1(193) 651-913706-10-2021 15:48-0400Body mass index (BMI) [Ratio]39.1 kg/x8BvvnvtPete Jc DDS Work Phone: [facility] Work Phone: 1(983) 233-897306-10-2021 15:48-0400Body surface area Derived from formula2.38 h3EzjsjePete Jc DDS Work Phone: [facility] Work Phone: 1([phone]) 166-569806-10-2021 15:48-0400Body yfbbbgqrxkc06.1 [degF]Pete Jc DDS Work Phone: [facility] [facility], [facility] Work Phone: 1(219) 568-417606-10-2021 15:48-0400Body jfysnb224.56 kgJuabby Jc DDS Work Phone: Health [facility] Work Phone: 1(625) [phone] 15:48-0400Diastolic blood xrulcsjh683 mm[Hg]Pete Jc DDS Work Phone: Health [facility] Work Phone: 1(992) [phone] 15:48-0400Heart inxq687 /minPete Jc DDS Work Phone: [facility] Work Phone: 1(220) 216-910706-10-2021 15:48-4289ZsG5% (BldA) [Mass fraction]98 % Pete Jc DDS Work Phone: [facility] Work Phone: 1(109) 575-236806-10-2021 15:48-0400Systolic blood slwhojxx629 mm[Hg] Pete Jollyo SALS Work Phone: [facility] Work Phone: 1(651) [phone] 17:24-0400BMI (Body Mass Index)39.5 kg/m2 [facility] Work Phone: 1(620) [phone] 17:24-0400Body Hqytkeicyaj23.1 [degF][facility] Work Phone: 1(255) 337-835704-12-2021 17:24-0400Body fyfdbr911.74 [facility] Work Phone: 1(240) 370-539004-12-2021 17:24-0400BP Aupqnrbvo463 mm[Hg][facility] Work Phone: 1(440) 430-105804-12-2021 17:24-0400BP Pkbynydv916 mm[Hg]Replaced by [facility] Work Phone: 1(940) 354-264104-12-2021 17:24-0400BSA (Body Surface Area)2.39 m2 [facility] Work Phone: 1(920) 433-346604-12-2021 17:24-0397Doggks093.8 cmJuJackson [facility] Work Phone: 1(930) [phone] 17:24-0400Pulse (Heart Rate)105 /minJuJackson Memorial Hospital Work Phone: 1(890) [phone] 17:24-0400Pulse Hflundyl89 %Replaced by [facility] Work Phone: 1(699) [phone] 17:24-3670ArT8% (BldA) [Mass fraction]95 % Pete JollySSM Health CareS Work Phone: [facility] Work Phone: 1(264) [phone] 18:35-0500BP Dsowyelsi05 mm[Hg]Replaced by [facility] Work Phone: 1(308) 435-832401-26-2021 18:35-0500BP Htmixjjx074 mm[Hg]Replaced by [facility] Work Phone: 1(758) [phone] 15:32-0500BP Wtfflxonv360 mm[Hg][facility] Work Phone: 1(486) [phone] 15:32-0500BP Swiutujj231 mm[Hg]Replaced by [facility] Work Phone: 1(278) [phone] 14:12-0500Body Zbyimsxlzku75.4 [degF][facility], [id number] 14:12-0500BP Uyoafojbx267 mm[Hg][facility], [id number] 14:12-0500BP Efdvzyni591 mm[Hg][facility], [id number] 14:12-0500Pulse (Heart Rate)110 /minFani [facility], [id number] 14:12-0500Pulse Ftptdzdk72 %[facility], [id number] 14:12-0500Respiratory Rate20 /[facility]Bar[facility], [place] Encounters Encounter DateEncounter TypeCare ProviderFacilityStart: 10-21-2024 End: 39-15-3556tykplgemjyClovyw X OrzechFacility:EU evtart: 10-21-2024 End: 51-28-9571Zefxzhn encounter procedureAurora X Orzech [facility] start: 07-15-2645pgprlxjudjEYZXUJUE E PERRYFacility:EU [place]vueStart: 08-02-2024 End: 40-74-0862ozrluarfcmXRBOAHTT E PERRYFacility:EU ueStart: 08-02-2024 End: 22-94-8868Ctwfuvy encounter procedureJENNIFER E [facility] start: 07-30-2024 End: 25-83-2677Vbf Drop offJENNIFER E [facility] Start: 07-30-2024 End: 99-42-8815uxxmivwbrdZIZNOMAX E PERRYFacility:FTMCStart: 07-30-2024 End: 72-32-5211Jdhzyzo encounter procedureJENNIFER E [facility] start: 05-31-2024 End: 80-98-1954ixahbquxwlGCRGJCYS E PERRYFacility:EU BellevueStart: 04-12-2024 End: 62-61-5221mdsazsnkidIG-C KORINA E PERRYFacility:FTMCStart: 04-12-2024 End: 45-07-6955Ykm Drop offJENNIFER E [facility] Start: 04-12-2024 End: 70-86-7489awvjvucwczPQFEJJLJ E PERRYFacility:EU evueStart: 04-12-2024 End: 61-09-0595Ucatiqt encounter procedureJENNIFER E [facility] start: 02-26-2024 End: 04-57-1977qvaztvqfhgRuysld Guzik PTAMARIO SWS PTComment on above:Acute postoperative pain of left shoulder (Primary Dx); S/P arthroscopy of left shoulder; Internal derangement of shoulder, leftStart: 02-24-2024 End: 27-72-1937Rmuals flowsheetJeanettaquilino Jimenez CHIEF PROCUREMENT OFFICER Work Phone: N[facility] PTStart: 02-24-2024 End: 69-79-3976Cqmypo flowsheetJeanette Depoy CHIEF PROCUREMENT OFFICER Work Phone: [facility] SWS PTStart: 02-24-2024 End: 47-31-1659hemrbqpyowGhjuyuse Depoy CHIEF PROCUREMENT OFFICER Work Phone: noMS [facility] PTComment on above:Acute postoperative pain of left shoulder (Primary Dx); S/P arthroscopy of left shoulderStart: 02-19-2024 End: 02-65-1024Ljmvzg flowsheetConnie Anderson PTANO SWS PTStart: 02-19-2024 End: 73-07-1583Oxjxut flowsheetConnie Anderson HINO SWS PTStart: 02-19-2024 End: 60-43-1937dnodlogdszPomftc Anderson [facility] PTComment on above:Acute postoperative pain of left shoulder (Primary Dx); S/P arthroscopy of left shoulder; Internal derangement of shoulder, leftStart: 02-10-2024 End: 97-37-6878Okaqcs flowsheetBrittany Wengerd PTANOMS SWS PTStart: 02-10-2024 End: 87-24-7710Ijapes flowsheetBrittany Wengerd PTANOMS SWS PTStart: 02-10-2024 End: 44-69-7952rnqxcqxjbaFEUGNANP WENGERDNot AvailableStart: 01-29-2024 End: 83-16-0733Qendwp Huy BLEVINS Work Phone: noMS [facility] ORTHOStart: 01-29-2024 End: 24-44-3219Hiwbbu Huy BLEVINS Work Phone: noMS [facility] ORTHOStart: 01-29-2024 End: 73-26-0082hoprgetuelJohr Brittney PTNOMS SWS PTComment on above:Acute postoperative pain of left shoulder (Primary Dx); S/P arthroscopy of left shoulderStart: 01-29-2024 End: 16-49-4698Zbywqz follow up visit related to original Ceferino BLEVINS Work Phone: noms [facility] ORTHOComment on above:S/P arthroscopy of left shoulder (Primary Dx)Start: 01-27-2024 End: 76-28-5178Fxatlf flowskielNolakesha ParrFranklinville PTNO SWS PTStart: 01-27-2024 End: 75-56-0189Vcejmn flowsheetNolakesha ParrBrittney PTNOMS SWS PTStart: 01-27-2024 End: 18-52-0586ohapesknniPlsa [place] PTNO SWS PTComment on above:Acute postoperative pain of left shoulder (Primary Dx); S/P arthroscopy of left shoulderStart: 01-22-2024 End: 79-24-3308Icsltn roxyNolakesha ParrBrittney PTNOMS SWS PTStart: 01-22-2024 End: 57-16-8081Uzsltg roxyNolakesha ParrFranklinville PTNO SWS PTStart: 01-22-2024 End: 47-89-6482zukkubacsaHvqj Brittney PTNO SWS PTComment on above:Acute postoperative pain of left shoulder (Primary Dx); S/P arthroscopy of left shoulderStart: 01-20-2024 End: 43-25-7775Zybbqq flowsheetMelissa Dmitriy PTANO SWS PTStart: 01-20-2024 End: 19-24-9660Dtrgeu flowsheetMelissa Kelgennay PTANO SWS PTStart: 01-20-2024 End: 66-30-6978tkxxmhkjdbLbkuafx Kelbley PTANO SWS PTComment on above:Acute postoperative pain of left shoulder (Primary Dx); S/P arthroscopy of left shoulder; Internal derangement of shoulder, leftStart: 01-02-2024 End: 81-78-1514bfkmrwqusyDscf Raul PTANOMS SWS PTComment on above:Acute postoperative pain of left shoulder (Primary Dx); S/P arthroscopy of left shoulderStart: 01-01-2024 End: 45-79-0973Hnahmj Huy BLEVINS Work Phone: noms SWS ORTHOStart: 01-01-2024 End: 67-56-3701Grbigg Huy BLEVINS Work Phone: NOTP SWS ORTHOStart: 01-01-2024 End: 10-17-1721Ybnnrt follow up visit related to original Ceferino BLEVINS Work Phone: noms SWS ORTHOComment on above:S/P arthroscopy of left shoulder (Primary Dx)Start: 01-01-2024 End: 11-57-0715vrmeaqijjoMWOKYQM J MEYERNot AvailableStart: 12-30-2023 End: 75-85-8665Jbtzic flowsheetJeri Raul PTANOMS SWS PTStart: 12-30-2023 End: 08-49-9291Fwvdho flowsheetJeri Raul PTANOMS SWS PTStart: 12-30-2023 End: 26-08-0889igkquyeihzGtdb Raul PTANOMS SWS PTComment on above:Acute postoperative pain of left shoulder (Primary Dx); S/P arthroscopy of left shoulderStart: 12-29-2023 End: 76-29-2007Roxcoahqo encounterYo BLEVINS Work Phone: noms SWS ORTHOStart: 12-24-2023 End: 21-83-5365Muwpribyv encounterYo BLEVINS Work Phone: noms SWS ORTHOComment on above:NoteStart: 12-23-2023 End: 82-77-4299Zgnjmi flowsheetNoah [place] PTNOMS SWS PTStart: 12-23-2023 End: 94-85-8124Hgozep flowsheetNoah [place] PTNOMS SWS PTStart: 12-23-2023 End: 03-13-5751bbprubcyutNsrl Brittney PTNOMS SWS PTComment on above:Acute postoperative pain of left shoulder (Primary Dx); S/P arthroscopy of left shoulderStart: 12-18-2023 End: 43-34-1683Mmaxes flowsheetNoah [place] PTNOMS SWS PTStart: 12-18-2023 End: 06-18-1872Mfqjcq flowsArabella Lugo PTNOMS SWS PTStart: 12-18-2023 End: 15-00-1796apncdjegqqHtsd Winslow PTNOMS SWS PTComment on above:Acute postoperative pain of left shoulder (Primary Dx); S/P arthroscopy of left shoulderStart: 12-15-2023 End: 01-26-9766Qxxuet flowsArabella Lugo PTNOMS SWS PTStart: 12-15-2023 End: 28-25-0846Fczrry flowskielNolakesha ParrBrittney PTNOMS SWS PTStart: 12-15-2023 End: 48-15-1767toipzezqyzDrtt [place] PTNOMS SWS PTComment on above:Acute postoperative pain of left shoulder (Primary Dx); S/P arthroscopy of left shoulderStart: 12-09-2023 End: 26-83-2960ZkxykuJt. Killian Gong DO Work Phone: noms [facility] ORTHOComment on above:Post-op painStart: 12-08-2023 End: 20-16-0652Ynqnobwkp encounterSdmitrintsolange Valadez PTNOMS CI PTComment on above:PT Initial Eval (Tried to contact to set-up PT Eval for S/P L shoulder Arthroscopy; but had to lm requesting call back.); Call back (He contacted and noted his address is [place] and due to more convenience he'd like to schedule w/ [place]. He said he hoped to be contacted lyle. I mentioned about insurance (side note) and he said he was provided a new coverage and will bring in w/ him.)Start: 12-05-2023 End: 92-31-6754Zqimcp Huy BLEVINS Work Phone: noms FB ORTHOPAEDICSStart: 12-05-2023 End: 03-29-6754Pyyclp Huy BLEVINS Work Phone: noms FB ORTHOPAEDICSStart: 12-05-2023 End: 72-49-4521Zwhneq follow up visit related to original Ceferino BLEVINS Work Phone: noms FB ORTHOPAEDICSComment on above:S/P arthroscopy of left shoulder (Primary Dx)Start: 12-05-2023 End: 55-69-0761dclcktqrkoIYWOLBB J MEYERNot AvailableStart: 11-20-2023 End: 78-35-5808Mhygqpnaj encounterJrGlo Gong DO Work Phone: noms SWS ORTHOComment on above:MedicationStart: 10-23-2023 End: 07-80-0688Widpnz flowsheetYo BLEVINS Work Phone: noms SWS ORTHOStart: 10-23-2023 End: 48-01-2560Frvnem Huy BLEVINS Work Phone: noms SWS ORTHOStart: 10-23-2023 End: 98-23-4328Mjtsjzj encounter procedureYo BLEVINS Work Phone: noms SWS ORTHOComment on above:Preop examination (Primary Dx)Start: 10-23-2023 End: 86-63-5681Hjxffxctstygf examination doneMajosiah BLEVINS Work Phone: noms HealthcareStart: 10-23-2023 End: 16-63-1525xqktelnukaHEVJXPB J MEYERNot AvailableStart: 10-03-2023 End: 61-33-7937Vdektxdui encounterJessmay REAL FB ORTHOPAEDICSStart: 09-29-2023 End: 17-38-1416egkbjvwzxmFF., KILLIAN Youngblood AvailableStart: 08-04-2023 End: 43-13-6148Vwjunfu encounter procedureElie GOMEZ [facility] start: 05-02-2023 End: 27-27-6598zfnhlflkcgYCOCTSV Vance AvailableStart: 48-89-5552Osa- patient / Non-visitAPRN Korina Crews Work Phone: [facility] Gastroenterology Work Phone: Start: 04-30-2023 End: 96-74-9409Ftozwkjoc to same day surgery centerAPRReyes Hui Mars Work Phone: [facility] Work Phone: Start: 04-30-2023 End: 55-98-9692oenoqmpdopOVCV Korina Mars Work Phone: [facility] Work Phone: Start: 04-28-2023 End: 48-94-7317qypdcpqwbqCTKILLIAN Abebe AvailableStart: 04-22-2023 End: 02-72-3382ntwqhzulsdIHUBGQT J MEYERNot AvailableStart: 04-21-2023 End: 98-60-0764Zuqjayz encounter procedureAPRReyes Korina Crews Work Phone: [facility] Work Phone: Start: 04-09-2023 End: 75-71-7856kbykhvmcufNPPICII J MEYERNot AvailableStart: 03-24-2023 End: 77-82-2404Bsvhgk outpatient visit 25 minutesMajosiah BLEVINS Work Phone: noms CI ORTHOPAEDICSComment on above:Acute pain of left shoulder (Primary Dx); Traumatic partial tear of left biceps tendon, subsequent encounter; Arthritis of left acromioclavicular joint; Impingement syndrome of left shoulderStart: 88-90-8141Mrthss flowsheetYo BLEVINS Work Phone: noms CI ORTHOPAEDICSStart: 10-86-7877Jccqep flowskiel BLEVINS Work Phone: noms CI ORTHOPAEDICSStart: 07-70-3389Gezazclvf encounterImad AsaadFPG Referral CoordinatorStart: 03-24-2023 End: 49-99-8730volwynwhidGFIPIGZ J MEYERNorth [employer] Other Start: 69-43-2796Ihi-patient / Non-visitAPRN Korina Mars Work Phone: [facility] [employer] Work Phone: Start: 03-17-2023 End: 43-88-4934vsakguvtmbExuuelgv Rohrbacher Other [employer] Other Start: 19-35-9550Dskwopiuv for general adult medical examination without abnormal findingsMerylaney BurnsrbacherFMercy Health St. [facility] Start: 99-63-2142Wlrrxydw preventive med est patient 40-64yrsZekerafaellaney Mars [facility] Hospitaltart: 02-05-2023 End: 57-14-8282xibcldxowhIfpyrmvr Rohrbachejosé Other [employer] Other Start: 49-05-1646Pentvijxj encounterJenilam BurnsrbacherFWestern Reserve Hospitaltart: 05-23-2021 End: 81-20-0968Ywvjdsgio department patient visitPHYSICIAN [facility] Hospitaltart: 12-20-2020 End: 00-69-3507OBGI visit, rigo Champion LINE PAINTING MACHINE OPERATOR Work Phone: [facility] Work Phone: Start: 12-05-2020 End: 70-80-8931TQEF visit, rigo Lopez LINE PAINTING MACHINE OPERATOR Work Phone: [facility] Work Phone: Start: 08-01-2020 End: 05-45-8227WbkhtlaIihvbtAlma Handley MD Work Phone: [facility] Work Phone: Start: 08-01-2020 End: 33-40-7293tbzzbbyqukXocbjr Lawrence LINE PAINTING MACHINE OPERATOR Work Phone: [facility] Work Phone: Start: 08-01-2020 End: 37-48-8060DaobowmGitjyfzkv Radha [facility] Work Phone: [facility] Work Phone: Start: 07-21-2020 End: 80-95-1555gzfptartjpESEFBY L TABERMercy University of [facility] Center/[facility] Hospitaltart: 07-21-2020 End: 61-38-0004Tqdkwcvtub hospital visit by Neelima Champion TROUBLE SHOOTING MECHANIC - FLOOR COVERER Work Phone: mthz LaboratoryStart: 07-20-2020 End: 08-88-7649ZUIN visit, rigo REYNOSO Work Phone: [facility] Work Phone: Start: 07-20-2020 End: 38-56-1312ZTUV visit, rigo Champion LINE PAINTING MACHINE OPERATOR Work Phone: [facility] Work Phone: Start: 07-20-2020 End: 84-16-8765UeqcfslLqpmki Lawrence LINE PAINTING MACHINE OPERATOR Work Phone: [facility] Work Phone: Start: 05-22-2020 End: 01-57-1778Bedzuntfdvf patientNoreen Champion Work Phone: [facility] Work Phone: Start: 03-07-2020 End: 13-55-2302Rvkowcy encounter procedureJulius Kioko Work Phone: [facility] Work Phone: Start: 02-29-2020 End: 83-30-4125Prsdabgro department patient visitJulius Kioko Work Phone: [facility] Work Phone: Start: 73-04-6772Bgjcw oral eval problm Elmer Jc Work Phone: [facility] Work Phone: Start: 01-19-2020 End: 02-22-8904Cunyxtpdg department [facility] Start: 01-19-2020 End: 29-97-0931Hxtfmynil department patient visitPeoples [facility] EDComment on above:Contusion of left hand, initial encounter (Primary Dx)Start: 02-04-2019 End: 63-26-5172Qrsmoxumn department patient visitISHELEN [facility] Facility[facility] Procedures DateProcedureProcedure DetailPerforming ClinicianStart: 61-16-3144Bpxrolurw colonoscopyAPRN Korina Crews Work Phone: Start: 03-25-2023 End: 87-17-4681Lzcmetvcnbxfho aspir&/inj major jt/bursa w/o usMatthew Raquel BLEVINS Work Phone: Start: 53-16-8775Fjuh recent diastolic blood pressure 80-89 mm hgCassleandro Champion CNP Work Phone: Start: 47-25-7185Cgxe recent systolic blood press 130- 139mm hgCassleandro Champion CNP Work Phone: Start: 30-81-9404Ktxwgrzfqv glycosylated w0jWtkpnpTiffanie Lopez CNP Work Phone: Start: 59-03-3027Liyjtjrooxwad w/patient 30 minutes Jannet Garcia [facility] Work Phone: Start: 58-80-2450Yukjyns smokeless tobacco userYas Brewerg PharmD Work Phone: Start: 07-83-1926Pswq bld gluc mntr dev cleared fda spec home useRogelioi Osmang PharmD Work Phone: Start: 06-41-9434Vnxb recent diastol blood pres >/equal 90 mm hgYas Georges PharmD Work Phone: Start: 95-75-6973Wthf recent hemoglobin a1c level >9.0%Yas Georges PharmD Work Phone: Start: 92-77-0365Jcyj recent systolic blood pres>/equal 140 mm hgYas Brewerg PharmD Work Phone: Start: 72-81-6153Vgsybcilril drug monitoring assay Preventive Med Therapeutic Monitor Test Ordered/performed Nick / ArbAngela John LINE PAINTING MACHINE OPERATOR Work Phone: Start: 54-07-1041Keyorawxtcuit metabolic panelCassie L Darren TROUBLE SHOOTING MECHANIC - FLOOR COVERER Work Phone: Start: 93-85-8072Afkhu panelCassie L Darren TROUBLE SHOOTING MECHANIC - FLOOR COVERER Work Phone: Start: 46-31-3262Bkellaomqg glycosylated r0eNvxfhb Darren LINE PAINTING MACHINE OPERATOR Work Phone: Start: 97-85-0864Mbnuxobveuqjj w/patient 30 minutes Leigh Short LISWS Work Phone: Start: 84-94-4959Nkjok albumin semiquantitativeCassie Darren LINE PAINTING MACHINE OPERATOR Work Phone: Start: 76-31-4955RirenkvjukpkrvgHrpcrl IgorovioStart: 05-57-3977AjmwdgvunxpilsgAeethl Kioko DDS Work Phone: Start: 70-54-9283Iemx exam performedCassie Darren Work Phone: Start: 82-31-5228Lrudqqiao on boneJulius Babita DDS Work Phone: Start: 13-06-4011Yfcyrgidwdnae w/patient 30 minutes Leigh Short Work Phone: Start: 43-28-4978Konbcyze procedure muscskeletal system generalJuabby JollyoStart: 65-03-6036Pe Charge VisitJulius Jc Work Phone: Start: 58-07-1341Ztgrbgqfz periapical firstPete Jc Work Phone: Start: 43-46-8848Zjqvs hand minimum 3 viewsCASSIE TABERStart: 31-69-5876Txhnu hand minimum 3 viewsRichdianne Bryant Work Phone: CholecystectomyJENNIFER History of repair of musculotendinous cuff of shoulder KORINA COREA Plan of Treatment DateCare ActivityDetailAuthorStart: 03-04-2024 End: 20-59-1414kljelpqnuw09/23/2025 9:30 AM EST Treatment [facility] [address] [place] [address] Sandra Schreiber PTANOMS SWS PTStart: 03-02-2024 End: 76-08-6550xwgpymclud84/21/2025 9:30 AM EST Treatment [facility] [address] [place] [address] Alina Lugo PTNOMS SWS PTStart: 02-26-2024 End: 10-48-4884egvlcrmpwt50/16/2025 9:30 AM EST Treatment [facility] [address] [place] [address] Sandra Schreiber PTANOMS SWS PTStart: 02-26-2024 End: 84-33-9494Asegxsh encounter iohyasyon57/16/2025 8:45 AM EST Office Visit [facility] [address] [place] [address] Yo Corrales, [place] [address] [place] [address] NOMS SWS ORTHOStart: 02-24-2024 End: 29-87-7457xhrbyiibkaXGPZ SWS PTComment on above:ArrivedStart: 02-12-2024 End: 12-36-8806jmowdkdgnrLKYJ SWS PTStart: 02-10-2024 End: 05-81-0025bfjnvgfbkcDBCI SWS PTComment on above:ArrivedStart: 01-29-2024 End: 85-60-2289kmdyhcnego22/19/2024 10:30 AM EST Treatment [facility] [address] [place] [address] Alina Lugo, PTNOMS SWS PTStart: 01-29-2024 End: 05-94-3040Zylmktc encounter kydkatesj32/19/2024 9:15 AM EST Office Visit [facility] [address] [place] [address] Yo Corrales PA [address] [place] [address] NOMS SWS ORTHOStart: 01-27-2024 End: 34-06-8426adeiecjeou45/17/2024 9:30 AM EST Treatment [facility] [address] [place] [address] Alina Lugo, PTNOMS SWS PTStart: 01-22-2024 End: 43-44-6432zalskdlzcyMZCM SWS PTComment on above:ArrivedStart: 01-06-2024 End: 68-61-7342bsowhfpcdt33/26/2024 10:30 AM EST Treatment [facility] [address] [place] [address] Alina Lugo, PTNOMS SWS PTStart: 01-02-2024 End: 07-43-4252vsgrjvanyg78/22/2024 8:00 AM EST Treatment [facility] [address] [place] [address] Karine Carter, PTANOMS SWS PTStart: 01-01-2024 End: 39-83-1698Pstqgff encounter procedureNOMS SWS ORTHOComment on above:S/P arthroscopy of left shoulder (Primary Dx)Start: 12-30-2023 End: 66-16-1064jlgxhvmaljJNVL SWS PTComment on above:ArrivedStart: 12-25-2023 End: 15-70-6761gezynzedpm63/14/2024 11:30 AM EST Treatment [facility] [address] [place] [address] Leo Lopez PTAYAYA SWS PTStart: 12-23-2023 End: 73-60-6851gbgkhbuwtb03/12/2024 2:00 PM EST Treatment [facility] [address] [place] [address] Alina Lugo PTNO SWS PTStart: 12-18-2023 End: 70-90-5447gqzttqcodeEFKC [facility] PTComment on above:ArrivedStart: 12-15-2023 End: 09-50-1142stgmijqpre63/04/2024 10:30 AM EST Evaluation [facility] [address] [place] [address] Alina Lugo PTNO [facility] PTStart: 12-05-2023 End: 57-58-6191Zzuqabi encounter rnebxjxkc41/25/2024 9:00 AM EDT Office Visit [facility] [address] [place] [address] Yo Corrales, [place] [address] [facility] [address] [place] [address] ArrivedNODOCTORS HOSPITAL OF SPRINGFIELD ORTHOPAEDICSComment on above:ArrivedStart: 12-04-2023 End: 29-39-0404Liwfgmw encounter gtgkvahoi47/24/2024 9:00 AM EDT Office Visit [facility] [address] [place] [address] Yo Corrales, [place] [address] [facility] [address] [place] [address] NOMS SWS ORTHOStart: 11-21-2023 End: 07-71-7197Fjboasz encounter povzopzgc21/11/2024 8:00 AM EDT Procedure Visit [facility] EXT Jr. Killian Deal DO [address] [place] [address] NOMS EXT DEPStart: 10-23-2023 End: 62-33-0564Zcxsv metabolic 1998 panel - Serum or PlasmaBasic metabolic panel Lab Routine Preop examination Expected: 10/23/2023 (Approximate), Expires: 06/2024[facility] Work Phone: Comment on above:Expected: 10/23/2023 (Approximate), Expires: 10/15/2024Start: 10-23-2023 End: 06-20-0626Cvgjmvz encounter rjfuwsqda61/12/2024 8:30 AM EDT Office Visit [facility] [address] [place] [address] Yo Corrales, [place] [address] [place] [address] Preop examination (Primary Dx)[facility] ORTHOComment on above:Preop examination (Primary Dx)Start: 63-17-9944FdydtlcthThe University of Toledo Medical Centertart: 04-09-2023 End: 70-98-1672Pctfnvi encounter vtkwyozua50/28/2024 2:15 PM EST Office Visit [facility] [address] [place] [address] Yo Cor[place]es, [place] [address] [place] [address] [facility] ORTHOStart: 03-24-2023 End: 15-25-4925Tymzrov encounter gpvfplyxw86/12/2024 2:15 PM EST Office Visit [facility] [address] [place] [id number] Yo [place]es, [place] [address] [place] [address] Acute pain of left shoulder (Primary Dx); Traumatic partial tear of left biceps tendon, subsequent encounterNOMS ORTHOPAEDICSComment on above:Acute pain of left shoulder (Primary Dx); Traumatic partial tear of left biceps tendon, subsequent encounterStart: 32-85-0804YXZZ visit, estab ptMedical Established [facility] Work Phone: Start: 34-83-8410FUAL-CoV-2, [facility] HealthStart: 98-66-9173Kfwqfpdwd vaccinationFlu vaccine (Season Ended) [facility] Work Phone: start: 67-27-4313[facility] Work Phone: Start: 21-80-1327IPX Diabetes [facility] Work Phone: Start: 44-02-2067DXA W Auto Differential panel - Blood [facility]Start: 12-29-7185Lawss 1995 panel - Serum or PlasmaLIPID PROFILEFairview HospitalStart: 12-08-7684NTHW visit, estab ptMedical [facility] Work Phone: Start: 29-18-4532Tevpu 1995 panelHealth [facility] Work Phone: Start: 44-98-5093Xktiazpyo vaccinationFlu vaccine (#1) [place], [place]: 10-38-7097Hrpvf panelLipid screenCarlisle, [place] Start: 10-03-3286Bfhyaieyzh measurementCreatinine monitoringCarl[place], [place] Start: 45-51-4034Zcijqtysb monitoringPotassium [place] Start: 50-08-0219ZwO4g (Bld) [Mass fraction]A1C test (Diabetic or Prediabetic) [place], [place]: 89-42-8155Yxaknwriro A1c fmyssqojgadF2E test (Diabetic or Prediabetic)[facility] Work Phone: start: 88-64-1905BGfL/Tdap/Td vaccine (1 - Tdap) DTaP/Tdap/Td vaccine (1 - Tdap)[facility]: 71-64-1328CDS screeningHIV [facility]: 94-77-4104BQLZW-19 Vaccine (1) COVID-19 Vaccine (1)[facility] Work Phone: Start: 38-17-4037Ftzobsosf C screeningHepatitis C [facility] Work Phone: patient EducationHemorrhoids Colon polypsAshtabula General Hospital Work Phone: Immunizations Immunization DateImmunizationNotesCare XqkdveayBqhsvkoi14-72-8059huljmnk and diphtheria toxoids, adsorbed, preservative free, for adult use (5 Lf of tetanus toxoid and 2 Lf of diphtheria toxoid)JENNI Crews Work Phone: [facility]04-13-2022tetanus toxoid, reduced diphtheria toxoid, and acellular pertussis vaccine, adsorbed Korina Crews Other [facility] HospitalComment on above:Result Comment: 2023-08-01: VIS DATE: 09/15/2020 24-26-32680ii Dose PFIZER COVID-19 VaccineCakelly Champion LINE PAINTING MACHINE OPERATOR Work Phone: [facility]Comment [facility] above: Note: reports having vaccine at iss08-08-22563iw Dose PFIZER COVID-19 Vaccine Noreen Darren LINE PAINTING MACHINE OPERATOR Work Phone: [facility] HospitalComment on above: Note: reports having vaccine at cvsResult Comment: 2023-08-01: [id number] influenza, high dose seasonal, preservative-freeJuus [facility] Work Phone: Comment on above:Note: Influenza (Adult) Payers DatePayer CategoryPayerPolicy [id number] 2024Managed Care HMO (unspecified)[id number] 2024Medicaid [id number] [id number]-[id number]16.315 [id number] 2.16840.1.706524.70449583-61-9453Xvqcpot3 - [place] [id number] 2.16840.1.449739.3.140.1.11604.5.10.6.871-13-0685Ofuysvc Health Insurance [id number] 1.2.840.098763.1.13.239.2.7.3.144482.60830-80-3286Mijtdcg Health Ev[id number] 2.16840.1.049449.3.579.2. [id number] 2.16.840.1.186166.3.57[id number] 2.16840.1.715932.3.57[id number] 2.16.840.1.934949.3.57[id number] 2.16840.1.894431.3.57[id number] 2.0.1.155961.3.57[id number] 2..1.983010.3.57[id number] 2.0.1.309758.3.57[id number] 2..1.846154.3.579.2.632377-51-7644Srpnhrq4690356 2..1.059077.3.57[id number] 2..1.686021.3.57[id number] 2..1.732776.3.579.2.605492-49-2291Onidyzd1992839 2..1.089458.3.579.2.396571-17-2696Hsuhzul8510691 2..1.856182.3.57[id number] 2..1.910781.3.57[id number] 2..1.997877.3.57[id number] 2..1.684087.3.57[id number] 2..1.379614.3.57[id number] 2.0.1.225344.3.579.[id number] 2.0.1.581381.3.57[id number] 2.16840.1.188191.3.579.2.387253-77-3766Auapnmj1509187 2.16.840.1.320115.3.57[id number] 2.840.1.990384.3.579.2.893317-79-6217Jjlkoha2127521 2.840.1.028515.3.579.2.645218-44-0511Yjpmvyq9487069 2.0.1.099066.3.579.2.449229-02-1868Nzfmufr4554216 2.840.1.728815.3.579.2.076143-51-4266Lwbuzfh1850477 2.0.1.030480.3.57[id number] 2.840.1.684816.3.579.[id number] 2.840.1.413202.3.57[id number] 2.840.1.236892.3.579.[id number] 2.840.1.440827.3.579.2.61291-57-9111Zkitncq62992401 2.840.1.927948.3.57[id number] 2.840.1.378304.3.57[id number] 2.840.1.623508.3.57[id number] 2.16.840.1.616817.3.579.2.727Self-[id number] 2.16.840.1.685551.3.140.1.68007.5.4 [id number] 2.16.840.1.389268.3.579.2.531 Social History DateTypeDetailFacilityStart: 12-16-2016 End: 71-90-1603Tqhvnyb smoking status NHISNever smokerCommunity [facility]: 12-16-2016 End: 27-81-6398Vjnyiph use and exposureCurrent userCarl[place], [place]History of tobacco useChews TobaccoCommunity Memorial Hospital: 12-16-2016 End: 48-70-1304Zjgopdh intakeCurrent drinker of alcohol (finding)[facility]: 01-09-9571Wnmakcg Commentocassionally. 12 PACK YEARLYCommunity [facility]: 62-11-6126Xwd Assigned At BirthNot on [place] AssertionFamily problems (finding)[facility] Work Phone: assertionEmotional stress (finding)[facility] Work Phone: assertionSocial drinker (finding)[facility] Work Phone: Tobacco smoking statusUnknown if ever smokedFairview Hospital Work Phone: assertionTobacco user (finding)[facility] Work Phone: assertionGender identity finding (finding)[facility] Work Phone: assertionFinding of sexual orientation (finding)[facility] Work Phone: assertionEmployment finding (finding)[facility] Work Phone: assertionFinding of alcohol intake (finding)[facility] Work Phone: [phone]-qgye employment (finding)[facility] Work Phone: Start: 30-80-3469HvqjlclkiEo-smoker (finding)[facility]: 03-97-7372ZyhdsbrshQihpwksun [facility] Centertart: 08-07-2022 End: 38-39-0955Xoz [facility]: 08-07-2022 End: 11-64-9296Dwejlke of Social functionNOMS HealthcareStart: 62-43-4241Kwg Assigned At [facility] HospitalTobacco smoking status [facility] Tobacco smoking statusLight tobacco smoker (finding) [facility] SouthexMale (finding)[facility]NEGATED: Highlighted rowAssertionFinding relating to drug misuse behavior (finding)[facility] Work Phone: NEGATED: Highlighted rowAssertionExposure to pollution (event)[facility] Work Phone: NEGATED: Highlighted rowAssertionTobacco user (finding)[facility] Work Phone: NEGATED: Highlighted rowAssertionHealth [facility] Work Phone: NEGATED: Highlighted rowAssertionCurrent drinker of alcohol (finding)[facility] Work Phone: NEGATED: Highlighted rowAssertionEx-smoker (finding) [facility] Work Phone: Medical Equipment Procedure CodeEquipment CodeEquipment Original TextEquipment IdentifierDatesTrue Comfort Twist Top Lancets [id number]: 14-38-5343Ahxs Focus Blood Glucose Strip In [id number]: 05-22-2020 End: 80-49-9842QMMRZRY 30 GAUGE [id number]: 04-25-2017 End: 71-50-4362BRUAQHY 30 GAUGE [id number]: 02-20-2016 End: 49-36-7438CLR NEEDLE, DIABETIC 31 gauge X 5/16 [id number]: 12-25-2015 End: 91-88-2493QID NEEDLE, DIABETIC 31 gauge X 5/16 [id number]: 04-25-2017 End: 49-17-0034QHKXCODG TEST STRIPS [id number]: 12-26-2014 End: 44-85-1916JDYVRBOB TEST STRIPS [id number]: 12-26-2014 End: 37-12-0201IQLHEUJC TEST STRIPS [id number]: 06-28-2015 End: 32-24-5980QUEMRJVE TEST STRIPS [id number]: 06-28-2015 End: 95-48-4733Paechfh Syringe 31G X 5/16 0.5 ML [id number]: 07-21-2020 End: 37-95-3348Cucm Focus Blood Glucose Strip In [id number]: 08-01-2020 Insulin Syringe 31G X 5/16 0.5 ML [id number]: 10-20-2020 End: 33-62-9105OVSSgdzy Insulin Syringe 30G X 5/16 0.5 ML [id number] Start: 86-10-2005Ciegbbz Syringe 31G X 5/16 0.5 ML [id number]: 12-20-2020 Goals DatePatient GoalDesired Activity/State Functional Status EfmtOgoggxwattYkwwdnHjsoblic63-32-8226Cfdbgdmdgj StatusN/AExec[facility] Mental Status DateAssessmentResultFacilityCognitive functionCognitive functioning was normal Cognitive function finding (finding)[facility] Work Phone: Clinical Notes 05-22-2020 to 09-13-2024 Note Date & KjzsRssfHmldsavl69-40-7213 Evaluation + Plan note Future Scheduled Tests Laboratory* Testosterone Level Total 09/13/24 [facility] Janet 06-23-2025 Hospital Discharge instructions Patient Education 08/02/2024 08:32:10 Health Risks of Smoking Health Risks of Smoking Smoking tobacco is very bad for your health. Tobacco smoke contains many toxic chemicals that can damage every part of your body. Secondhand smoke can be harmful to those around you. Tobacco or nicotine use can cause many long-term (chronic) diseases. Smoking is difficult to quit because a chemical in tobacco, called nicotine, causes addiction or dependence. When you smoke and inhale, nicotine is absorbed quickly into your bloodstream through yourlungs. Both inhaled and non-inhaled nicotine may be addictive. How can quitting affect me? There are health benefits of quitting smoking. Some benefits happen right away and others take time. Benefits may include: Blood flow, blood pressure, heart rate, and lung capacity may begin to improve. However, any lung damage that has already occurred cannot be repaired. Respiratory symptoms from smoking, such as nasal congestion and cough, may improve over time. Your risk of heart disease, stroke, and cancer is reduced. The overall quality of your health may improve. You may save money, as you will not spend money on tobacco products and may spend less money on smoking-related health issues. What can increase my risk? Smoking harms nearly every organ in the body. People who smoke tobacco have a shorter life expectancy and an increased risk of many serious medical problems. These include: More respiratory infections, such as colds and pneumonia. Cancer. Heart disease. Stroke. Chronic respiratory diseases. Delayed wound healing and increased risk of complications during surgery. Problems with reproduction, , and childbirth, such as infertility, early (premature) births, stillbirths, and defects. Secondhand smoke exposure to children increases the risk of: Sudden infant syndrome (SIDS). Infections in the nose, throat, or airways (respiratory infections). Chronic respiratory symptoms. What actions can I take to quit? Smoking is an addiction that affects both your body and your mind, and long-time habits can be hardto change. Your health care provider can recommend: Nicotine replacement products, such as patches, gum, and nasal sprays. Use these products only as directed. Do not replace cigarette smoking with electronic cigarettes, which are commonly called e-cigarettes. The safety of e-cigarettes is not known, and some may contain harmful chemicals. Programs and community resources, which may include group support, education, or talk therapy. Prescription medicines to help reduce cravings. A combination of two or more quit methods, which may increase the success of quitting. Where to find support Follow the recommendations from your health care provider about support groups and other assistance. You can also visit: U.S. Department of Health and Human Services: www.smokefree.gov [place] [employer]: www.freedomfromsmoking.org [place] [employer]: www.heart.org Where to find more information Centers for Disease Control and Prevention: www.cdc.gov World Health Organization: www.who.int Summary Smoking tobacco is very bad for your health. Tobacco smoke contains many toxic chemicals that can damage every part of the body. Smoking is difficult to quit because a chemical in tobacco, called nicotine, causes addiction or dependence. There are immediate and long-term health benefits of quitting smoking. A combination of two or more quit methods may increase the success of quitting. This information is not intended to replace advice given to you by your health care provider. Make sure you discuss any questions you have with your health care provider. Document Revised: 01/29/2022 Document Reviewed: 01/29/2022 [employer] Patient Education 2023 [employer]. Follow Up Care 05/31/2024 09:03:35 With:KORINA COREA PA-C, URL Address: [address] [place] [address] Business (1) When:6 weeks [facility] 06-23-2025 NotePatient Education Pulmonary Medicine Health Risks of Smoking Smoking tobacco is very bad for your health. Tobacco smoke contains many toxic chemicals that can damage every part of your body. Secondhand smoke can be harmful to those around you. Tobacco or nicotine use can cause many long-term (chronic) diseases. Smoking is difficult to quit because a chemical in tobacco, called nicotine, causes addiction or dependence. When you smoke and inhale, nicotine is absorbed quickly into your bloodstream through yourlungs. Both inhaled and non-inhaled nicotine may be addictive. How can quitting affect me? There are health benefits of quitting smoking. Some benefits happen right away and others take time. Benefits may include: ??? Blood flow, blood pressure, heart rate, and lung capacity may begin to improve. However, any lung damage that has already occurred cannot be repaired. ??? Respiratory symptoms from smoking, such as nasal congestion and cough, may improve over time. ??? Your risk of heart disease, stroke, and cancer is reduced. ??? The overall quality of your health may improve. ??? You may save money, as you will not spend money on tobacco products and may spend less money onsmoking-related health issues. What can increase my risk? Smoking harms nearly every organ in the body. People who smoke tobacco have a shorter life expectancy and an increased risk of many serious medical problems. These include: ??? More respiratory infections, such as colds and pneumonia. ??? Cancer. ??? Heart disease. ??? Stroke. ??? Chronic respiratory diseases. ??? Delayed wound healing and increased risk of complications during surgery. ??? Problems with reproduction, , and childbirth, such as infertility, early (premature) births, stillbirths, and defects. Secondhand smoke exposure to children increases the risk of: ??? Sudden syndrome (SIDS). ??? Infections in the nose, throat, or airways (respiratory infections). ??? Chronic respiratory symptoms. What actions can I take to quit? Smoking is an addiction that affects both your body and your mind, and long-time habits can be hardto change. Your health care provider can recommend: ??? Nicotine replacement products, such as patches, gum, and nasal sprays. Use these products only as directed. Do not replace cigarette smoking with electronic cigarettes, which are commonly called e-cigarettes. The safety of e- cigarettes is not known, and some may contain harmful chemicals. ??? Programs and community resources, which may include group support, education, or talk therapy. ??? Prescription medicines to help reduce cravings. ??? A combination of two or more quit methods, which may increase the success of quitting. Where to find support Follow the recommendations from your health care provider about support groups and other assistance. You can also visit: ??? U.S. Department of Health and Human Services: www.smokefree.gov ??? [place] [employer]: www.freedomfromsmoking.org ??? [place] Heart [employer]: www.heart.org Where to find more information ??? Centers for Disease Control and Prevention: www.cdc.gov ??? World Health Organization: www.who.int Summary ??? Smoking tobacco is very bad for your health. Tobacco smoke contains many toxic chemicals that can damage every part of the body. ??? Smoking is difficult to quit because a chemical in tobacco, called nicotine, causes addiction or dependence. ??? There are immediate and long-term health benefits of quitting smoking. ??? A combination of two or more quit methods may increase the success of quitting. This information is not intended to replace advice given to you by your health care provider. Make sure you discuss any questions you have with your health care provider. Document Revised: 01/29/2022 Document Reviewed: 01/29/2022 [employer] Patient Education ? 2023 [employer].[facility] 05-31-2024 NotePatient Education Urology Erectile Dysfunction Erectile dysfunction (ED) is the inability to get or keep an erection in order to have sexual intercourse. ED is considered a symptom of an underlying disorder and is not considered a disease. ED mayinclude: ??? Inability to get an erection. ??? Lack of enough hardness of the erection to allow penetration. ??? Loss of erection before sex is finished. What are the causes? This condition may be caused by: ??? Physical causes, such as: ? Artery problems. This may include heart disease, high blood pressure, atherosclerosis, and diabetes. ? Hormonal problems, such as low testosterone. ? Obesity. ? Nerve problems. This may include back or pelvic injuries, multiple sclerosis, Parkinson's disease, spinal cord injury, and stroke. ??? Certain medicines, such as: ? Pain relievers. ? Antidepressants. ? Blood pressure medicines and water pills (diuretics). ? Cancer medicines. ? Antihistamines. ? Muscle relaxants. ??? Lifestyle factors, such as: ? Use of drugs such as marijuana, cocaine, or opioids. ? Excessive use of alcohol. ? Smoking. ? Lack of physical activity or exercise. ??? Psychological causes, such as: ? Anxiety or stress. ? Sadness or depression. ? Exhaustion. ? Fear about sexual performance. ? Guilt. What are the signs or symptoms? Symptoms of this condition include: ??? Inability to get an erection. ??? Lack of enough hardness of the erection to allow penetration. ??? Loss of the erection before sex is finished. ??? Sometimes having normal erections, but with frequent unsatisfactory episodes. ??? Low sexual satisfaction in either partner due to erection problems. ??? A curved penis occurring with erection. The curve may cause pain, or the penis may be too curved to allow for intercourse. ??? Never having nighttime or morning erections. How is this diagnosed? This condition is often diagnosed by: ??? Performing a physical exam to find other diseases or specific problems with the penis. ??? Asking you detailed questions about the problem. ??? Doing tests, such as: ? Blood tests to check for diabetes mellitus or high cholesterol, or to measure hormone levels. ? Other tests to check for underlying health conditions. ? An ultrasound exam to check for scarring. ? A test to check blood flow to the penis. ??? Doing a sleep study at home to measure nighttime erections. How is this treated? This condition may be treated by: ??? Medicines, such as: ? Medicine taken by mouth to help you achieve an erection (oral medicine). ? Hormone replacement therapy to replace low testosterone levels. ? Medicine that is injected into the penis. Your health care provider may instruct you how to give yourself these injections at home. ? Medicine that is delivered with a short applicator tube. The tube is inserted into the opening atthe tip of the penis, which is the opening of the urethra. A tiny pellet of medicine is put in the urethra. The pellet dissolves and enhances erectile function. This is also called MUSE (medicated urethral system for erections) therapy. ??? Vacuum pump. This is a pump with a ring on it. The pump and ring are placed on the penis and used to create pressure that helps the penis become erect. ??? Penile implant surgery. In this procedure, you may receive: ? An inflatable implant. This consists of cylinders, a pump, and a reservoir. The cylinders can be inflated with a fluid that helps to create an erection, and they can be deflated after intercourse. ? A semi-rigid implant. This consists of two silicone rubber rods. The rods provide some rigidity. They are also flexible, so the penis can both curve downward in its normal position and become straight for sexual intercourse. ??? Blood vessel surgery to improve blood flow to the penis. During this procedure, a blood vessel from a different part of the body is placed into the penis to allow blood to flow around (bypass) damaged or blocked blood vessels. ??? Lifestyle changes, such as exercising more, losing weight, and quitting smoking. Follow these instructions at home: Medicines ??? Take twxz-fhl-yrtfvsw and prescription medicines only as told by your health care provider. Do not increase the dosage without first discussing it with your health care provider. ??? If you are using self-injections, do injections as directed by your health care provider. Make sure you avoid any veins that are on the surface of the penis. After giving an injection, apply pressure to the injection site for 5 minutes. ??? Talk to your health care provider about how to prevent headaches while taking ED medicines. These medicines may cause a sudden headache due to the increase in blood flow in your body. General instructions ??? Exercise regularly, as directed by your health care provider. Work with your health care provider to lose weight, if needed. ??? Do not u (more content not included)...[facility]03-03-2025 Hospital Discharge instructions Patient Education 04/12/2024 10:10:31 Smokeless Tobacco Information, Adult Smokeless Tobacco Information, Adult Tobacco is a leafy plant that contains a chemical called nicotine. Tobacco use is harmful to your health. Nicotine affects the chemicals in your brain, and this can cause you to crave nicotine. Thesecravings can lead to addiction. Smokeless tobacco is tobacco that you put in your mouth instead of smoking it. It may also be called chewing tobacco or snuff. Smokeless tobacco is made from the leaves of tobacco plants and comes in many forms, such as: Loose, dry leaves. Plugs or twists. Moist pouches. Dissolving lozenges or strips. Chewing, sucking, or holding the tobacco in your mouth causes your mouth to make more saliva. The saliva mixes with the tobacco to make tobacco juice that is swallowed or spit out. How can smokeless tobacco use affect me? All forms of tobacco contain many chemicals that can harm every organ in the body. Using smokeless tobacco increases your risk for: Cancer. Tobacco use is one of the leading causes of cancer. Smokeless tobacco is linked to cancer of the mouth, esophagus, and pancreas. Other long-term health problems, including high blood pressure, heart disease, and stroke. Addiction. complications. women who use smokeless tobacco are more likely to have a miscarriage or deliver a baby too early (premature delivery). Mouth and dental problems, such as: ?Bad breath. ?Teeth that look yellow or brown. ?Mouth sores. ?Cracking and bleeding lips. ?Gum recession, gum disease, or tooth decay. ?Lesions on the soft tissues of your mouth (leukoplakia). The benefits of not using smokeless tobacco include: A healthy mind and body. Saving money. You avoid the cost of buying tobacco and the cost of treating illnesses that are caused by tobacco. What actions can I take to quit using tobacco? Ask your health care provider for help to quit using smokeless tobacco. This may involve treatment. These tips may also help you quit: Pick a date to quit. Set a date within the next 2 weeks. This gives you time to prepare. Write down the reasons why you are quitting. Keep this list in places where you will see it often, such as on your bathroom mirror or in your car or wallet. Identify the people, places, things, and activities that make you want to use smokeless tobacco (triggers). Avoid them. Tell your family and friends that you are quitting. Look for a support group in your area. Having support can make quitting easier. Get rid of any tobacco you have and remove any tobacco smells. To do this: ?Throw away all containers of tobacco at home, at work, and in your car. ?Throw away any other items that you use regularly when you chew tobacco. ?Clean your car and make sure to remove all tobacco-related items. ?Clean your home, including curtains and carpets. Keep track of how many days have passed since you quit. It may help to cross days off a calendar. Remembering how long and hard you have worked to quit can help you avoid using smokeless tobacco again. Stay positive. Be prepared for cravings. It is common to slip up when you first quit, so take it one day at a time. Stay busy and take care of your body. Get plenty of exercise. Drink enough water to keep your urinepale yellow. Where to find support Ask your health care provider if there is a local support group for quitting smokeless tobacco and any available online resources, such as: Smoke Free: www.veterans.smokefree.gov Be Tobacco Free: www.betobaccofree.hhs.gov Tobacco Quitline: 1-594-TUXL-VET ( ). Hotlines, such as 6-174-YSON-NOW ( ). Where to find more information You can learn more about the risks of using smokeless tobacco and the benefits of quitting from these sources: [place] [employer]: www.cancer.org National Cancer [place]: www.cancer.gov Centers for Disease Control and Prevention: www.cdc.gov Food and Drug Administration: www.fda.gov/tobacco-products Contact a health care provider if you have: Trouble quitting smokeless tobacco use on your own. White or other discolored patches in your mouth. Difficulty swallowing. A change in your voice. Unexplained weight loss. Stomach pain, nausea, or vomiting. Summary Smokeless tobacco contains many different chemicals that are known to cause cancer. Nicotine is an addictive chemical in smokeless tobacco that affects your brain. The benefits of not using smokeless tobacco include having a healthy mind and body and saving money. Tell your family and friends that you are quitting. Having support can make quitting easier. Ask your health care provider for help quitting smokeless tobacco. This may involve treatment. This information is not intended to replace advice given to you by your health care provider. Make sure you discuss any questions you have with your health care provider. Document Revised: 10/24/2021 Document Reviewed: 10/24/2021 [employer] Patient Education 2023 [employer]. Follow Up Care 04/09/2024 09:40:08 With:KORINA COREA PA-C, URL Address: [address] [place] [address] Business (1) When:6 weeks Comments:Repeat Testosterone level a few days prior [facility] 03-03-2025 NoteUrology Office/Clinic Note Chief Complaint referral HPI Staff 53yr old male pt referred by Korina Crews APRN, JOSE FRANCISCO for low testosterone. Previously on sildenafil, which is no longer working. Denies all urinary symptoms. IPSS - 5, HERBERT - 1. Could not provide urine sample today. Testosterone 03/22/23 - 198 PSA 03/22/23 - 0.81 Review of Systems PHQ Score Initial Depression Screen Score: 0 SCORE No fever, chills, malaise, myalgia. No dysuria, pain w/ ejaculation, pain w/ BM. No blood in urine, ejaculate, or stool. No change in urgency/frequency, straining, stream changes. No discharge, odor, or change in color of urine. No perineal pain/pressure, scrotal pain, or suprapubic pain. Physical Exam Vitals & Measurements HR: 93(Peripheral) RR: 18 BP: 156/98 HT: 71 in HT: 180 cm WT: 124 kg WT: 273.373 lb BMI: 38.27 General: nontoxic, NAD Mouth: moist mucosa Lungs: normal respiratory effort Cardio: regular rate, good distal perfusion Abdomen: nondistended, no suprapubic distention or tenderness, no CVA tenderness Neurologic: Grossly normal Skin: No rashes or suspicious lesions Assessment/Plan 1. 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 Now A1c 7.3), HLD (recently resumed atorvastatin), HTN (lisinopril & chlorthalidone), GERD (omeprazole), ED, Anxiety (venlafaxine) Recently joined [employer] Pt has the following symptoms of low Testosterone: Energy severe decrease Strength mild decrease Stamina/Endurance mild decrease Libido severe decrease Mood mild changes Weight/Fat storage - used to be 475# has lost 200# Baseline labs: 03/22/23 Nl renal function Cholesterol nl, Trigs barely elevated 152 (<150nl) PSA 0.81 Hgb 15.7 Hct 44.2 Total T 198, Free T 5.8 Need to order: Since all labs >1 yr old, will draw today Testosterone total, PSA LFTs, Lipids, H&H LH, FSH, Prolactin Testosterone replacement therapy The patient's lab work and clinical symptoms suggest that he has hypogonadism or testosterone deficiency. I had a long discussion with the patient about the treatment options of his condition. This included lifestyle modification as well as supplementation. Exogenous testosterone as well as the useof selective estrogen receptor modulators (SERMs), aromatase inhibitors, human gonadotropins were discussed. The several treatment options including various formulations were discussed. I explained the risks, benefits, mechanisms, and use of each therapy. I described potential side effects of treatment. Common side effects include acne, erythrocytosis, breast tenderness, and changes in behavior. I highlighted the effect of exogenous testosterone on the reproductive system, including decrease in testicular volume and the negative affect on sperm production which may result in sterility, which could be permanent. We discussed that current data suggest that external testosterone therapy does not cause an increase in the risk of developing prostate cancer, and can also be used safely in patients after prostate cancer treatment. It may however cause an increase in prostate volume and PSA. Discussed oral, topical, and injection therapy. Pt decides on topical. We also discussed the precautions necessary to keep the medication from contacting others, especially women and children, for whom contact with the medication can be particularly harmful. He will usesoap and water to wash his hands after application and will clean his skin before having rekh-da-dsmo contact with others. A monitoring schedule was discussed with includes routine evaluation of serum testosterone, hematocrit, lipid panel, and PSA. No barriers to learning were identified. After all of the patient???s questions were satisfactorilyanswered, he expressed understanding of the risks of therapy. Ordered: Body Mass Index (BMI) documented 3008F Current smokeless tobacco user 1035F Depression Screening Negative 3352F E&M of New Patient Moderate 45-59 Min 90716 FSH Level Hemoglobin and Hematocrit Hepatic Function Panel Influenza immunization status assessed 1030F Lipid Panel Luteinizing Hormone Medication list documented in medical record 1159F Most recent diastolic blood pressure >=90 mm Hg 3080F Most recent systolic blood pressure >= 140 mm Hg 3077F Prolactin Level PSA Screen, Total Review of all meds by a prescribing practitioner or clinical pharmacist documented in EHR 1160F Testosterone Level Total 2. Erectile dysfunction (N52.9: Male erectile dysfunction, unspecified) HERBERT 1. Failed Sildenafil 100mg. Worked at lower dose initially. Then stopped working even at higher doses and then max dose. We will table this for now and address #1 then revisit ED tx options. Ordered: E&M of New Patient Moderate 45-59 Min 39762 3. BPH without urinary obstruction (N40.0: Benign prostatic hyperplasia without lower urinary tractsymptoms) IPSS 5 (more content not included)...[facility] CenterComment on above:Result Comment: Electronically Signed By: KORINA COREA PA-C\Date and Time Signed: 04/12/2509:11 [id number] NotePatient Education Dentistry Smokeless Tobacco Information, Adult Tobacco is a leafy plant that contains a chemical called nicotine. Tobacco use is harmful to your health. Nicotine affects the chemicals in your brain, and this can cause you to crave nicotine. Thesecravings can lead to addiction. Smokeless tobacco is tobacco that you put in your mouth instead of smoking it. It may also be called chewing tobacco or snuff. Smokeless tobacco is made from the leaves of tobacco plants and comes in many forms, such as: ??? Loose, dry leaves. ??? Plugs or twists. ??? Moist pouches. ??? Dissolving lozenges or strips. Chewing, sucking, or holding the tobacco in your mouth causes your mouth to make more saliva. The saliva mixes with the tobacco to make tobacco juice that is swallowed or spit out. How can smokeless tobacco use affect me? All forms of tobacco contain many chemicals that can harm every organ in the body. Using smokeless tobacco increases your risk for: ??? Cancer. Tobacco use is one of the leading causes of cancer. Smokeless tobacco is linked to cancer of the mouth, esophagus, and pancreas. ??? Other long-term health problems, including high blood pressure, heart disease, and stroke. ??? Addiction. ??? complications. women who use smokeless tobacco are more likely to have a miscarriage or deliver a baby too early (premature delivery). ??? Mouth and dental problems, such as: ? Bad breath. ? Teeth that look yellow or brown. ? Mouth sores. ? Cracking and bleeding lips. ? Gum recession, gum disease, or tooth decay. ? Lesions on the soft tissues of your mouth (leukoplakia). The benefits of not using smokeless tobacco include: ??? A healthy mind and body. ??? Saving money. You avoid the cost of buying tobacco and the cost of treating illnesses that are caused by tobacco. What actions can I take to quit using tobacco? Ask your health care provider for help to quit using smokeless tobacco. This may involve treatment. These tips may also help you quit: ??? Pick a date to quit. Set a date within the next 2 weeks. This gives you time to prepare. ??? Write down the reasons why you are quitting. Keep this list in places where you will see it often, such as on your bathroom mirror or in your car or wallet. ??? Identify the people, places, things, and activities that make you want to use smokeless tobacco(triggers). Avoid them. ??? Tell your family and friends that you are quitting. Look for a support group in your area. Having support can make quitting easier. ??? Get rid of any tobacco you have and remove any tobacco smells. To do this: ? Throw away all containers of tobacco at home, at work, and in your car. ? Throw away any other items that you use regularly when you chew tobacco. ? Clean your car and make sure to remove all tobacco-related items. ? Clean your home, including curtains and carpets. ??? Keep track of how many days have passed since you quit. It may help to cross days off a calendar. Remembering how long and hard you have worked to quit can help you avoid using smokeless tobacco again. ??? Stay positive. Be prepared for cravings. It is common to slip up when you first quit, so take it one day at a time. ??? Stay busy and take care of your body. Get plenty of exercise. Drink enough water to keep your urine pale yellow. Where to find support Ask your health care provider if there is a local support group for quitting smokeless tobacco and any available online resources, such as: ??? Smoke Free: www.veterans.smokefree.gov ??? Be Tobacco Free: www.betobaccofree.hhs.gov ??? Tobacco Quitline: 0-471-NJIU-VET ( ). ??? Hotlines, such as 2-413-KGGG-NOW ( ). Where to find more information You can learn more about the risks of using smokeless tobacco and the benefits of quitting from these sources: ??? [place] [employer]: www.cancer.org ??? National Cancer [place]: www.cancer.gov ??? Centers for Disease Control and Prevention: www.cdc.gov ??? Food and Drug Administration: www.fda.gov/tobacco-products Contact a health care provider if you have: ??? Trouble quitting smokeless tobacco use on your own. ??? White or other discolored patches in your mouth. ??? Difficulty swallowing. ??? A change in your voice. ??? Unexplained weight loss. ??? Stomach pain, nausea, or vomiting. Summary ??? Smokeless tobacco contains many different chemicals that are known to cause cancer. ??? Nicotine is an addictive chemical in smokeless tobacco that affects your brain. ??? The benefits of not using smokeless tobacco include having a healthy mind and body and saving money. ??? Tell your family and friends that you are quitting. Having support can make quitting easier. ??? Ask your health care provider for help quitting smokeless tobacco. This may involve treatment. This information is not intended to replace advice (more content not included)...[facility]12-19-2024 History of Present illness Narrative* Alina Lugo, PT - 01/29/2024 10:30 AM EST Physical Therapy Physical Therapy Treatment Visit Patient Name: Richard Dumont Today's Date: 01/29/2024 Encounter Diagnoses Name Primary? Acute postoperative pain of left shoulder Yes S/P arthroscopy of left shoulder Visit number: 9 Supervised time: 38 minutes Total time: 58 minutes Started session 10 minutes early Precautions: No resistive strengthening until 12 weeks post op 02/13/24 s/p L RTC repair with SAD. DOS was 11/21/23. Subjective Pain: 0/10 today Overall progress: Improving with ROM and strength of the shoulder. Pt saw Sony Corrales earlier this morning and pt states that he was very pleased with his progress. Did say he had some minor pain thismorning but took some Ibuprofen and now it is feeling better. Can begin resistive strengthening 02/12wh pt is 12 weeks post op. Treatment: Therapeutic Exercise: ( x38' supervised / x5' unsupervised ) per grid for AAROM and AROM L shoulder. Modalities: (x15' ) ESTIM and ice to L shoulder post session to decrease muscle soreness Assessment/Plan PN was completed last session. Good tolerance to session today. Made some progressions to AROM today without adverse response. Pt will do HEP at home for all of next week and return the following week where the resistive strengthening phase can begin on 02/13/24 as this is when the pt will be 12 weeks post op. Plan: Continue per POC. Can do resistive strengthening in 2 weeks (12 weeks post op per [employer] Corrales's note. documented in this encounterMercy McCune-Brooks [id number] History of Present illness Narrative* FELICITY Steve - 01/29/2024 9:15 AM EST Images from the original note were not included. HISTORY OF PRESENT ILLNESS: POST OP PT Richard Dumont is an 53 y.o. @ male. (EST PT) S/P (L) SHOULDER SCOPE 11/21/23 (9WKS 6DAYS) DOING WELL. NOTES MINIMAL SORENESS IN THE AM AFTER WAKING. CONTINUES PHYSICAL THERAPY 2x WEEKLY @ [facility], WITH HEP - NOTES INCREASING ROM. TAKING PERCOCET PRN ; ALSO USING ICE. PT IS WONDERING WHEN HE CAN USE HEAT ON HIS SHOULDER. REVIEW OF SYSTEMS: General: Denies fever, fatigue or weight loss Lungs: Denies SOB Cardio: Denies chest pain GI: Denies indigestion or abdominal pain Neuro: Denies numbness or tingling, denies new onset paralysis Musculoskeletal: ( see note) PHYSICAL EXAM: Left Shoulder Exam Tenderness The patient is experiencing no tenderness (compartments soft). Range of Motion Active abduction: normal Passive abduction: normal Extension: normal External rotation: normal Forward flexion: normal Internal rotation 0 degrees: T12 normal Muscle Strength Left shoulder normal muscle strength: Fires deltoid and rotator cuff. Other Erythema: absent Scars: absent (portals well healed) Sensation: normal Pulse: present Comments: The operative upper extremity was noted to be neurovascularly unchanged. Sensation to light touch was intact to all dermatomes to operative upper extremity. Radial and ulnar pulses were present and equal bilaterally. Patient was able to motor elbow wrist and fingers in all anatomic planeswith 5 out of 5 strength on the operative upper extremity. Compartments were soft to operative upper extremity. There was no evidence of infection or ascending lymphangitis to operative extremity. Procedures No orders of the defined types were placed in this encounter. ASSESSMENT: ICD-10-CM 1. S/P arthroscopy of left shoulder Z98.890 S/p rotator cuff repair and SAD Assessment & Plan 1. Post-operative status following left shoulder arthroscopy. He is currently at the 10-week post-operative fani. His recovery trajectory is positive, with full passive and active range of motion achieved. He reports no fever or illness. He is advised to initiate strengthening exercises in 2 weeks. The use of a heating pad in the morning is recommended to alleviate stiffness in the shoulder. Continuation of therapy is encouraged, with a caveat against commencing strengthening exercises until the aforementioned 2-week period has elapsed. A follow-up appointment will be scheduled in 4 weeks to assess his progress and determine his readiness to return to work or the necessity for additional strengthening exercises. Follow-up The patient will follow up in 4 weeks. PROCEDURE The patient underwent left shoulder arthroscopy 10 weeks ago. Questions answered in laymen terms at the bedside. The diagnosis, home exercise plan and any ongoing restrictions/ recommendations reviewed. If unable to be reached in office, I recommend evaluation at nearest Emergency Room if any symptoms worsened or new symptoms develop for requiring urgent evaluation. documented in this encounterMercy McCune-Brooks [id number] History of Present illness Narrative* Alina Lugo, PT - 01/22/2024 10:30 AM EST Physical Therapy Physical Therapy Treatment Visit Patient Name: Richard Dumont Today's Date: 01/22/2024 Encounter Diagnoses Name Primary? Acute postoperative pain of left shoulder Yes S/P arthroscopy of left shoulder Visit number: 7 Supervised time: 39 minutes Total time: 60 minutes Precautions: Per [facility] from 01/01/24- June start AROM and then DC to HEP when full prom and AROM achieved. no weight or resistance until 12 wks (Jan 12) post op s/p L RTC repair with SAD. DOS was 11/21/23. Subjective Pain: 3/10 pain. Says it is only painful because he just woke up. Overall progress: Improving with ROM and strength. Continues to report having some good days and bad days. Notes more soreness if he uses the arm too much. Treatment: Therapeutic Exercise: ( x39' supervised / x6' unsupervised ) per grid for AAROM, AROM, and light strengthening L shoulder Modalities: (x15' ) ESTIM and ice to L shoulder post session to decrease muscle soreness Assessment/Plan Good tolerance to session. Added some light strength exercises today. Challenged with ER walkouts due to weakness of the RTC. Updated HEP today to include more AROM based exercises. Note some soreness post session from progressions made. No adverse response. Says he felt better after ESTIM and ice. Plan: Progress with AA/AROM/light strengthening to pt tolerance. documented in this encounterMercy McCune-Brooks [id number] History of Present illness Narrative* FELICITY Steve - 01/01/2024 9:15 AM EST Images from the original note were not included. HISTORY OF PRESENT ILLNESS: POST OP PT Richard Dumont is an 53 y.o. @ male. (EST PT) S/P (L) SHOULDER SCOPE 11/21/23 (5WKS 6DAYS) DOING WELL. NOTES INTERMITTENT DISCOMFORT AFTER THERAPY ; SOME THROBBING HS - TAKING IBUPROFEN / CONTINUES TO ICE. CONTINUES PHYSICAL THERAPY 2x WEEKLY @ [facility]. CONTINUES TO WEAR ULTRASLING AT ALL TIME. REVIEW OF SYSTEMS: General: Denies fever, fatigue or weight loss Lungs: Denies SOB Cardio: Denies chest pain GI: Denies indigestion or abdominal pain Neuro: Denies numbness or tingling, denies new onset paralysis Musculoskeletal: ( see note) PHYSICAL EXAM: Left Shoulder Exam Tenderness The patient is experiencing no tenderness (compartments soft). Range of Motion Active abduction: 170 normal Passive abduction: 170 normal Extension: 60 External rotation: 90+ normal Forward flexion: 180 normal Internal rotation 0 degrees: L2 Muscle Strength Left shoulder normal muscle strength: Fires deltoid and rotator cuff. Other Erythema: absent Scars: absent (portals well healed) Sensation: normal Pulse: present Comments: The operative upper extremity was noted to be neurovascularly unchanged. Sensation to light touch was intact to all dermatomes to operative upper extremity. Radial and ulnar pulses were present and equal bilaterally. Patient was able to motor elbow wrist and fingers in all anatomic planeswith 5 out of 5 strength on the operative upper extremity. Compartments were soft to operative upper extremity. There was no evidence of infection or ascending lymphangitis to operative extremity. Procedures No orders of the defined types were placed in this encounter. S/p rotator cuff repair and SAD. ASSESSMENT: ICD-10-CM 1. S/P arthroscopy of left shoulder Z98.890 PLAN: Assessment & Plan 1. Status post left shoulder arthroscopy with rotator cuff repair and subacromial decompression. He is doing well. He notes that his shoulder feels so much better than before surgery. He may progress to active range of motion and continue passive range of motion. Restrictions with no weights or resistance in the left arm were discussed. He will continue his home exercise plan and discontinue the sling today. Follow-up Return in 5 weeks for follow up before transitioning to any strengthening or resistance exercises. Questions answered in laymen terms at the bedside. The diagnosis, home exercise plan and any ongoing restrictions/ recommendations reviewed. If unable to be reached in office, I recommend evaluation at nearest Emergency Room if any symptoms worsened or new symptoms develop for requiring urgent evaluation. documented in this encounterMercy McCune-Brooks [id number] Telephone encounter Note* Telephone Encounter - Keri Hernandez - 12/29/2023 2:49 PM EST Patient notified [facility] [id number] Miscellaneous Notes* Telephone Encounter - Keri Hernandez - 12/29/2023 2:49 PM EST Patient notified * Telephone Encounter - FELICITY Steve - 12/29/2023 1:00 PM EST Oarrs reviewed. RX sent to pharmacy. Please notify pt. Take least effective dose for pain control. * Telephone Encounter - Keri Hernandez - 12/29/2023 12:16 PM EST Patient called in requesting a refill on his percocet. Please advise [phone]. documented in this encounterMercy McCune-Brooks [id number] Telephone encounter Note* Telephone Encounter - FELICITY Steve - 12/29/2023 1:00 PM EST Oarrs reviewed. RX sent to pharmacy. Please notify pt. Take least effective dose for pain control. [facility]-Brooks [id number] Telephone encounter Note* Telephone Encounter - Keri Hernandez - 12/29/2023 12:16 PM EST Patient called in requesting a refill on his percocet. Please advise [phone]. [place] [id number] Telephone encounter Note* Telephone Encounter - Keri Hernandez - 12/24/2023 10:58 AM EST Note created and printed. [place] [id number] Miscellaneous Notes* Telephone Encounter - Keri Hernandez - 12/24/2023 10:58 AM EST Note created and printed. * Telephone Encounter - Keri Hernandez - 12/24/2023 8:32 AM EST Patient called requesting a note for [employer]. He needs it to state he is unable to work due to his LT rotator cuff. Please advise [phone]. documented in this encounterNOMS [id number] Telephone encounter Note* Telephone Encounter - Keri Hernandez - 12/24/2023 8:32 AM EST Patient called requesting a note for [employer]. He needs it to state he is unable to work due to his LT rotator cuff. Please advise [phone]. [facility]-Brooks [id number] History of Present illness Narrative* Alina Parrslow, PT - 12/23/2023 2:00 PM EST Images from the original note were not included. Physical Therapy Physical Therapy Treatment Visit Patient Name: Richard Dumont Today's Date: 12/23/2023 Encounter Diagnoses Name Primary? Acute postoperative pain of left shoulder Yes S/P arthroscopy of left shoulder Visit number: 3 Supervised time: 39 minutes Total time: 67 minutes Precautions: per [facility]es's note Recheck in 4 wk. Prom only.. pt pleased with progress. Verbalized importance to use sling. No AROM. No weight or resistance. s/p L RTC repair with SAD. DOS was 11/21/23. Subjective Pain: 05/20 L shoulder Overall progress: Pt says the L shoulder is feeling much better since last session. Has been more compliant with HEP. Still says he is having trouble sleeping at night. Treatment: Therapeutic Exercise: per grid for phase 1 shoulder ROM/strength exercises and shot hole shooter strengthening x15' supervised / x13' unsupervised Manual Therapy: L shoulder PROM all directions to pt tolerance x24' Modalities: ESTIM and ice to L shoulder post session 15' Assessment/Plan Multiple cues to relax during PROM; overall much better with this today compared to last session. Pt was able to achieve more PROM in all planes with less pain compared to last week as well. Added ERball isometric along with scaption table slides. No adverse response to session and progressions today. Minor soreness following FL and ER ball iso's. Continued to educate pt on the importance of keeping sling on at home except when showering and to keep icing at home. Plan: Progress lightly with shoulder PROM and phase 1 post op shoulder/elbow/wrist exercises documented in this [facility]11-07-2024 History of Present illness Narrative* Alina Lugo, PT - 12/18/2023 12:30 PM EST Images from the original note were not included. Physical Therapy Physical Therapy Treatment Visit Patient Name: Richard Dumont Today's Date: 12/18/2023 Encounter Diagnoses Name Primary? Acute postoperative pain of left shoulder Yes S/P arthroscopy of left shoulder Visit number: 2 Supervised time: 34 minutes Total time: 61 minutes Precautions: per Sony Corrales's note Recheck in 4 wk. Prom only.. pt pleased with progress. Verbalized importance to use sling. No AROM. No weight or resistance. s/p L RTC repair with SAD. DOS was 11/21/23. Subjective Pain: 6/10 L shoulder Overall progress: Pt notes some increases in soreness in the shoulder. Says he did not sleep well last night. He attributes soreness from doing too much around the house. Treatment: Therapeutic Exercise: per grid for phase 1 shoulder ROM/strength exercises and shot hole shooter strengthening x8' supervised / x12' unsupervised Manual Therapy: L shoulder PROM all directions to pt tolerance x26' Modalities: ESTIM and ice to L shoulder post session 15' Assessment/Plan Multiple cues to relax during PROM; slowly improved with this as the session went on. Empty end feels due to pain. Pt mostly has pain upon lowering the LUE from both FL and ABD. Cues needed to make sure he is using momentum to move his LUE when doing pendulums to prevent AROM of the shoulder; did correct after 2-3 cues. Continued to educate pt on the importance of keeping sling on at home except when showering and to keep icing at home. Plan: Progress lightly with shoulder PROM and phase 1 post op shoulder/elbow/wrist exercises documented in this encounterMercy [facility]-Bro[facility] [id number] History of Present illness Narrative* Alina Lugo, PT - 12/15/2023 10:30 AM EST Images from the original note were not included. Physical Therapy Physical Therapy Evaluation Visit Patient Name: Richard Dumont Today's Date: 12/15/2023 Encounter Diagnoses Name Primary? Acute postoperative pain of left shoulder Yes S/P arthroscopy of left shoulder Visit number: 1 Started session 7' late Subjective Richard Dumont 53 y.o. male presents to physical therapy s/p L RTC repair with SAD. DOS was 11/21/23. 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 Pain: 0/10 currently. Does get some pain at night Location: global L shoulder Aggravating Factors: pain is worse at night Relieving factors: Percocet. Ice Work/employment: [employer]. 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 Does not have a RTW date setyet. 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 Prom only.. pt pleased with progress. Verbalized importance to use sling. No AROM. No weight or resistance. Objective Shoulder Musculoskeletal Exam Inspection Left Incision: clean, dry, intact and well-healed Palpation Palpation additional comments: Deferred Range of Motion Left Passive forward elevation: 95 degrees. Left shoulder passive abduction: 77 degrees. Left passive external rotation 90 degrees: 20 degrees. Passive internal rotation at 90 degrees: 40 degrees. Range of motion additional comments: No AROM assessed today due to surgical restrictions at this time Strength Strength additional comments: NT per surgical restrictions Wrist MMT grossly: 4/5 Special Tests: Deferred Treatment Interventions for POC: Education: HEP education with demonstration, Educated on Eval Findings and POC Manual Therapy: Passive ROM, Joint mobilization, Soft Tissue Mobilization, Myofascial Release, Muscle Energy Technique, Myofascial Cupping, Dry Needling, IASTM, and Scar mobilization Therapeutic Exercise: LUE Strength, Endurance, Flexibility, ROM, HEP, and Power Therapeutic Activity: Exercises to improve dynamic activities, functional tasks, functional mobility to return to prior activity level Aquatic Therapy: if needed Neuromuscular re-education: Muscle Facilitation, Dynamic Stability, and Blood Flow Restriction Training (BFRT) Modalities: Heat, Ice, Electrical Stimulation, and Ultrasound Prognosis: good Assessment/Plan Pt presents to outpatient physical therapy services s/p L shoulder RT%C repair and SAD. Pt had surgery on 11/21/23. Pt's main complaint since the procedure is difficulty sleeping at night and being worried about injuring his arm. Pt currently displays with decreased L shoulder AROM/PROM, decreased L shoulder/elbow/shot hole shooter strength, decreased shoulder stability, pain, difficulty sleeping. Currently has empty end feels with PROM due to pain. Pt needs multiple cues to relax during PROM assessment. 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 PLAN FOR NEXT SESSION: Review HEP, PROM shoulder all directions to pt tolerance, NO shoulder AAROM and AROM at this time. Can do light wrist strengthening and phase 1 shoulder post op exercises. See HEP. ESTIM and ice post session. GOALS: Short Term Goal #1: Pt to be compliant with HEP in order to make gains when not in therapy Short Term Goal #2: Pt to improve L shoulder PROM to WFL in 4-6 weeks so the pt can progress to more AROM and strengthening phase of rehab Short Term Goal #3: Pt to improve L shoulder MMT grossly to 4-/5 in 4-6 weeks so the pt can put on clothes without difficulty Supervisor Title Goal #1: Pt to improve L shoulder AROM to WFL in 4-5 months so the pt can reach [place] without difficulty for all house related chores. 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 HEP demo (pendulums, shoulder isometrics, table slides FL and scaption, scap squeezes). Pt was educated to ice multiple times per day to help reduce soreness and inflammation. Educated to wear his sling per Dr's orders and not to actively use the LUE with tasks at home. Modalities: ESTIM and ice post session 15 minutes Richard Dumont will benefit from physical therapy 2-3 times per week for 4-5 months per above plan of care. documented in this [facility]10-28-2024 Telephone encounter Note* Telephone Encounter - Ann Powell - 12/08/2023 9:57 AM EDT [facility] notes not covered; Varun miranda needs auth when scheduled. [facility] [id number] Miscellaneous Notes* Telephone Encounter - Ann Powell - 12/08/2023 9:57 AM EDT [facility] notes not covered; Varun miranda needs auth when scheduled. documented in this [facility]10-25-2024 History of Present illness Narrative* FELICITY Steve - 12/05/2023 9:00 AM EDT Images from the original note were not included. HISTORY OF PRESENT ILLNESS: POST OP PT Richard Dumont is an 53 y.o. @ male. No surgery found s/p surgery onNo surgery found EST PT 1ST P/O (L) SHOULDER SCOPE 11/21/2023 @[facility] (2WKS)- DOING GREAT- MINIMAL DISCOMFORT- NOTES SOME ACHINESS/THROBBING- +IBUPROFEN- WEARING ULTRA SLING- DOES HEP- SUTURES REMOVED WITHOUT DIFFICULTY REVIEW OF SYSTEMS: General: Denies fever, fatigue or weight loss Lungs: Denies SOB Cardio: Denies chest pain GI: Denies indigestion or abdominal pain Neuro: Denies numbness or tingling, denies new onset paralysis Musculoskeletal: ( see note) PHYSICAL EXAM: Ortho Exam MR shoulder left wo IV contrast Narrative: EXAMINATION: MR SHOULDER LEFT WO IV CONTRAST HISTORY: Left shoulder pain with decreased range of motion. TECHNIQUE: Routine non-contrast MRI of the shoulder, left side COMPARISON: Radiographs 08/07/2022. RESULT: Some limitations from motion. Rotator Cuff Tendons: Full-thickness tearing involving essentially entire distal supraspinatus withmedial retraction of the torn fibers to near the acromion, with underlying tendinosis. Mild to moderate tendinosis involving infraspinatus and subscapularis, without evidence for tear within limits of motion. Teres minor appears intact. Long Head Biceps Tendon: Intra-articular portion not well visualized, could be artifactual secondary to motion versus tear. Muscle: Mild volume loss of supraspinatus. Labrum: Diffuse fraying/tearing. Bones and Marrow: No evidence of fracture or bone marrow replacing process. Glenohumeral Joint: Osteophytes without distinct measurable chondral defect within limits of motion. Small joint effusion. Acromioclavicular Joint: Mild to moderate degenerative changes. Undersurface osteophytes. Other: Fluid extending into the subacromial subdeltoid bursa. Impression: Full-thickness tearing involving essentially entire distal supraspinatus, with mild associated volume loss. ELECTRONICALLY SIGNED BY: Byron Gaytan MD Procedures Orders Placed This Encounter Procedures Ambulatory referral to Physical Therapy Standing Status: Future Standing Expiration Date: 06/04/2024 Referral Priority: Routine Referral Type: Consultation Referral Reason: Consult and Treat Referred to Provider: Danii Staples, PT Requested Specialty: Physical Therapy Number of Visits Requested: 1 ASSESSMENT: ICD-10-CM 1. S/P arthroscopy of left shoulder Z98.890 Ambulatory referral to Physical Therapy S/p rotator cuff repair and SAD. PLAN: Recheck in 4 wk. Prom only.. pt pleased with progress. Verbalized importance to use sling. No AROM.No weight or resistance. Questions answered in laymen terms at the bedside. The diagnosis, home exercise plan and any ongoing restrictions/ recommendations reviewed. If unable to be reached in office, I recommend evaluation at nearest Emergency Room if any symptoms worsened or new symptoms develop for requiring urgent evaluation. documented in this [facility]10-25-2024 Instructions* Patient Instructions* FELICITY Steve - 12/05/2023 9:00 AM EDT Discussed patient being 2 wks s/p Rotator cuff surgery: surgery discussed at bedside. Continue in sling until follow up to protect repair. ( 6 wks post op) May remove sling to shower and change clothing. Also remove sling 2- 3 times a day to continue home exercises for hand, wrist and elbow range of motion. No weight in operative arm. No lifting anything heavier than coffee cup. Referral for Therapy given/sent electronically, please call Therapy facility to schedule as soon aspossible documented in this [facility]10-10-2024 Telephone encounter Note* Telephone Encounter - Isaac Stacy NP - 11/20/2023 12:04 PM EDT Pended an order for Dr. Gong. He will send that later today. [facility] [id number] Miscellaneous Notes* Telephone Encounter - Isaac Stacy NP - 11/20/2023 12:04 PM EDT Pended an order for Dr. Gong. He will send that later today. * Telephone Encounter - Keri Hernandez - 11/20/2023 10:05 AM EDT Patient called and left stating he needs a pain med sent to his pharmacy for his sx tomorrow? Please advise [phone]. documented in this [facility]10-10-2024 Telephone encounter Note* Telephone Encounter - Keri Hernandez - 11/20/2023 10:05 AM EDT Patient called and left stating he needs a pain med sent to his pharmacy for his sx tomorrow? Please advise [phone]. [facility] [id number] History of Present illness Narrative* Yo Corrlaes, FELICITY - 10/23/2023 8:30 AM EDT Images from the original note were not included. GENERAL HISTORY AND PHYSICAL: NAME: Richard Dumont : 1970 HISTORY OF PRESENT ILLNESS: Richard Dumont is an 53 y.o. @ male. Here for surgery instructions - (L) SHOULDER SCOPE 11/21/2023 @[facility] PAST MEDICAL HISTORY: Past Medical History: Diagnosis Date Asthma, acute (CMS/HCC) Diabetes (CMS/HCC) Hypertension (CMS/HCC) PAST SURGICAL HISTORY: Past Surgical History: Procedure Laterality Date CHOLECYSTECTOMY SOCIAL HISTORY: Social History Occupational History Not on file Tobacco Use Smoking status: Never Smokeless tobacco: Current Types: Chew Substance and Sexual Activity Alcohol use: Yes Drug use: Never Sexual activity: Not on file ALLERGIES: Allergies Allergen Reactions Metformin Diarrhea and GI intolerance MEDICATIONS: Current Outpatient Medications Medication Instructions atorvastatin (Lipitor) 20 MG tablet chlorthalidone (Hygroton) 25 MG tablet glipiZIDE (Glucotrol) 10 MG tablet hydrOXYzine HCl (Atarax) 25 MG tablet Levemir FlexTouch 100 UNIT/ML pen lisinopril 20 MG tablet omeprazole (PriLOSEC) [address] capsule potassium chloride ER (Micro-K) 10 MEQ ER capsule 10 mEq, Oral, 2 times daily, Do not crush or chew. ProAir HFA 108 (90 Base) MCG/ACT inhaler sildenafil (VIAGRA) 50 mg, Oral, Daily PRN venlafaxine (Effexor) 37.5 MG tablet REVIEW OF SYSTEMS: Review of Systems Constitutional: Negative for fatigue, fever and unexpected weight change. Eyes: Negative for redness and visual disturbance. Gastrointestinal: Negative for abdominal pain. Denies Indigestion Musculoskeletal: See note: Skin: Negative for color change and rash. Neurological: Negative for light-headedness and numbness. Vitals: Body mass index is 38.38 kg/m . PHYSICAL EXAM: Physical Exam Constitutional: General: He is not in acute distress. Appearance: Normal appearance. HENT: Head: Normocephalic and atraumatic. Right Ear: External ear normal. Left Ear: External ear normal. Nose: Nose normal. No rhinorrhea. Mouth/Throat: Mouth: Mucous membranes are moist. Pharynx: No posterior oropharyngeal erythema. Eyes: Extraocular Movements: Extraocular movements intact. Conjunctiva/sclera: Conjunctivae normal. Cardiovascular: Rate and Rhythm: Normal rate and regular rhythm. Pulses: Normal pulses. Heart sounds: No murmur heard. Pulmonary: Effort: Pulmonary effort is normal. No respiratory distress. Breath sounds: Normal breath sounds. No wheezing or rhonchi. Abdominal: Palpations: Abdomen is soft. Tenderness: There is no abdominal tenderness. Musculoskeletal: Cervical back: Normal range of motion and neck supple. Lymphadenopathy: Cervical: No cervical adenopathy. Skin: General: Skin is warm and dry. Findings: No erythema or rash. Neurological: General: No focal deficit present. Mental Status: He is alert and oriented to person, place, and time. Psychiatric: Mood and Affect: Mood normal. Behavior: Behavior normal. Orders Placed This Encounter Procedures Basic metabolic panel Standing Status: Future Number of Occurrences: 1 Standing Expiration Date: 10/15/2024 Order Specific Question: Print requisition? Answer: No ASSESSMENT: ICD-10-CM 1. Preop examination Z01.818 Basic metabolic panel Basic metabolic panel PLAN: This patient presents for preadmission testing for upcoming surgery. Complete history with medical, surgery, and current allergy and medication list obtained. Consent for surgery signed and witnessed after verbal consent to perform surgery received. All questions answered and proposed surgeryscheduled. (L) SHOULDER SCOPE 11/20 @[facility] SX INSTRUCTIONS GIVEN TODAY 10/22 @8:30AM - ENID CRUZ GIVEN TODAY Patient presents today for fitting of left [id number] Shoulder Orthosis, Acromioclavicular, Prefabricated, Off the Shelf today. Brace is used to immobilize and increase stability of the shoulder joint to allow for full and complete healing. Fitting and adjustments were done under physician order and supervision. Patient was placed in the brace and all straps were adjusted for proper fit. Brace was dispensed to the patient and [facility] Patient Agreement was completed and signed. Warranty information was given and explained to the patient with good understanding. Proper care and fitting was also explained to the patient with good understanding. Follow up for 12/03 @9AM [place]. documented in this [facility]08-23-2024 Telephone encounter Note* Telephone Encounter - Tiffany Torres - 10/03/2023 12:04 PM EDT Patient returning call for scheduling a surgery. [phone]. He does not have VM would like you to text it if you can. [facility] [id number] Miscellaneous Notes* Telephone Encounter - Tiffany Torres - 10/03/2023 12:04 PM EDT Patient returning call for scheduling a surgery. [phone]. He does not have VM would like you to text it if you can. documented in this [facility]03[facility]20[facility] History of Present illness Narrative* FELICITY Steve - 03/24/2023 2:15 PM ESTAssociated Order(s): M Inj/Asp: L acromioclavicular; L Inj/Asp: L subacromial bursa Post-Procedure Diagnose(s): Impingement syndrome of left shoulder; Arthritis of left acromioclavicular joint Images from the original note were not included. HISTORY OF PRESENT ILLNESS: EST PT Richard Dumont is an 52 y.o. @ male. 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 ALLERGIES: Allergies Allergen Reactions Metformin Diarrhea and GI intolerance HOME MEDICATIONS: Current Outpatient Medications Medication Instructions atorvastatin (Lipitor) 20 MG tablet chlorthalidone (Hygroton) 25 MG tablet glipiZIDE (Glucotrol) 10 MG tablet HYDROcodone-acetaminophen ([place]) 5-325 MG tablet 1 tablet, Oral, Every 6 hours hydrOXYzine HCl (Atarax) 25 MG tablet Levemir FlexTouch 100 UNIT/ML pen lisinopril 20 MG tablet omeprazole (PriLOSEC) [address] capsule omeprazole OTC (PRILOSEC OTC) 20 mg, Oral, Daily before breakfast, Do not crush, chew, or split. potassium chloride ER (Micro-K) 10 MEQ ER capsule 10 mEq, Oral, 2 times daily, Do not crush or chew. ProAir HFA 108 (90 Base) MCG/ACT inhaler sildenafil (VIAGRA) 50 mg, Oral, Daily PRN venlafaxine (Effexor) 37.5 MG tablet PHYSICAL EXAM: Shoulder Musculoskeletal Exam Inspection Left Left shoulder inspection is normal. Ecchymosis: none Peripheral edema: none Atrophy: none Deformity: AC joint prominence Deformity comment: + adithya deformity Masses: none Palpation Left Crepitus: no crepitus Increased warmth: none Tenderness: present Anterior shoulder: mild Posterior shoulder: mild Clavicle: none AC joint: moderate Sternoclavicular joint: none Rotator cuff: mild Greater tuberosity: none Trapezius: mild Medial scapula: none Superior pole of scapula: none Inferior pole of scapula: none Bicipital groove: none Proximal biceps: none Distal biceps: none Lateral arm: mild Elbow: none Range of Motion Right Right shoulder active abduction: + pain passing 90 degrees. Left Left shoulder range of motion is normal. Active ROM: pain. Passive ROM: pain. Internal rotation: L4. Range of motion additional comments: + pain passing 90 degrees. Strength Left External rotation: 5/5. External rotation is affected by pain. Internal rotation: 5/5. Internal rotation is not affected by pain. Abduction: 4+/5. Abduction is affected by pain. Biceps: 5/5. Biceps are not affected by pain. Triceps: 5/5. Neurovascular Left Radial pulse: normal and 2+ Capillary refill: <3 sec Axillary nerve sensory distribution: normal Scapula Left Left shoulder scapula is normal. Position: normal Winging: none Special Tests Left Rotator Cuff Signs Neer's test: positive Jimenez test: positive Painful arc test: positive Biceps/darrell Signs Clicking/popping: positive Speed's test: negative AC Joint Signs Active horizontal adduction pain: positive Single finger test: positive General Constitutional: appears stated age Neurological: alert and oriented x3 Vitals: Body mass index is 38.38 kg/m . Tobacco Use: High Risk (03/24/2023) Patient History Smoking Tobacco Use: Never Smokeless Tobacco Use: Current Passive Exposure: Not on file Alcohol Use: Not on file IMAGING: M Inj/Asp: L acromioclavicular on 03/25/2023 1:40 PM Indications: pain Details: 21 G needle, anterolateral approach Medications: 0.5 mL bupivacaine PF 0.5 %; 40 mg methylPREDNISolone acetate 40 MG/ML Outcome: tolerated well, no immediate complications Given with 0.5ml of 0.5% bupivicaine Procedure, treatment alternatives, risks and benefits explained, specific risks discussed. Consent was given by the patient. Patient was prepped and draped in the usual sterile fashion. L Inj/Asp: L subacromial bursa on 03/25/2023 1:40 PM Indications: pain Details: 21 G needle, posterior approach Medications: 40 mg methylPREDNISolone acetate 40 MG/ML; 1 mL bupivacaine PF 0.5 % Outcome: tolerated well, no immediate complications Utilizing aseptic technique with universal precautions . Pt given injection Left Shoulder SA space ( code [id number] LT) Pt noted improved pain post injection Procedure, treatment alternatives, risks and benefits explained, specific risks discussed. Consent was given by the patient. Patient was prepped and draped in the usual sterile fashion. No orders of the defined types were placed in this encounter. ASSESSMENT: ICD-10-CM 1. Acute pain of left shoulder M25.512 2. Traumatic partial tear of left biceps tendon, subsequent encounter S46.212D 3. Arthritis of left acromioclavicular joint M19.012 4. Impingement syndrome of left shoulder M75.42 PLAN: Recommend recheck in 2 weeks. Majority of pain localized to the AC joint, risks and benefits discussed surgical and nonsurgical treatment options and patient consenting to injection today in the AC joint and subacromial space. Consider MRI if symptoms not improving. Patient's biceps is nontender, remote deformity consistent with prior rupture. Patient has been doing a lot of lifting and cross-body motion with point tender AC joint pain. Consider MRI possible need for Genevieve procedure and assess integrity of rotator cuff on follow up if weakness persist. Questions answered in laymen terms at the bedside. The diagnosis, home exercise plan and any ongoing restrictions/ recommendations reviewed. If unable to be reached in office, I recommend evaluation at nearest Emergency Room if any symptoms worsened or new symptoms develop for requiring urgent evaluation. FELICITY Steve documented in this encounterMercy [facility]-Brooks [id number] Evaluation note* Encounter Date Diagnosis Assessment Notes Treatment Notes Treatment Clinical Notes Mar, Type 2 diabetes mellitus without complications (ICD-10 - E11.9) He continues to take the glipizide, will add Levimir now that he has insurance, discussed to start at 10 units daily and then to continue to monitor his blood glucose levels and call in 2 weeks with an update as we may need to adjust the dose for better control. Will repeat A1c in 3 months. Patient is advised to work on healthy diet choices and appropriate servings, weight control, regular exercise as directed, reduced fat intake, and salt avoidance. Patient voiced understanding of thisand agrees to this plan. Prior to your visit today we reviewed your chart and outlined the testing and treatment needed for your care. We discussed possible complications of diabetes including risk of heart disease, stroke, and kidney disease. Your goal is to keep uou HgA1C below 7 (preferably <6.5) and your blood pressure less than 130/85 (and preferably < 120/80) and mataining a healthy weight with a BMI less than 26. We are working together to acheive these goals with the following plan; healthier diet, understanding your medications, and your compliance. Barriers to these goals have been discussed. You havebeen given educational handouts. Mar,Wellness examination (ICD-10 - Z00.00)Personalized health advice was given to the beneficiary including a written plan for screenings discussed and provided. Advanced care planning reviewed and/or information given as requested. Additional counseling was provided here today in regards to general topics regarding health education were discussed in detail. All preventative issues were discussed including remaining a nonsmoker, colorectal screening, the importance of proper sleep for brain health maintenance, maintaining a heart-healthy balanced diet, recognizing and addressing signs of anxiety and depression, maintaining positive relationships with family and friends. Mar,Long term (current) use of insulin (ICD-10 - Z79.4) Mar,Gastroesophageal reflux disease with esophagitis without hemorrhage (ICD-10 - K21.00)Reflux symptoms remain unchanged. Discussed the importance of meal content. They should avoid overeating and eating meals late in the evening. He would like to stop the medication. Discussed that he will need to wean off the omeprazole. Discussed how to wean off the omperazole. Pt verbalzies underst anding. Mar,Erectile dysfunction, unspecified erectile dysfunction type (ICD-10 - N52.9)Sindenafil as needed. But notes that his is not working. Would like a referral to urology. will also test testosterone levels. Mar,rthritis of both knees (ICD-10 - M17.0)The patient is suffering from degenerative arthritis involving the knee. We discussed the conservative treatment options which can be beneficial in relieving pain, including gentle non-impact motion exercise, knee braces. Mar,nxiety (ICD-10 - F41.9)Remains stable on current therapeutic dose. Patient is encouraged to stay active and remain involved. Try to keep themselves busy. Take medication as directed and we will continue to monitor. Mar,rimary hypertension (ICD-10 - I10)Notes that he has not taken his blood pressure medication in a few days. Discussed the need to takethis everyday and the need to restart. Prior to your visit today we reviewed your chart and outlined the tetsing and treatment needed for your care. We discussed the possible complications of high blood pressure, including increased risk for heart disease, stroke, and kidney disease. Our goal is to keep your blood pressure below 130/85 (an preferably < 120/80) and maintain a healthy weight with a BMI less than 26. We are working together to acheive these goals with the following plan; healthier diet, increased activity and exercise, understanding your medicaitons, and your complaince. You have been given relevant education handouts. Mar,Screening for prostate cancer (ICD-10 - Z12.5)Risks and benefits of PSA screening discussed with patient today. Patient wishes to get PSA screening done. PSA screening lab ordered today. Mar,Vasectomy evaluation (ICD-10 - Z30.09)Need referral for vasectomy Mar,Other chronic pain (ICD-10 - G89.29) Mar,ain in left shoulder (ICD-10 - M25.512)He would like to go back to ortho for his left shoulder, continues to have pain was seen by [facility] in [place], was told he had a bicep tear would like to be seen due to the continued pain. Referralplaced. Mar,Screening for colon cancer (ICD-10 - Z12.11)Discussed with patient the colon cancer screening options including cologuard and colonoscopy. Risks and benefits of each discussed. Patient opts for colonoscopy. [employer] Other 12-27-2023 Evaluation note* Encounter Date Diagnosis Assessment Notes Treatment Notes Treatment Clinical Notes Jan, Type 2 diabetes mellitus without complications (ICD-10 - E11.9) [employer] Other 11-10-2021 Evaluation note Includes: Assessments for all patient encounters Findings Encounter Date Assessment of body mass inde x [Body mass index [BMI] 40.0-44.9, adult] Medical Established Patient with Noreen Champion LINE PAINTING MACHINE OPERATOR 12/20/2020 Bipolar disorder NOS Medical Established Patient with Noreen Champion LINE PAINTING MACHINE OPERATOR 12/20/2020 Male erectile dysfunction Medical Establ ished Patient with Noreen Darern LINE PAINTING MACHINE OPERATOR 12/20/2020 Systemic hypertension Medical Establishe d Patient with Noreen Darren LINE PAINTING MACHINE OPERATOR 12/20/2020 Type 2 diabetes mellitus - uncomplicated, uncontrolled Medical Established Patient with Noreen Champion LINE PAINTING MACHINE OPERATOR 12/20/2020 Assessment of body mass index Medical Es tablished Patient with Tiffanie Lopez LINE PAINTING MACHINE OPERATOR 12/05/2020 Asthma well controlled Medical Establish ed Patient with Tiffanie Lopez LINE PAINTING MACHINE OPERATOR 12/05/2020 Bipolar disorder NOS Medical Established Patient with Tiffanie Lopez LINE PAINTING MACHINE OPERATOR 12/05/2020 Nonorganic sleep apnea Medical Establish ed Patient with Tiffanie Lopez LINE PAINTING MACHINE OPERATOR 12/05/2020 Systemic hypertension Medical Establishe d Patient with Tiffanie Lopez LINE PAINTING MACHINE OPERATOR 12/05/2020 Type 2 diabetes mellitus - uncomplicated, uncontrolled Medical Established Patient with Tiffanie Lopez LINE PAINTING MACHINE OPERATOR 12/05/2020 Alcohol abuse - uncomplicated [facility] with Jannet Garcia LPCC-S 11/13/2020 Anxiety disorder NOS [facility] with Jannet Garcia LPCC-S 11/13/2020 Bipolar disorder NOS [facility] with Jannet Garcia LPCC-S 11/13/2020 Allergic rhinitis Telemedicine Establi sted Patient with Tiffanie Lopez LINE PAINTING MACHINE OPERATOR 11/13/2020 Hypertension Telemedicine Establi sted Patient with Tiffanie Lopez LINE PAINTING MACHINE OPERATOR 11/13/2020 Z20.822 - Contact with and (suspected) exposure to COVID-19 Telemedicine Establisted Patient with Tiffanie Lopez LINE PAINTING MACHINE OPERATOR 11/13/2020 Body mass index CPS Diabetes Mgmt wi th Tiffanie Lopez LINE PAINTING MACHINE OPERATOR 08/01/2020 Essential hypertension CPS Diabetes Mgmt with Tiffanie Lopez LINE PAINTING MACHINE OPERATOR 08/01/2020 Obesity due to excess calories CPS Diabe paris Mgmt with Tiffanie Lopez LINE PAINTING MACHINE OPERATOR 08/01/2020 RNDx tobacco abuse CPS Diabetes Mgmt wi th Tiffanie Lopez [facility] 08/01/2020 Statin therapy prescribed CPS Diabetes M gmt with Tiffanie Lopez LINE PAINTING MACHINE OPERATOR 08/01/2020 Therapeutic monitoring test ordered/performed for angiotensin converting enzyme / antiotensin receptor blockers CPS Diabetes Mgmt with Tiffanie Lopez LINE PAINTING MACHINE OPERATOR 08/01/2020 Type 2 diabetes mellitus CPS Diabetes Mg mt with Tiffanie Lopez LINE PAINTING MACHINE OPERATOR 08/01/2020 Adjustment disorder with anx iety and depressed mood BH Established Patient with Leigh Wyman LISWS 07/20/2020 Type 2 diabetes mellitus - uncomplicated, uncontrolled Medical Established Patient with Noreen Champion LINE PAINTING MACHINE OPERATOR 07/20/2020 Adjustment disorder with anx iety and depressed mood BH Established Patient with Leigh Wyman LISWS 05/22/2020 Body mass index [Body mass i ndex [BMI] 39.0-39.9, adult] Medical Established Patient with Noreen Champion LINE PAINTING MACHINE OPERATOR 05/22/2020 Diabetes Risk Test Score was six score 05/22/2020 Medical Established Patient with Noreen Champion LINE PAINTING MACHINE OPERATOR 05/22/2020 Obesity due to excess calories Medical E stablished Patient with Noreen Champion LINE PAINTING MACHINE OPERATOR 05/22/2020 [facility] Work Phone: 1(271) 929-442610-26-2021 Evaluation note Includes: Assessments for all patient encounters Findings Encounter Date Assessment of body mass index Medical Es tablished Patient with Tiffanie Lopez LINE PAINTING MACHINE OPERATOR 12/05/2020 Asthma well controlled Medical Establish ed Patient with Tiffanie Lopez LINE PAINTING MACHINE OPERATOR 12/05/2020 Bipolar disorder NOS Medical Established Patient with Tiffanie Lopez LINE PAINTING MACHINE OPERATOR 12/05/2020 Nonorganic sleep apnea Medical Establish ed Patient with Tiffanie Lopez LINE PAINTING MACHINE OPERATOR 12/05/2020 Systemic hypertension Medical Establishe d Patient with Tiffanie Lopez LINE PAINTING MACHINE OPERATOR 12/05/2020 Type 2 diabetes mellitus - uncomplicated, uncontrolled Medical Established Patient with Tiffanie Lopez LINE PAINTING MACHINE OPERATOR 12/05/2020 Alcohol abuse - uncomplicated [facility] Jannet Garcia LP[facility] 11/13/2020 Anxiety disorder NOS BH [facility] with Jannet Garcia LPCC-S 11/13/2020 Bipolar disorder NOS BH [facility] with Jannet Garcia LPCC-S 11/13/2020 Allergic rhinitis Telemedicine Establi sted Patient with Tiffanie Lopez LINE PAINTING MACHINE OPERATOR 11/13/2020 Hypertension Telemedicine Establi sted Patient with Tiffanie Lopez LINE PAINTING MACHINE OPERATOR 11/13/2020 Z20.822 - Contact with and (suspected) exposure to COVID-19 Telemedicine Establisted Patient with Tiffanie Lopez LINE PAINTING MACHINE OPERATOR 11/13/2020 Body mass index CPS Diabetes Mgmt wi th Tiffanie Lopez LINE PAINTING MACHINE OPERATOR 08/01/2020 Essential hypertension CPS Diabetes Mgmt with Tiffanie Lopez LINE PAINTING MACHINE OPERATOR 08/01/2020 Obesity due to excess calories CPS Diabe paris Mgmt with Tiffanie Lopez LINE PAINTING MACHINE OPERATOR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 [id number] DateCommentsNote 4ReasonCommentsPost-opReasonCommentsPain Medical History (unrecognize d section and content) Description History of diabetes mellitus 05/22/2020 History of hypertension 05/22/2020 History of psychiatric disorders 021 Evaluations & Outcomes (unre cognized section and content) Includes: Evaluations & Outcomes for active GoalsNo Outcomes Recorded Includes: Evaluations & Outcomes for active GoalsNo Outcomes Recorded Care Teams (unrecognized sec tion and content) Team MemberRelationshipSpecialtyStart DateEnd Date Korina Crews NP [address] [facility] [place] [address] [place] [address] PCP - GeneralFamily Medicine03/24/23Team MemberRelationshipSpecialtyStart DateEnd Date Korina Crews NP [address] [place] [address] PCP - [facility]03/24/23 Team Status: Active Member Role Status Dates Korina Crews APRN FLOOR COVERER-C Primary Care Provider Active Team Status: Active Member Role Status Dates Korina Crews APRN FLOOR COVERER-C Primary Care Provider, Attending Provider Active Start: March 22, 2023 Team Status: Inactive Member Role Status Dates Korina Crews APRN FLOOR COVERER-C Primary Care Provider, Attending Provider Active Start: April 21, 2023 End: April 21, 2023 Team Status: Inactive Member Role Status Dates Korina Crews APRN FLOOR COVERER-C Primary Care Provider Active Start: April 30, 2023 End: April 30, 2023Imad Lia , MDAttending ProviderActiveStart: April 30, 2023 End: April 30, 2023 Team Status: Active Member Role Status Dates Korina Crews APRN FLOOR COVERER-C Primary Care Provider Active Start: April 30, 2023 Imad Asasiddhartha , MDAttending Provider, Other ProviderActiveStart: April 30, 2023 Team MemberRelationshipSpecialtyStart DateEnd Date Korina Crews NP [address] [place] [address] [facility]03/24/23Team MemberRelationshipSpecialtyStart DateEnd Date Korina Crews NP [address] [place] [address] [facility]03/24/23Team MemberRelationshipSpecialtyStart [place] [address] [place] [address] PCP - GeneralFamily Medicine03/24/23Team MemberRelationshipSpecialtyStart DateEnd Date Korina Crews NP [address] [facility] [place] [address] PCP - GeneralFamily Medicine03/24/23Team MemberRelationshipSpecialtyStart DateEnd Date Korina Crews NP [address] [facility] [place] [address] PCP - GeneralFamily Medicine03/24/23Team MemberRelationshipSpecialtyStart DateEnd Date Korina Crews NP [address] [facility] [place] [address] PCP - GeneralFamily Medicine03/24/23Team MemberRelationshipSpecialtyStart DateEnd Date Korina Crews NP [address] [facility] [place] [address] PCP - GeneralFamily Medicine03/24/23Team MemberRelationshipSpecialtyStart DateEnd Date Korina Crews NP [address] [facility] [place] [address] PCP - GeneralFamily Medicine03/24/23Team MemberRelationshipSpecialtyStart DateEnd Date Korina Crews NP [address] [facility] [place] [address] PCP - GeneralFamily Medicine03/24/23Team MemberRelationshipSpecialtyStart DateEnd Date Korina Crews NP [address] [facility] [place] [address] PCP - Generalmily Medicine03/24/23Team MemberRelationshipSpecialtyStart DateEnd Date Korina Crews NP [address] [facility] [place] [address] [facility] - [facility]/24/23Team MemberRelationshipSpecialtyStart DateEnd Date Korina Crews NP [address] [facility] [place] [address] PCP - Generalmily Medicine03/24/23Team MemberRelationshipSpecialtyStart DateEnd Date Korina Crews NP [address] [facility] [place] [address] PCP - Generalmi Medicine03/24/23Team MemberRelationshipSpecialtyStart DateEnd Date Korina Crews NP [address] [facility] [place] [address] PCP - Generalmily Medicine03/24/23Team MemberRelationshipSpecialtyStart DateEnd Date Korina Crews NP [address] [facility] [place] [address] PCP - Generalmi Medicine03/24/23 FOR RECORDS PERTAINING TO PATIENTS WHO ARE OR HAVE BEEN ENROLLED IN A CHEMICAL DEPENDENCY/SUBSTANCEABUSE PROGRAM, SOME INFORMATION MAY BE OMITTED. This clinical summary was aggregated from multiple sources. Caution should be exercised in using it in the provision of clinical care. This summary normalizes information from multiple sources, and as a consequence, information in this document may materially change the coding, format and clinical context of patient data. In addition, data may be omitted in some cases. CLINICAL DECISIONS SHOULD BE BASED ON THE PRIMARY CLINICAL RECORDS. [facility] [employer] [facility]. provides no warranty or guarantee of the accuracy or completeness of information in this document.
== END 2025-01-05 09:25 | disposition home or self-care (01) ==
LOC: US 09:24
PROVIDERS: PCP Nurse Practitioner Family; Visit Provider Nurse Practitioner Family
DX: R19.04 Left lower quadrant abdominal swelling, mass and lump (principal)
CPT/HCPCS: 76705